=== PATIENT | male | born 1990 | race Caucasian/White ===

== ENCOUNTER 2020-09-16 14:57 | Emergency (ER) | payer MEDICARE, MEDICAID, SELFPAY ==
[2020-09-16 15:13] VITALS: BP 117/76; PULSE 106; RESP 18; TEMP 37.3; O2SAT 98
--- NOTE | 2020-09-16 15:16 | ED.GENADULT ---
HPI - General Adult General Chief complaint: Skin/Abscess/Foreign Body Stated complaint: possible spider bite on leg Source: patient Mode of arrival: ambulatory Limitations: no limitations History of Present Illness HPI narrative: Tim is a 29M with a PMH of bipolar depression and anxiety that presented to the ED with a wound on his left martinez. He hit it on his dash board a couple days. Since then it has had expanding erythema, purulent drainage and pain. he denies fevers, chills, N/V CP and SOB. He has had some sinus congestion. Related Data Home Medications Medication Instructions Recorded Confirmed lamotrigine 25 mg PO BID 09/16/20 09/16/20 methylphenidate HCl 18 mg PO DAILY 09/16/20 09/16/20 Allergies Allergy/AdvReac Type Severity Reaction Status Date / Time No Known Allergies Allergy Verified 09/16/20 15:10 Review of Systems Constitutional: Constitutional: Reports no additional constitutional complaints Eyes: Eyes: Reports no additional eye complaints ENT: Reports system reviewed and no additional complaints, except as documented Cardiovascular: Cardiovascular: Reports no additional cardiovascular complaints Respiratory: Respiratory: Reports no additional respiratory complaints Gastrointestinal: Gastrointestinal: Reports no additional gastrointestinal complaints Genitourinary: Genitourinary: Reports no additional male genitourinary complaints Musculoskeletal: Musculoskeletal: Reports no additional musculoskeletal complaints Integumentary/Breasts: Skin/Breast: Reports as per HPI Neurologic: Reports system reviewed and no additional complaints, except as documented Psychiatric: Psychiatric: Reports no additional psychiatric complaints Endocrine: Endocrine: Reports no additional endocrine complaints Hematologic/Lymphatic: Hematologic/Lymphatic: Reports no additional hematologic/lymphatic complaints Allergic/Immunologic: Allergic/Immunologic: Reports no additional allergic/immunologic complaints Exam Const: General: no acute distress and alert Orientation/consciousness: patient oriented x3 Limitations: No altered mental status HENMT: Head: normal to inspection Mouth: Yes Normal oral and palatal mucosa present Eyes: Conjunctivae: conjunctivae normal Pupils: Equal, round and reactive pupils present Neck: Neck: normal visual inspection Chest: Chest palpation & inspection: normal inspection of the chest Resp: Effort & Inspection: normal respiratory effort Auscultation: clear to auscultation bilaterally Cardio: Rate: regular rate Rhythm: regular rhythm Skin: Other: Left anterior martinez had a quarter sized area with erythema and slight yellow drainage Neuro: General: patient oriented x3 and moves all extremities Psych: Appearance: grossly normal Mental Status: mental status grossly normal Course Course Emergency Course: He was given a dose of clindamycin in the ED Vital Signs Vital signs: Vital Signs Temperature 99.2 F 09/16/20 15:13 Pulse Rate 106 H 09/16/20 15:13 Respiratory Rate 18 09/16/20 15:13 Blood Pressure 117/76 09/16/20 15:13 Pulse Oximetry 98 09/16/20 15:13 Temperature 99.2 F 09/16/20 15:13 Pulse Rate 106 H 09/16/20 15:13 Respiratory Rate 18 09/16/20 15:13 Blood Pressure 117/76 09/16/20 15:13 Pulse Oximetry 98 09/16/20 15:13 Medical Decision Making Vital Signs Vital Signs: Vital Signs Temperature 99.2 F 09/16/20 15:13 Pulse Rate 106 H 09/16/20 15:13 Respiratory Rate 18 09/16/20 15:13 Blood Pressure 117/76 09/16/20 15:13 Pulse Oximetry 98 09/16/20 15:13 Temperature 99.2 F 09/16/20 15:13 Pulse Rate 106 H 09/16/20 15:13 Respiratory Rate 18 09/16/20 15:13 Blood Pressure 117/76 09/16/20 15:13 Pulse Oximetry 98 09/16/20 15:13 Discharge Plan Discharge Clinical Impression: Cellulitis Patient Disposition: Home, Self-Care Condition: Stable Instructions: Antibiotic Form Addition
[2020-09-16] MEDS: CLINDAMYCIN HCL 150 MG CAP 450 MG PO (15:22)
== END 2020-09-16 15:39 | disposition home or self-care (01) ==
PROVIDERS: Emergency Provider Family Medicine
DX: L03.116 Cellulitis of left lower limb (principal)
CPT/HCPCS: 99283; A9270

== ENCOUNTER 2021-04-21 17:38 | Emergency (ER) | payer OTHER, SELFPAY ==
--- NOTE | 2021-04-21 18:03 | ED.NAVMDI ---
HPI - Nausea/Vomiting/Diarrhea General Stated complaint: migraine Time Seen by Provider: 04/21/21 18:03 Related Data Home Medications Medication Instructions Recorded Confirmed lamotrigine 25 mg PO BID 09/16/20 09/16/20 methylphenidate HCl 18 mg PO DAILY 09/16/20 09/16/20 Allergies Allergy/AdvReac Type Severity Reaction Status Date / Time No Known Allergies Allergy Verified 09/16/20 15:10 Discharge Plan Discharge Prescriptions: No Action lamotrigine 25 mg tablet 25 mg PO BID RF: 0 methylphenidate HCl 18 mg tablet extended release 24hr 18 mg PO DAILY RF: 0 clindamycin HCl 150 mg capsule 450 mg PO TID 5 Days Qty: 45 RF: 0
--- NOTE | 2021-04-21 18:05 | ED.HA ---
HPI - Headache General Chief Complaint: Headache Stated Complaint: migraine Time Seen by Provider: 04/21/21 18:03 Source: patient Mode of arrival: ambulatory Limitations: no limitations History of Present Illness HPI Narrative: 30-year-old male with bipolar disorder on lamotrigine, presents to the ER with a 2 day history of -- generalized headache which came on gradually. -- Nausea with multiple episodes of vomiting. -- Photophobia and phonophobia. No history of head injury. no history of fever. No focal neuro deficits. MD elicited complaint: headache Onset (ago): day(s) ( Started 2 days ago) Onset description: gradually Location: generalized Severity: moderate Quality & Timing: aching Exacerbating factors: light and noise Relieving factors: nothing Context: occurred at rest Associated symptoms: none Treatments prior to arrival: none Related Data Home Medications Medication Instructions Recorded Confirmed lamotrigine 25 mg PO BID 09/16/20 04/21/21 methylphenidate HCl 18 mg PO DAILY 09/16/20 04/21/21 Allergies Allergy/AdvReac Type Severity Reaction Status Date / Time No Known Allergies Allergy Verified 04/21/21 18:08 Review of Systems Review of Systems: All systems reviewed & are unremarkable except as noted in HPI and below Constitutional: Constitutional: Reports as per HPI and Reports no additional constitutional complaints Eyes: Eyes: Reports as per HPI and Reports no additional eye complaints ENT: Reports system reviewed and no additional complaints, except as documented Cardiovascular: Cardiovascular: Reports as per HPI and Reports no additional cardiovascular complaints Respiratory: Respiratory: Reports as per HPI and Reports no additional respiratory complaints Gastrointestinal: Gastrointestinal: Reports as per HPI, Reports nausea and Reports vomiting Genitourinary: Genitourinary: Reports no additional male genitourinary complaints Musculoskeletal: Musculoskeletal: Reports no additional musculoskeletal complaints Integumentary/Breasts: Skin/Breast: Reports system reviewed and no additional complaints, except as docu Neurologic: Reports system reviewed and no additional complaints, except as documented and Reports headache(s) Psychiatric: Psychiatric: Reports no additional psychiatric complaints Endocrine: Endocrine: Reports no additional endocrine complaints Hematologic/Lymphatic: Hematologic/Lymphatic: Reports no additional hematologic/lymphatic complaints Allergic/Immunologic: Allergic/Immunologic: Reports no additional allergic/immunologic complaints Exam Const: General: no acute distress and alert Orientation/consciousness: patient oriented x3 HENMT: Head: normal to inspection Eyes: Conjunctivae: conjunctivae normal Pupils: Equal, round and reactive pupils present EOM: EOMs intact bilaterally Direct Ophthalmoscopy: photophobia Neck: Neck: normal visual inspection and no lymphadenopathy Chest: Chest palpation & inspection: normal inspection of the chest Resp: Effort & Inspection: normal respiratory effort Auscultation: clear to auscultation bilaterally Cardio: Rate: regular rate Rhythm: regular rhythm GI: GI Palp: Yes Soft to palpation : General: Yes no CVA tenderness Testes: Testes normal Back/Spine/Pelvis: Back: no CVA tenderness Skin: General skin exam: normal color Rashes: no rashes Neuro: General: patient oriented x3, no meningeal signs, no focal motor deficits and CN's II-XI intact bilaterally Speech: normal speech Extrem: General: normal to inspection Psych: Appearance: grossly normal Mental Status: mental status grossly normal Course Course Emergency Course: headache improved with injectable Toradol and Compazine. Vital Signs Vital signs: Vital Signs Temperature 36.3 C L 04/21/21 18:06 Pulse Rate 80 04/21/21 18:06 Respiratory Rate 16 04/21/21 18:06 Blood Pressure 126/81 04/21/21 18:06 Pulse Oximetry 98 04/21/21 18
[2021-04-21 18:06] VITALS: BP 126/81; PULSE 80; RESP 16; TEMP 36.3; O2SAT 98
[2021-04-21] MEDS: KETOROLAC 30 MG/ML VIAL (*BKC) IM (18:34)
[2021-04-21] MEDS: PROCHLORPERAZINE EDISYLATE 10 MG/2 ML VIAL IM (18:35)
--- NOTE | 2021-04-21 19:15 | PC.NURSE ---
Report given to ALEENA Orozco
[2021-04-21 19:45] VITALS: BP 120/78; PULSE 78; RESP 16; TEMP 36.4; O2SAT 98
== END 2021-04-21 19:48 | disposition home or self-care (01) ==
PROVIDERS: Emergency Provider Internal Medicine Critical Care Medicine; PCP Family Medicine
DX: R51.9 Headache, unspecified (principal)
CPT/HCPCS: 96372; 99284; J0780; J1885

== ENCOUNTER 2021-06-10 22:49 | Emergency (ER) | payer OTHER, SELFPAY ==
[2021-06-10 22:55] VITALS: BP 131/79; PULSE 80; RESP 17; TEMP 36.8; O2SAT 99
--- NOTE | 2021-06-10 23:07 | ED_ITS ---
HPI - Skin/Abscess/Foreign Bdy General Chief complaint: Skin/Abscess/Foreign Body Stated complaint: bug bite Source: patient Mode of arrival: ambulatory Limitations: no limitations History of Present Illness HPI narrative: this is a 30-year-old gentleman that presents with a small lesion to his right lateral thigh that is currently not draining mildly erythematous with no fever or chills. complaint: abscess/boil Onset (ago): day(s) Tetanus up to date: unsure Location: [facility] Related Data Home Medications Medication Instructions Recorded Confirmed lamotrigine 25 mg PO BID 09/16/20 06/10/21 Allergies Allergy/AdvReac Type Severity Reaction Status Date / Time cat dander Allergy Difficulty Verified 06/10/21 23:10 Breathing divalproex sodium Allergy Abdominal Verified 06/10/21 23:06 [From Depakote] Pain methylphenidate Allergy Jittery Verified 06/10/21 23:10 [From Ritalin] olanzapine [From Zyprexa] Allergy Unknown Verified 06/10/21 23:10 Review of Systems Review of Systems: All systems reviewed & are unremarkable except as noted in HPI and below PMFSH Past Medical History Medical History Bipolar 1 disorder Exam Const: General: no acute distress Orientation/consciousness: patient oriented x3 HENMT: Head: normal to inspection Eyes: Conjunctivae: conjunctivae normal Pupils: Equal, round and reactive pupils present Neck: Neck: normal visual inspection and no lymphadenopathy Chest: Chest palpation & inspection: normal inspection of the chest Resp: Effort & Inspection: normal respiratory effort Cardio: Rate: regular rate Rhythm: regular rhythm GI: Auscultation: normal bowel sounds Skin: Other: small nonfluctuant abscess with mild surrounding erythema Neuro: General: patient oriented x3 Extrem: General: normal to inspection Psych: Mental Status: mental status grossly normal Affect: normal affect Course Course Emergency Course: patient received IM ceftriaxone, patient doing well updated patient with his tetanus. Critical Care Time Critical Care Time Critical Care Time: No Discharge Plan Discharge Clinical Impression: Abscess of skin or subcutaneous tissue Patient Disposition: Home, Self-Care Condition: Stable Instructions: Antibiotic Form, Abscess (ED) Additional Instructions: Take medicine as prescribed and follow-up with primary care physician if sy mptoms persist or worsen. Prescriptions: New amoxicillin-pot clavulanate [Augmentin] 500-125 mg tablet 1 tablet PO Q12H Qty: 20 RF: 0 No Action lamotrigine 25 mg tablet 25 mg PO BID RF: 0 Follow-up/Referrals: Itzel,MD Hugo [Primary Care Provider] - Time of Disposition: 23:12
[2021-06-10] MEDS: TETANUS,DIPHTHERIA,AC PERTUSSIS ADULT 0.5 ML (ADACEL) IM (23:29)
[2021-06-10] MEDS: cefTRIAXone 1 GM VIAL IM (23:30)
[2021-06-10] MEDS: LIDOCAINE HCL 1% LOCAL INJ 20 ML VIAL (23:30)
[2021-06-10 23:55] VITALS: BP 113/74; PULSE 66; RESP 17; TEMP 36.8; O2SAT 98
== END 2021-06-10 23:55 | disposition home or self-care (01) ==
PROVIDERS: Emergency Provider Emergency Medicine; PCP Family Medicine
DX: L02.91 Cutaneous abscess, unspecified (principal)
CPT/HCPCS: 90471; 90715; 96372; 99283; J0696

== ENCOUNTER 2021-08-02 22:55 | Emergency (ER) | payer OTHER, SELFPAY ==
[2021-08-02 23:05] VITALS: BP 123/74; PULSE 95; RESP 16; TEMP 37.7; O2SAT 99
--- NOTE | 2021-08-02 23:37 | ED.URI ---
HPI - URI/Sore Throat General Chief Complaint: Upper Respiratory Infection Stated Complaint: fever, cough, dizzy, tired Time Seen by Provider: 08/02/21 23:37 History of Present Illness HPI Narrative: 30-year-old male patient is here with complaints of sinus congestion and fever. States that he was exposed to his girlfriend to turn positive for COVID. He states he had fever earlier in the day and he slept and the fever broke on its own but he was advised by his girlfriend to come to the hospital. He states that he does not feel bad at this time although earlier he felt weak at home. Patient has mild cough. The cough is dry.He is a smoker. He is vaccinated for COVID Related Data Home Medications Medication Instructions Recorded Confirmed lamotrigine 25 mg tablet 25 mg PO BID 09/16/20 06/10/21 methylphenidate HCl 18 mg 18 tablet PO DAILY 08/02/21 08/02/21 tablet,extended release 24 hr ([facility]) Allergies Allergy/AdvReac Type Severity Reaction Status Date / Time cat dander Allergy Difficulty Verified 08/02/21 23:55 Breathing divalproex sodium Allergy Abdominal Verified 08/02/21 23:55 [From Depakote] Pain methylphenidate Allergy Jittery Verified 08/02/21 23:55 [From Ritalin] olanzapine [From Zyprexa] Allergy Unknown Verified 08/02/21 23:55 Review of Systems Review of Systems: All systems reviewed & are unremarkable except as noted in HPI and below Constitutional: Constitutional: Reports no additional constitutional complaints and Reports fever(s) Eyes: Eyes: Reports no additional eye complaints ENT: Reports system reviewed and no additional complaints, except as documented, Reports as per HPI, Denies dysphagia, Denies dizziness, Reports nasal congestion and Denies sore throat Cardiovascular: Cardiovascular: Reports no additional cardiovascular complaints Respiratory: Respiratory: Reports no additional respiratory complaints Gastrointestinal: Gastrointestinal: Reports no additional gastrointestinal complaints Musculoskeletal: Musculoskeletal: Reports no additional musculoskeletal complaints Integumentary/Breasts: Skin/Breast: Reports system reviewed and no additional complaints, except as docu Neurologic: Reports system reviewed and no additional complaints, except as documented Psychiatric: Psychiatric: Reports no additional psychiatric complaints PMFSH Past Medical History Medical History Bipolar 1 disorder Exam Const: General: healthy appearing, no acute distress and alert Nutritional Appearance: well nourished Orientation/consciousness: patient oriented x3 Limitations: no limitations HENMT: Head: normal to inspection Ears: external ears normal General nose exam: Normal external nose present Face and sinus: normal facial exam Mouth: Yes Normal oral and palatal mucosa present and Yes moist mucous membranes Throat: posterior oropharynx normal and uvula midline Eyes: Conjunctivae: conjunctivae normal Pupils: Equal, round and reactive pupils present EOM: EOMs intact bilaterally Direct Ophthalmoscopy: no photophobia Neck: Neck: normal visual inspection and no lymphadenopathy Chest: Chest palpation & inspection: normal inspection of the chest Resp: Effort & Inspection: normal respiratory effort, not labored, no retractions and no use of accessory muscles Auscultation: clear to auscultation bilaterally Cardio: Rate: regular rate Rhythm: regular rhythm Heart sounds: no murmurs GI: GI Palp: Yes Soft to palpation and No Tenderness to palpation present (GI) Skin: General skin exam: normal color Rashes: no rashes Wounds: no wounds Neuro: General: patient oriented x3, moves all extremities, no focal motor deficits and CN's II-XI intact bilaterally Cranial nerves: Yes Nystagmus not present Speech: normal speech Gait exam (Neuro): Normal gait present Extrem: General: normal to inspection Psych: Mental Status: mental
[2021-08-03 00:05] LABS: SARS-CoV-2 Ag Positive (Negative)
[2021-08-03 00:20] VITALS: BP 104/82; PULSE 80; RESP 16; TEMP 37.6; O2SAT 98
== END 2021-08-03 00:25 | disposition home or self-care (01) ==
PROVIDERS: Emergency Provider Emergency Medicine; PCP Family Medicine
DX: U07.1 COVID-19 (principal)
CPT/HCPCS: 87426; 99283; C9803

== ENCOUNTER 2021-11-20 08:57 | Outpatient (CLI) | payer OTHER, SELFPAY ==
[2021-11-20 11:10] LABS: Liquefaction Semen Complete in 30 min. (<30 minutes); Semen Color Opaque (Grey-opaque); Semen Immotility 80 %; Semen Morphology Result to Follow; Semen Non-Progressive Motility 10 %; Semen Progressive Motility 0 % (>32); Semen Total Motility 10 (>40% (PM+NP)); Semen Viscosity Increased (Not Increa.); Sperm Count 1.1 Mil/mL (60-150 million/mL); Volume Semen 0.5 mL (1.5-5.0); pH Semen 8.5 (7.2-8.0)
[2021-12-02 20:53] LABS: Fructose, Semen 460 mg/dL (150-600)
== END 2021-11-20 08:58 | disposition home or self-care (01) ==
LOC: CHSLAB 09:01
PROVIDERS: PCP Physician Assistant; Visit Provider Family Medicine
DX: N46.9 Male infertility, unspecified (principal)
CPT/HCPCS: 82757; 88160; 89320

== ENCOUNTER 2021-12-21 18:14 | Emergency (ER) | payer OTHER, SELFPAY ==
[2021-12-21 18:15] VITALS: BP 117/56; PULSE 86; RESP 16; TEMP 36.8; O2SAT 99
[2021-12-21] MEDS: AMOXICILLIN/CLAVULANATE K 875-125 MG TAB 1 TABLET PO (19:12)
--- NOTE | 2021-12-21 19:14 | ED.GENADULT ---
HPI - General Adult General Chief complaint: Extremity Injury, Upper Stated complaint: left ring finger pain Source: patient Mode of arrival: ambulatory Limitations: no limitations History of Present Illness HPI narrative: patient is a 31-year-old white male started having pain and irritation swelling and redness to his left ring finger along nail bed laterally complains of pain 5/10. Says the tip of his fingers to low bit numb. Otherwise no loss of function. Denies any fever other symptoms or other rash nausea vomiting he is walking talking seeing hearing fine denies any problems eating or drinking, or voiding or stooling. He tried to soak it yesterday. He has not taken anything for pain. He has not had any these before. Denies any other complaints MD complaint: Left ring finger sore swollen or red Related Data Home Medications Medication Instructions Recorded Confirmed lamotrigine 25 mg tablet 25 mg PO BID 09/16/20 12/21/21 Allergies Allergy/AdvReac Type Severity Reaction Status Date / Time cat dander Allergy Difficulty Verified 12/21/21 18:22 Breathing divalproex sodium Allergy Abdominal Verified 12/21/21 18:22 [From Depakote] Pain methylphenidate Allergy Jittery Verified 12/21/21 18:22 [From Ritalin] olanzapine [From Zyprexa] Allergy Unknown Verified 12/21/21 18:22 Review of Systems Review of Systems: All systems reviewed & are unremarkable except as noted in HPI and below Constitutional: Constitutional: Reports no additional constitutional complaints Eyes: Eyes: Reports no additional eye complaints ENT: Reports system reviewed and no additional complaints, except as documented Cardiovascular: Cardiovascular: Reports no additional cardiovascular complaints Respiratory: Respiratory: Reports no additional respiratory complaints Gastrointestinal: Gastrointestinal: Reports no additional gastrointestinal complaints Genitourinary: Genitourinary: Reports no additional male genitourinary complaints Musculoskeletal: Musculoskeletal: Reports no additional musculoskeletal complaints Integumentary/Breasts: Skin/Breast: Reports system reviewed and no additional complaints, except as docu, Reports as per HPI and Reports erythema Neurologic: Reports system reviewed and no additional complaints, except as documented, Reports as per HPI and Reports numbness PMFSH Past Medical History Medical History Bipolar 1 disorder Exam Narrative: blood pressure 117/56 pulse is 86 respirations are 16 temperature is 36.8? centigrade, O2 sat 99% on room air. Patient is a slim white male appears in no apparent distress left hand index finger has a paronychia over the lateral border of the nail bed swollen red and tender. Sensation to the tip is finger is decreased. He has full range of motion of his fingers and hands and wrist and no loss of motor function. Const: General: healthy appearing Nutritional Appearance: well nourished Orientation/consciousness: patient oriented x3 Limitations: no limitations Course Course Emergency Course: Alcohol Petterchak was used to cleanse the distal phalanx of his left index finger and a 18 gauge needle was used to undermine the cuticle which gave rise to few drops of pus. The finger was cleansed and a Band-Aid was applied. Patient was instructed to the soaking as much as possible he is given Augmentin 875 mg here in the emergency department to get a prescription filled tomorrow for twice a day for the next 7 days at his local pharmacy. He can take Tylenol and ibuprofen when he got home. I offered him a Toradol shot but he refused this. Vital Signs Vital signs: Vital Signs Temperature 36.8 C 12/21/21 18:15 Pulse Rate 86 12/21/21 18:15 Respiratory Rate 16 12/21/21 18:15 Blood Pressure 117/56 L 12/21/21 18:15 Pulse Oximetry 99 12/21/21 18:15 Oxygen Delivery Room Air 12/21/21 18:15
== END 2021-12-21 19:23 | disposition home or self-care (01) ==
PROVIDERS: Emergency Provider Emergency Medicine; PCP Family Medicine
DX: L03.012 Cellulitis of left finger (principal)
CPT/HCPCS: 99283; A9270

== ENCOUNTER 2021-12-28 19:27 | Emergency (ER) | payer OTHER, SELFPAY ==
--- NOTE | ~2021-12-28 | XR_ITS ---
EXAMINATION: XR chest 1V portable Exam Date/Time: 12/28/2021 20:00 SPECIAL EVENTS DIRECTOR HISTORY: fever, Cough Comparison: None available. RESULT: Lines, tubes, and devices: None. Lungs and pleura: Clear. Cardiomediastinal silhouette: Normal. Other: No acute osseous or upper abdominal finding. IMPRESSION: No acute cardiopulmonary process. Reviewed, dictated and finalized at location K. IAL EVENTS DIRECTOR
[2021-12-28 19:30] VITALS: BP 116/78; PULSE 93; RESP 16; TEMP 38.2; O2SAT 98
[2021-12-28 20:21] LABS: Strep Group A RT-PCR Negative (Negative)
[2021-12-28 20:33] LABS: Influenza A QL RT-PCR Positive (Negative); Influenza B QL RT-PCR Negative (Negative); SARS-CoV-2 RNA PCR Negative (Negative)
[2021-12-28] MEDS: IBUPROFEN 400 MG TABLET 800 MG PO (20:37)
[2021-12-28] MEDS: ACETAMINOPHEN 325 MG TABLET 650 MG PO (20:38)
[2021-12-28 20:47] VITALS: BP 114/76; PULSE 87; RESP 20; TEMP 36.7; O2SAT 94
[2021-12-28] MEDS: OSELTAMIVIR PHOSPHATE 75 MG CAPSULE PO (20:48)
--- NOTE | 2021-12-28 20:54 | ED.FEVER ---
HPI - Fever General Chief Complaint: Fever Stated Complaint: fever Time Seen by Provider: 12/28/21 19:29 Source: patient and RN notes reviewed Mode of arrival: ambulatory Limitations: no limitations History of Present Illness MD elicited complaint: fever Onset (ago): day(s) (2) Measured temperature: 100.8 C Context: recent travel Exacerbating factors: nothing Relieving factors: acetaminophen Associated symptoms: denies other symptoms, cough and shortness of breath Treatments prior to arrival fever: none Related Data Home Medications Medication Instructions Recorded Confirmed lamotrigine 25 mg tablet 25 mg PO BID 09/16/20 12/28/21 Allergies Allergy/AdvReac Type Severity Reaction Status Date / Time cat dander Allergy Difficulty Verified 12/21/21 18:22 Breathing divalproex sodium Allergy Abdominal Verified 12/21/21 18:22 [From Depakote] Pain methylphenidate Allergy Jittery Verified 12/21/21 18:22 [From Ritalin] olanzapine [From Zyprexa] Allergy Unknown Verified 12/21/21 18:22 Review of Systems Review of Systems: All systems reviewed & are unremarkable except as noted in HPI and below Constitutional: Constitutional: Reports no additional constitutional complaints and Reports fever(s) Eyes: Eyes: Reports no additional eye complaints ENT: Reports system reviewed and no additional complaints, except as documented Cardiovascular: Cardiovascular: Reports no additional cardiovascular complaints Respiratory: Respiratory: Reports no additional respiratory complaints, Reports cough and Reports dyspnea Gastrointestinal: Gastrointestinal: Reports no additional gastrointestinal complaints Musculoskeletal: Musculoskeletal: Reports no additional musculoskeletal complaints Integumentary/Breasts: Skin/Breast: Reports system reviewed and no additional complaints, except as docu Neurologic: Reports system reviewed and no additional complaints, except as documented Psychiatric: Psychiatric: Reports no additional psychiatric complaints Endocrine: Endocrine: Reports no additional endocrine complaints Hematologic/Lymphatic: Hematologic/Lymphatic: Reports no additional hematologic/lymphatic complaints Allergic/Immunologic: Allergic/Immunologic: Reports no additional allergic/immunologic complaints PMFSH Past Medical History Medical History Bipolar 1 disorder Bronchitis Influenza Exam Const: General: no acute distress and well nourished Nutritional Appearance: well nourished Orientation/consciousness: patient oriented x3 Limitations: no limitations HENMT: Head: normal to inspection Ears: external ears normal, TM's normal bilaterally and EAC's normal Face/Nose/Sinus: Normal external nose present, Normal nares present, normal facial exam and sinuses nontender Face and sinus: normal facial exam and sinuses nontender Mouth: Yes Normal oral and palatal mucosa present and Yes moist mucous membranes Teeth and gingiva: dentition normal Throat: posterior oropharynx normal Eyes: Conjunctivae: conjunctivae normal Pupils: Equal, round and reactive pupils present EOM: EOMs intact bilaterally Neck: Neck: normal visual inspection, no lymphadenopathy and no meningeal signs Chest: Chest palpation & inspection: normal inspection of the chest Resp: Effort & Inspection: normal respiratory effort Auscultation: clear to auscultation bilaterally, rhonchi and wheezes Cardio: Rate: regular rate Rhythm: regular rhythm GI: GI Palp: Yes Soft to palpation and No Tenderness to palpation present (GI) Auscultation: normal bowel sounds : General: Yes bladder normal to palpation and Yes no CVA tenderness Back/Spine/Pelvis: Back: no CVA tenderness Skin: General skin exam: normal color Rashes: no rashes Wounds: no wounds Neuro: General: patient oriented x3, moves all extremities, no meningeal signs, no focal motor deficits and CN's II-XI intact bilaterally C
--- NOTE | 2021-12-28 21:05 | ED.FEVER ---
HPI - Fever General Chief Complaint: Fever Stated Complaint: fever Time Seen by Provider: 12/28/21 19:29 Source: patient and RN notes reviewed Mode of arrival: ambulatory Limitations: no limitations History of Present Illness MD elicited complaint: fever Measured temperature: 100.8 C Exacerbating factors: nothing Relieving factors: acetaminophen and ibuprofen Associated symptoms: cough Treatments prior to arrival fever: acetaminophen and ibuprofen Related Data Home Medications Medication Instructions Recorded Confirmed lamotrigine 25 mg tablet 25 mg PO BID 09/16/20 12/28/21 Allergies Allergy/AdvReac Type Severity Reaction Status Date / Time cat dander Allergy Difficulty Verified 12/21/21 18:22 Breathing divalproex sodium Allergy Abdominal Verified 12/21/21 18:22 [From Depakote] Pain methylphenidate Allergy Jittery Verified 12/21/21 18:22 [From Ritalin] olanzapine [From Zyprexa] Allergy Unknown Verified 12/21/21 18:22 Review of Systems Review of Systems: All systems reviewed & are unremarkable except as noted in HPI and below Constitutional: Constitutional: Reports fever(s) Eyes: Eyes: Reports no additional eye complaints ENT: Reports system reviewed and no additional complaints, except as documented Cardiovascular: Cardiovascular: Reports no additional cardiovascular complaints Respiratory: Respiratory: Reports no additional respiratory complaints and Reports cough Gastrointestinal: Gastrointestinal: Reports no additional gastrointestinal complaints Musculoskeletal: Musculoskeletal: Reports no additional musculoskeletal complaints Integumentary/Breasts: Skin/Breast: Reports system reviewed and no additional complaints, except as docu Neurologic: Reports system reviewed and no additional complaints, except as documented Psychiatric: Psychiatric: Reports no additional psychiatric complaints Endocrine: Endocrine: Reports no additional endocrine complaints Hematologic/Lymphatic: Hematologic/Lymphatic: Reports no additional hematologic/lymphatic complaints Allergic/Immunologic: Allergic/Immunologic: Reports no additional allergic/immunologic complaints PMFSH Past Medical History Medical History Bipolar 1 disorder Bronchitis Influenza Exam Const: General: no acute distress and well nourished Nutritional Appearance: well nourished Orientation/consciousness: patient oriented x3 Limitations: no limitations HENMT: Head: normal to inspection Ears: external ears normal, TM's normal bilaterally and EAC's normal Face/Nose/Sinus: Normal external nose present, Normal nares present, normal facial exam and sinuses nontender Face and sinus: normal facial exam and sinuses nontender Mouth: Yes Normal oral and palatal mucosa present and Yes moist mucous membranes Teeth and gingiva: dentition normal Throat: posterior oropharynx normal Eyes: Conjunctivae: conjunctivae normal Pupils: Equal, round and reactive pupils present EOM: EOMs intact bilaterally Neck: Neck: normal visual inspection, no lymphadenopathy and no meningeal signs Chest: Chest palpation & inspection: normal inspection of the chest Resp: Effort & Inspection: normal respiratory effort Auscultation: clear to auscultation bilaterally Cardio: Rate: regular rate Rhythm: regular rhythm GI: GI Palp: Yes Soft to palpation and No Tenderness to palpation present (GI) Auscultation: normal bowel sounds : General: Yes bladder normal to palpation and Yes no CVA tenderness Back/Spine/Pelvis: Back: no CVA tenderness Skin: General skin exam: normal color Rashes: no rashes Wounds: no wounds Neuro: General: patient oriented x3, moves all extremities, no meningeal signs, no focal motor deficits and CN's II-XI intact bilaterally Cranial nerves: Yes Equal, round and reactive pupils present and Yes Nystagmus not present Speech: normal speech Gait exam (Neuro): Normal gait pr
== END 2021-12-28 21:12 | disposition home or self-care (01) ==
PROVIDERS: Emergency Provider Emergency Medicine; PCP Family Medicine
DX: J11.1 Influenza due to unidentified influenza virus with other respiratory manifestations (principal); J40 Bronchitis, not specified as acute or chronic; Z20.822 Contact with and (suspected) exposure to COVID-19
CPT/HCPCS: 71045; 87502; 87651; 99283; A9270; U0003; U0005

== ENCOUNTER 2022-02-14 18:54 | Emergency (ER) | payer OTHER, SELFPAY ==
[2022-02-14 19:02] VITALS: BP 126/87; PULSE 95; RESP 16; TEMP 37; O2SAT 98
--- NOTE | 2022-02-14 19:23 | ED.GENADULT ---
HPI - General Adult General Chief complaint: Unspecified Stated complaint: wants tested for covid Time Seen by Provider: 02/14/22 19:10 History of Present Illness HPI narrative: Tim is a 31M with a PMH of tobacco abuse that presented to the ED with concerns of covid exposure. He was tired yesterday on morning, but he thought that was from the commotion from the holiday. He has no other symptoms including dyspnea, CP, N/V, diarrhea, myalgias, fevers or chills. Related Data Home Medications Medication Instructions Recorded Confirmed lamotrigine 25 mg tablet 25 mg PO BID 09/16/20 02/14/22 Allergies Allergy/AdvReac Type Severity Reaction Status Date / Time cat dander Allergy Difficulty Verified 02/14/22 19:08 Breathing divalproex sodium Allergy Abdominal Verified 02/14/22 19:08 [From Depakote] Pain methylphenidate Allergy Jittery Verified 02/14/22 19:08 [From Ritalin] olanzapine [From Zyprexa] Allergy Unknown Verified 02/14/22 19:08 Review of Systems Review of Systems: All systems reviewed & are unremarkable except as noted in HPI and below PMFSH Past Medical History Medical History Bipolar 1 disorder Bronchitis Influenza Exam Const: General: cooperative, healthy appearing and comfortable; No no acute distress Nutritional Appearance: average body habitus and well nourished Orientation/consciousness: oriented to person, oriented to place and oriented to time HENMT: Head: normal to inspection, normocephalic and atraumatic Eyes: General: appearance normal, both eyes and all related structures Alignment and Position: alignment normal Neck: Neck: normal visual inspection Chest: Chest palpation & inspection: normal inspection of the chest Resp: Effort & Inspection: normal respiratory effort and able to speak in complete sentences Auscultation: wheezes expiratory wheezes and throughout Cardio: Jugular venous distension: no JVD Rate: regular rate Rhythm: regular rhythm Skin: General skin exam: normal color and no rashes or lesions noted Neuro: General: oriented to person, oriented to place, oriented to time and patient oriented x3 Cranial nerves: Yes CN's II-XII intact bilaterally Cognition (Neuro): normal cognition Speech: normal speech Gait exam (Neuro): Normal gait present Extrem: General: normal to inspection Psych: Appearance: grossly normal Mental Status: mental status grossly normal Speech and movement: Normal speech and movement present Affect: normal affect Attitude: cooperative Thought process: Normal thought process present Thought content: Yes Normal thought content present Course Course Emergency Course: Ordered labs. Vital Signs Vital signs: Vital Signs Temperature 98.6 F 02/14/22 19:02 Pulse Rate 95 02/14/22 19:02 Respiratory Rate 16 02/14/22 19:02 Blood Pressure 126/87 02/14/22 19:02 Pulse Oximetry 98 02/14/22 19:02 Oxygen Delivery Room Air 02/14/22 19:02 Temperature 98.8 F 02/14/22 20:22 Pulse Rate 86 02/14/22 20:22 Respiratory Rate 16 02/14/22 20:22 Blood Pressure 111/77 02/14/22 20:22 Pulse Oximetry 97 02/14/22 20:22 Oxygen Delivery Room Air 02/14/22 20:22 Medical Decision Making MDM Narrative Medical decision making narrative: DDx: flu vs covid vs anxiety 3rd [employer] conversations: Labs/Imaging: viral testing negative Shared decision making: Consultants/ Admitting Providers: Chronic conditions: tobacco abuse Admission consideration: Social Determinants of Health: Vital Signs Vital Signs: Vital Signs Temperature 98.6 F 02/14/22 19:02 Pulse Rate 95 02/14/22 19:02 Respiratory Rate 16 02/14/22 19:02 Blood Pressure 126/87 02/14/22 19:02 Pulse Oximetry 98 02/14/22 19:02 Oxygen Delivery Room Air 02/14/22 19:02 Temperature 98.8 F 02/14/22 20:22 Pulse Rate 86 02/14/22 20:22 Respiratory Rate 16 01/21
[2022-02-14 20:15] LABS: Influenza A QL RT-PCR Negative (Negative); Influenza B QL RT-PCR Negative (Negative); SARS-CoV-2 RNA PCR Negative (Negative)
[2022-02-14 20:16] LABS: RSV RNA, RT-PCR Negative (Negative)
[2022-02-14 20:22] VITALS: BP 111/77; PULSE 86; RESP 16; TEMP 37.1; O2SAT 97
== END 2022-02-14 20:27 | disposition home or self-care (01) ==
PROVIDERS: Emergency Provider Family Medicine; PCP Family Medicine
DX: R06.2 Wheezing (principal); Z20.822 Contact with and (suspected) exposure to COVID-19
CPT/HCPCS: 87637; 99283

== ENCOUNTER 2022-06-19 19:16 | Emergency (ER) | payer OTHER, SELFPAY ==
[2022-06-19 19:18] VITALS: BP 119/78; PULSE 64; RESP 20; TEMP 36.4; O2SAT 100
--- NOTE | 2022-06-19 19:18 | ED_ITS ---
HPI - General Adult General Chief complaint: Unspecified Stated complaint: Sore Throat Source: patient Mode of arrival: ambulatory Limitations: no limitations History of Present Illness HPI narrative: 31-year-old white male complains sore throat. Start today daughter had a positive strep screen was sick a week ago. Hurts to swallow denies any cough or any other symptoms. No nausea vomiting diarrhea problems voiding or stooling eating or drinking. Other than it hurts when he swallows. Denies any fever cough runny nose rash or itching lightheadedness or dizziness rash or itching bleeding or bruising or any other complaints. Related Data Home Medications Medication Instructions Recorded Confirmed lamotrigine 25 mg tablet 25 mg PO BID 09/16/20 06/19/22 Allergies Allergy/AdvReac Type Severity Reaction Status Date / Time cat dander Allergy Difficulty Verified 06/19/22 19:22 Breathing divalproex sodium Allergy Abdominal Verified 06/19/22 19:22 [From Depakote] Pain methylphenidate Allergy Jittery Verified 06/19/22 19:22 [From Ritalin] olanzapine [From Zyprexa] Allergy Unknown Verified 06/19/22 19:22 [facility] Past Medical History Medical History Bipolar 1 disorder Bronchitis Influenza Exam Narrative: White male no apparent distress. Ears TMs are normal. Oropharynx is erythematous the posterior pharynx with no exudates. Moist mucous membranes. Neck positive anterior lymphadenopathy. Lungs are clear heart is regular rate and rhythm without murmurs gallops or rubs. Extremities no cyanosis clubbing or edema neurologically he is alert and oriented motor and sensory grossly intact. Medical Decision Making [facility] Narrative Medical decision making narrative: Independent Historian: Patient's girlfriend Differential Dx includes but not limited to: strep pharyngitis, viral pharyngitis, URI Independently Reviewed by me: External Source Review: Shared decision Making: was discussed with the patient we could either send his throat swab for strep screen or we could just empirically treat him. Using shared decision making was decided to go ahead and just treat him empirically as a positive strep pharyngitis. So patient was given Pen-VK 500 in the ED and a prescription to get filled tomorrow. Discussed with Discharge Plan Discharge Prescriptions: No Action albuterol sulfate 90 mcg/actuation HFA aerosol inhaler 1 inh inhalation QID PRN (Reason: shortness of breath or wheezing) Qty: 8.5 0RF lamotrigine 25 mg tablet 25 mg PO BID Follow-up/Referrals: Itzel,MD Hugo [Primary Care Provider] -
[2022-06-19] MEDS: KETOROLAC 30 MG/ML VIAL (*BKC) IM (19:38)
== END 2022-06-19 19:52 | disposition home or self-care (01) ==
PROVIDERS: Emergency Provider Emergency Medicine; PCP Family Medicine
DX: J02.0 Streptococcal pharyngitis (principal); F31.9 Bipolar disorder, unspecified; Z79.51 Long term (current) use of inhaled steroids
CPT/HCPCS: 96372; 99283; A9270; J1885

== ENCOUNTER 2022-07-15 22:22 | Emergency (ER) | payer OTHER, SELFPAY ==
[2022-07-15 22:33] VITALS: BP 127/70; PULSE 60; RESP 18; TEMP 36.8; O2SAT 99
--- NOTE | 2022-07-15 23:36 | ED.GENADULT ---
HPI - General Adult General Chief complaint: Unspecified Stated complaint: Hernia Time Seen by Provider: 07/15/22 23:10 History of Present Illness HPI narrative: The patient is otherwise healthy 31-year-old male who does have frequent bowel movements every day, between 3-4 bowel movements daily. No constipation. He noticed a lump on his anal region when he was wiping this afternoon after a bowel movement. It is not painful. There is no tenderness in the area. There is no drainage of any fluid or blood or pus. The patient has no tenderness in the perirectal region. No history of hemorrhoids or perianal abscesses. No anal trauma. No anal intercourse. Related Data Home Medications Medication Instructions Recorded Confirmed lamotrigine 25 mg tablet 25 mg PO BID 09/16/20 07/15/22 Allergies Allergy/AdvReac Type Severity Reaction Status Date / Time cat dander Allergy Difficulty Verified 07/15/22 22:54 Breathing divalproex sodium Allergy Abdominal Verified 07/15/22 22:54 [From Depakote] Pain methylphenidate Allergy Jittery Verified 07/15/22 22:54 [From Ritalin] olanzapine [From Zyprexa] Allergy Unknown Verified 07/15/22 22:54 Review of Systems Review of Systems: All systems reviewed & are unremarkable except as noted in HPI and below Constitutional: Constitutional: Denies chills, Denies excessive sweating, Denies fatigue, Denies fever(s), Denies headache(s) and Denies weakness Eyes: Eyes: Denies change in vision and Denies photophobia ENT: Denies dysphagia, Denies dizziness, Denies headache(s), Denies lip swelling, Denies nasal congestion, Denies sore throat and Denies tongue swelling Cardiovascular: Cardiovascular: Denies chest pain, Denies syncope, Denies rapid heart rate and Denies dyspnea Respiratory: Respiratory: Denies cough, Denies dyspnea and Denies wheezing Gastrointestinal: Gastrointestinal: Denies abdominal pain, Denies constipation, Denies dysphagia, Denies diarrhea, Denies nausea and Denies vomiting Genitourinary: Genitourinary: Denies hematuria, Denies dysuria, Denies urinary frequency and Denies urinary urgency Musculoskeletal: Musculoskeletal: Denies back pain, Denies myalgias, Denies arthralgias, Denies joint swelling and Denies numbness Integumentary/Breasts: Skin/Breast: Denies pruritus, Denies erythema and Denies rash Neurologic: Denies confusion, Denies dizziness, Denies syncope, Denies headache(s), Denies focal weakness, Denies numbness and Denies weakness Psychiatric: Psychiatric: Denies anxiety and Denies confusion Endocrine: Endocrine: Denies excessive sweating and Denies fatigue Hematologic/Lymphatic: Hematologic/Lymphatic: Denies easy bleeding and Denies easy bruising Allergic/Immunologic: Allergic/Immunologic: Denies lip swelling, Denies tongue swelling and Denies wheezing PMFSH Past Medical History Medical History Bipolar 1 disorder Bronchitis Influenza Exam Const: General: healthy appearing, no acute distress, alert and well nourished Nutritional Appearance: well nourished Orientation/consciousness: patient oriented x3 Limitations: no limitations HENMT: Head: normal to inspection Ears: external ears normal Face/Nose/Sinus: normal facial exam Face and sinus: normal facial exam Mouth: Yes moist mucous membranes Throat: posterior oropharynx normal Eyes: Conjunctivae: conjunctivae normal Pupils: Equal, round and reactive pupils present EOM: EOMs intact bilaterally Neck: Neck: normal visual inspection and no meningeal signs Chest: Chest palpation & inspection: normal inspection of the chest and no tenderness Resp: Effort & Inspection: normal respiratory effort and not labored Auscultation: clear to auscultation bilaterally, no crackles, no rhonchi and no wheezes Cardio: Rate: regular rate Rhythm: regular rhythm Heart sounds: no murmurs GI: Inspection: non-distended GI Palp: Yes Soft to palp
[2022-07-15 23:52] VITALS: BP 117/61; PULSE 80; RESP 18; O2SAT 99
== END 2022-07-15 23:56 | disposition home or self-care (01) ==
PROVIDERS: Emergency Provider Emergency Medicine; PCP Family Medicine
DX: K64.5 Perianal venous thrombosis (principal); F31.9 Bipolar disorder, unspecified
CPT/HCPCS: 99283

== ENCOUNTER 2022-07-30 18:47 | Emergency (ER) | payer OTHER, SELFPAY ==
[2022-07-30 18:52] VITALS: BP 125/64; PULSE 89; RESP 17; TEMP 37.1; O2SAT 99
--- NOTE | 2022-07-30 18:56 | ED.GENADULT ---
HPI - General Adult General Chief complaint: Unspecified Stated complaint: swollen nare Time Seen by Provider: 07/30/22 18:56 Source: patient Mode of arrival: ambulatory Limitations: no limitations History of Present Illness MD complaint: 32-year-old white male complaining of left nares discomfort this morning. Treatments prior to arrival: other (Patient pulled to hears from the left naris seemingly got better but then it got worse and so he came in for evaluation. Otherwise denies any problems eating drinking stooling or voiding. Denies any cough shortness of breath runny nose bleeding or bruising weakness numbness nausea vomiting diarrhe) Related Data Home Medications Medication Instructions Recorded Confirmed lamotrigine 25 mg tablet 25 mg PO BID 09/16/20 07/30/22 Allergies Allergy/AdvReac Type Severity Reaction Status Date / Time cat dander Allergy Difficulty Verified 07/30/22 18:51 Breathing divalproex sodium Allergy Abdominal Verified 07/30/22 18:51 [From Depakote] Pain methylphenidate Allergy Jittery Verified 07/30/22 18:51 [From Ritalin] olanzapine [From Zyprexa] Allergy Unknown Verified 07/30/22 18:51 Review of Systems Review of Systems: All systems reviewed & are unremarkable except as noted in HPI and below PMFSH Past Medical History Medical History Bipolar 1 disorder Bronchitis Influenza Exam Narrative: 32-year-old white male had some irritation of his left nares then this morning Patient pulled 2 hairs from the left naris seemingly got better but then it got worse and so he came in for evaluation.? Otherwise denies any problems eating drinking stooling or voiding.? Denies any cough shortness of breath runny nose bleeding or bruising weakness numbness nausea vomiting diarrhea constipation change in bowel habits rash or itching bleeding or bruising swelling or lumps or bumps or any other complaints. White male no apparent distress.? Head normocephalic, atraumatic.? Eyes conjunctiva pink sclera nonicteric.? Extraocular movements are intact.? nose: Right naris normal left nares small amount of erythema on the septum a slight swelling of the nares internally and tenderness.? Oropharynx is clear with moist mucous membranes without exudates.? Neck is supple nontender no lymphadenopathy.? Neurologically he is alert and oriented motor and sensory grossly intact skin is warm and dry without lesions. Extremities no cyanosis clubbing or edema. Course Vital Signs Vital signs: Vital Signs Temperature 37.1 C 07/30/22 18:52 Pulse Rate 89 07/30/22 18:52 Respiratory Rate 17 07/30/22 18:52 Blood Pressure 125/64 07/30/22 18:52 Pulse Oximetry 99 07/30/22 18:52 Oxygen Delivery Room Air 07/30/22 18:52 Temperature 37.1 C 07/30/22 18:52 Pulse Rate 89 07/30/22 18:52 Respiratory Rate 17 07/30/22 18:52 Blood Pressure 125/64 07/30/22 18:52 Pulse Oximetry 99 07/30/22 18:52 Oxygen Delivery Room Air 07/30/22 18:52 Medical Decision Making MDM Narrative Medical decision making narrative: Independent Historian: ? Differential Dx includes but not limited to:? cellulitis septal hematoma Medications were Reviewed:? ?? Independently Interpreted by me:? ?? External Source Review:? ? Social Situation Impacting Patients Care:? ? Shared decision Making:? evaluation was discussed and all questions were asked and answered and patient agreed on plan.?? DISCHARGE DIAGNOSIS:? ? Cellulitis of left nares DISPOSITION:? ? discharge home CONDITION AT DISCHARGE:? stable Vital Signs Vital Signs: Vital Signs Temperature 37.1 C 07/30/22 18:52 Pulse Rate 89 07/30/22 18:52 Respiratory Rate 17 07/30/22 18:52 Blood Pressure 125/64 07/30/22 18:52 Pulse Oximetry 99 07/30/22 18:52 Oxygen Delivery Room Air 07/30/22 18:52 Temperature 37.1 C 07/30/22 18:52 Pulse Rate
== END 2022-07-30 19:20 | disposition home or self-care (01) ==
LOC: CHSED 19:15
PROVIDERS: Emergency Provider Emergency Medicine; PCP Family Medicine
DX: J34.0 Abscess, furuncle and carbuncle of nose (principal)
CPT/HCPCS: 99283

== ENCOUNTER 2023-03-25 19:34 | Emergency (ER) | payer OTHER, SELFPAY ==
[2023-03-25 19:34] VITALS: BP 125/73; PULSE 81; RESP 18; TEMP 36.9; O2SAT 99
--- NOTE | 2023-03-25 19:52 | ED.SKABFB ---
HPI - Skin/Abscess/Foreign Bdy General Chief complaint: Extremity Problem,Nontraumatic Stated complaint: infection Time Seen by Provider: 03/25/23 19:52 Source: patient Mode of arrival: ambulatory Limitations: no limitations History of Present Illness HPI narrative: 32-year-old male with a history of recurrent skin infections presented to the ER with -- right ring finger nail fold infection. The patient has had 3 rounds of antibiotics without any improvement. No fever or chills. MD complaint: abscess/boil ( Right index fingernail fold abscess) Onset (ago): day(s) Tetanus up to date: yes Location: R hand ( right hand index finger) Severity: moderate Quality: aching Pain Consistency: constant Relieving factors: none Exacerbating factors: none Associated symptoms: denies other symptoms Treatments prior to arrival: other ( 3 courses of antibiotics) Related Data Home Medications Medication Instructions Recorded Confirmed lamotrigine 25 mg tablet 25 mg PO BID 09/16/20 03/24/23 Allergies Allergy/AdvReac Type Severity Reaction Status Date / Time cat dander Allergy Difficulty Verified 03/24/23 14:20 Breathing divalproex sodium Allergy Abdominal Verified 03/24/23 14:20 [From Depakote] Pain methylphenidate Allergy Jittery Verified 03/24/23 14:20 [From Ritalin] olanzapine [From Zyprexa] Allergy Unknown Verified 03/24/23 14:20 Review of Systems Review of Systems: All systems reviewed & are unremarkable except as noted in HPI and below Constitutional: Constitutional: Reports as per HPI and Reports no additional constitutional complaints Eyes: Eyes: Reports as per HPI and Reports no additional eye complaints ENT: Reports system reviewed and no additional complaints, except as documented and Reports as per HPI Cardiovascular: Cardiovascular: Reports as per HPI and Reports no additional cardiovascular complaints Respiratory: Respiratory: Reports as per HPI and Reports no additional respiratory complaints Gastrointestinal: Gastrointestinal: Reports as per HPI and Reports no additional gastrointestinal complaints Genitourinary: Genitourinary: Reports no additional male genitourinary complaints Musculoskeletal: Musculoskeletal: Reports no additional musculoskeletal complaints and Reports as per HPI Integumentary/Breasts: Comments: right ring finger ingrowing toenail with paronychia on the medial nail fold Neurologic: Reports system reviewed and no additional complaints, except as documented and Reports as per HPI Psychiatric: Psychiatric: Reports no additional psychiatric complaints and Reports as per HPI Endocrine: Endocrine: Reports no additional endocrine complaints and Reports as per HPI Hematologic/Lymphatic: Hematologic/Lymphatic: Reports no additional hematologic/lymphatic complaints and Reports as per HPI Allergic/Immunologic: Allergic/Immunologic: Reports no additional allergic/immunologic complaints and Reports as per HPI [facility] Past Medical History Medical History (Updated 03/25/23 @ 20:22 by Sergio Mclean MD) Bipolar 1 disorder Bronchitis Influenza Recurrent infection of skin Social History Social History Smoking status: Current every day smoker Exam Const: General: no acute distress Orientation/consciousness: patient oriented x3 Limitations: no limitations HENMT: Head: normal to inspection Ears: external ears normal Face/Nose/Sinus: Normal external nose present Face and sinus: normal facial exam Mouth: Yes Normal oral and palatal mucosa present Throat: posterior oropharynx normal Eyes: Conjunctivae: conjunctivae normal Pupils: Equal, round and reactive pupils present EOM: EOMs intact bilaterally Direct Ophthalmoscopy: no photophobia Neck: Neck: normal visual inspection Chest: Chest palpation & inspection: normal inspection of the chest Resp: Effort & Inspection: normal respiratory effort A
[2023-03-25] MEDS: LIDOCAINE HCL 1% LOCAL INJ 10 ML VIAL 4 ML INFILTRATE (20:15)
[2023-03-25] MEDS: NEOMYCIN/POLYMYXIN/BACITRACIN OINTMENT PACKET 1 PACKET TOPICAL (20:15)
--- NOTE | 2023-03-28 13:13 | PC.NURSE ---
PRELIMINARY ANAEROBIC CULTURE RESULTS: GRAM STAIN: FEW WHITE BLOOD CELLS SEEN. MODERATE GRAM POSITIVE COCCI IN CLUSTERS. PRELIMINARY AEROBIC CULTURE RESULTS: GROWTH OF SKIN TAVON. PER DR LEO, TO AWAIT C&S.
--- NOTE | 2023-03-30 13:10 | PC.NURSE ---
FINAL CULTURE RESULTS MRSA PT ON AUGMENTIN 875/[address] PICKARD REVIEWED NO CHANGES MADE
--- NOTE | 2023-04-03 13:06 | PC.NURSE ---
FINAL WOUND CULTURE, PATIENT DISCHARGED ON AUGMENTIN, PER WOUND CULTURE REPORT MRSA POSITIVE. PRESCRIPTION FOR BACTRIM 2 TABLETS TWICE DAILY, 5 DAYS, 20 TABLETS, PER DOCTOR OLIVIER SPARKS. PRESCRIPTION CALLED TO CASSIDY BUNCH [facility] [place] PER PATIENT REQUEST.
== END 2023-03-25 20:29 | disposition home or self-care (01) ==
PROVIDERS: Emergency Provider Internal Medicine Critical Care Medicine; PCP Nurse Practitioner Family
DX: L03.011 Cellulitis of right finger (principal); L60.0 Ingrowing nail; F17.200 Nicotine dependence, unspecified, uncomplicated
CPT/HCPCS: 10060; 87070; 87075; 87147; 87205; 99283

== ENCOUNTER 2023-07-12 03:54 | Emergency (ER) | payer MEDICARE, SELFPAY ==
[2023-07-12 03:54] VITALS: BP 111/74; PULSE 63; RESP 18; TEMP 36.6; O2SAT 99
--- NOTE | 2023-07-12 04:03 | ED.SKABFB ---
HPI - Skin/Abscess/Foreign Bdy General Chief complaint: Skin/Abscess/Foreign Body Stated complaint: Swelling in left hand Time Seen by Provider: 07/12/23 03:59 Source: patient Mode of arrival: ambulatory Limitations: no limitations History of Present Illness HPI narrative: 32 year old male presents to the Emergency Department complaining of waking up with erythematous fran to radial aspect left wrist that is slightly raised and tender. 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) Location: LUE (wrist) Related Data Allergies Allergy/AdvReac Type Severity Reaction Status Date / Time cat dander Allergy Difficulty Verified 04/06/23 13:58 Breathing divalproex sodium Allergy Abdominal Verified 04/06/23 13:58 [From Depakote] Pain methylphenidate Allergy Jittery Verified 04/06/23 13:58 [From Ritalin] olanzapine [From Zyprexa] Allergy Unknown Verified 04/06/23 13:58 Review of Systems Review of Systems: All systems reviewed & are unremarkable except as noted in HPI and below Constitutional: Constitutional: Reports as per HPI Eyes: Eyes: Reports as per HPI ENT: Reports system reviewed and no additional complaints, except as documented Cardiovascular: Cardiovascular: Reports as per HPI Respiratory: Respiratory: Reports as per HPI Gastrointestinal: Gastrointestinal: Reports as per HPI Genitourinary: Genitourinary: Reports no additional male genitourinary complaints Musculoskeletal: Musculoskeletal: Reports no additional musculoskeletal complaints Integumentary/Breasts: Skin/Breast: Reports system reviewed and no additional complaints, except as docu Neurologic: Reports system reviewed and no additional complaints, except as documented PMFSH Past Medical History Medical History Bipolar 1 disorder Bronchitis Influenza Recurrent infection of skin Social History Social History Smoking status: Current every day smoker Exam Const: General: healthy appearing Nutritional Appearance: well nourished Orientation/consciousness: patient oriented x3 Limitations: no limitations HENMT: Head: normal to inspection Ears: external ears normal Face/Nose/Sinus: Normal external nose present Face and sinus: normal facial exam Eyes: Pupils: Equal, round and reactive pupils present EOM: EOMs intact bilaterally Neck: Neck: normal visual inspection Chest: Chest palpation & inspection: normal inspection of the chest Resp: Effort & Inspection: normal respiratory effort Cardio: Rate: regular rate GI: Inspection: non-distended Skin: General skin exam: normal color Other: 1cm erythematous discoloration with slightly raised center to radial aspect right wrist with tenderness to palpation Neuro: General: patient oriented x3 Other: grossly normal Extrem: General: no clubbing, cyanosis or edema Psych: Mental Status: mental status grossly normal Course Course Emergency Course: 32 y/o male presents to the ED c/o awakening with small red area to left wrist that is tender PE: 1 cm erythematous, slightly raised center fran to left radial wrist. Tender to palpation Tx: Bactrim DS po Rx and Instructions Discharge Plan Discharge Clinical Impression: Insect bites Patient Disposition: Home, Self-Care Condition: Stable Instructions: Antibiotic Form, Insect Bite or Sting (ED) Additional Instructions: Take medication as prescribed Tylenol, Ibuprofen and Aleve as needed Follow up Primary Care Physician Patient Language: Portuguese Prescriptions: New sulfamethoxazole-trimethoprim [Bactrim DS] 800-160 mg tablet 1 tablet PO Q12H Qty: 10 0RF No Action hydroxyzine HCl 10 mg tablet 10 mg PO QID PRN (Reason: anxiety) Qty: 60 0RF lamotrigine 150 mg tablet 150 mg PO DAILY 90 Days Qty: 90 0RF Follow-up/Referrals:
[2023-07-12] MEDS: SULFAMETHOXAZOLE/TRIMETHOPRIM 800/160 MG DS TABLET 1 TAB PO (04:09)
== END 2023-07-12 04:16 | disposition home or self-care (01) ==
PROVIDERS: Emergency Provider Emergency Medicine; PCP Nurse Practitioner Family
DX: S60.862A Insect bite (nonvenomous) of left wrist, initial encounter (principal); W57.XXXA Bitten or stung by nonvenomous insect and other nonvenomous arthropods, initial encounter; F31.9 Bipolar disorder, unspecified; F17.210 Nicotine dependence, cigarettes, uncomplicated
CPT/HCPCS: 99283; A9270

== ENCOUNTER 2023-07-13 17:16 | Emergency (ER) | payer MEDICARE, SELFPAY ==
[2023-07-13 17:16] VITALS: BP 106/65; PULSE 81; RESP 20; TEMP 37.5; O2SAT 98
[2023-07-13] MEDS: SODIUM CHLORIDE 0.9% IV 1,000 ML 999 ML IV CONT (17:41)
--- NOTE | 2023-07-13 17:59 | ED.SKABFB ---
HPI - Skin/Abscess/Foreign Bdy General Chief complaint: Skin/Abscess/Foreign Body Stated complaint: left wrist infection, abt not working Source: patient Mode of arrival: ambulatory Limitations: no limitations History of Present Illness HPI narrative: this is a 32-year-old male who presents with a skin lesion to his left wrist area he was seen a few days ago was started on antibiotics but continues to have some erythema warmth and tenderness no fever chills, patient does feel dehydrated and not having any nausea vomiting no chest pain no shortness of breath no drainage from the wound site on the left wrist. complaint: rash and insect bite/sting Onset (ago): day(s) Tetanus up to date: yes Severity: mild Quality: aching Related Data Allergies Allergy/AdvReac Type Severity Reaction Status Date / Time cat dander Allergy Difficulty Verified 04/06/23 13:58 Breathing divalproex sodium Allergy Abdominal Verified 04/06/23 13:58 [From Depakote] Pain methylphenidate Allergy Jittery Verified 04/06/23 13:58 [From Ritalin] olanzapine [From Zyprexa] Allergy Unknown Verified 04/06/23 13:58 Review of Systems Review of Systems: All systems reviewed & are unremarkable except as noted in HPI and below PMFSH Past Medical History Medical History Bipolar 1 disorder Bronchitis Influenza Recurrent infection of skin Social History Social History Smoking status: Current every day smoker Exam Const: General: healthy appearing Nutritional Appearance: well nourished Orientation/consciousness: patient oriented x3 Limitations: no limitations Chest: Chest palpation & inspection: normal inspection of the chest Resp: Effort & Inspection: normal respiratory effort Auscultation: clear to auscultation bilaterally Cardio: Rate: regular rate Rhythm: regular rhythm Skin: Wounds: wounds noted Neuro: General: patient oriented x3 Course Course Emergency Course: Patient received normal saline bolus of 1L and was given 1g IV ceftriaxone and advised patient to follow-up with his primary care physician continue with his current antibiotics that was started yesterday. Vital Signs Vital signs: Vital Signs Temperature 37.5 C 07/13/23 17:16 Pulse Rate 81 07/13/23 17:16 Respiratory Rate 20 07/13/23 17:16 Blood Pressure 106/65 07/13/23 17:16 Pulse Oximetry 98 07/13/23 17:16 Oxygen Delivery Room Air 07/13/23 17:16 Temperature 37.5 C 07/13/23 17:16 Pulse Rate 81 07/13/23 17:16 Respiratory Rate 20 07/13/23 17:16 Blood Pressure 106/65 07/13/23 17:16 Pulse Oximetry 98 07/13/23 17:16 Oxygen Delivery Room Air 07/13/23 17:16 Critical Care Time Critical Care Time Critical Care Time: No Discharge Plan Discharge Clinical Impression: Skin infection, Cellulitis Patient Disposition: Home, Self-Care Condition: Stable Instructions: Antibiotic Form, Cellulitis (ED) Additional Instructions: Continue current antibiotics and can take Tylenol Motrin and stay hydrated with drinking plenty of fluids. Follow with primary care physician within 1 week further evaluation treatment Prescriptions: No Action sulfamethoxazole-trimethoprim [Bactrim DS] 800-160 mg tablet 1 tablet PO Q12H Qty: 10 0RF hydroxyzine HCl 10 mg tablet 10 mg PO QID PRN (Reason: anxiety) Qty: 60 0RF lamotrigine 150 mg tablet 150 mg PO DAILY 90 Days Qty: 90 0RF Follow-up/Referrals: Jahaira Heredia NP [Primary Care Provider] - Time of Disposition: 18:03
[2023-07-13 18:20] VITALS: BP 127/75; PULSE 76; RESP 20; TEMP 37.5; O2SAT 98
== END 2023-07-13 18:20 | disposition home or self-care (01) ==
LOC: CHSED 18:07
PROVIDERS: Emergency Provider Emergency Medicine; PCP Family Medicine
DX: L03.114 Cellulitis of left upper limb (principal); L08.9 Local infection of the skin and subcutaneous tissue, unspecified; F31.9 Bipolar disorder, unspecified
CPT/HCPCS: 96365; 99284; J0696; J7030

== ENCOUNTER 2023-07-17 17:02 | Emergency (ER) | payer MEDICARE, SELFPAY ==
[2023-07-17 17:02] VITALS: BP 116/75; PULSE 80; RESP 15; TEMP 36.4; O2SAT 99
--- NOTE | 2023-07-17 17:29 | ED.WEAKNESS ---
HPI - Weakness General Chief complaint: Weakness Stated complaint: skin infection Time Seen by Provider: 07/17/23 17:21 Source: patient Mode of arrival: ambulatory Limitations: no limitations History of Present Illness HPI Narrative: this is a 32-year-old male who presents with generalized weakness, has a lesion on his left wrist consistent with some cellulitis was treated with antibiotics and was recently discharged from hospital with antibiotics. Otherwise there is no fever chills or shortness of breath the area is located on his left wrist with erythema with no drainage. Complaint: generalized weakness Related Data Allergies Allergy/AdvReac Type Severity Reaction Status Date / Time cat dander Allergy Difficulty Verified 07/17/23 17:12 Breathing divalproex sodium Allergy Abdominal Verified 07/17/23 17:12 [From Depakote] Pain methylphenidate Allergy Jittery Unverified 07/17/23 17:12 [From Ritalin] olanzapine [From Zyprexa] Allergy Unknown Verified 07/17/23 17:12 Review of Systems Review of Systems: All systems reviewed & are unremarkable except as noted in HPI and below PMFSH Past Medical History Medical History Bipolar 1 disorder Bronchitis Influenza Recurrent infection of skin Social History Social History Smoking status: Current every day smoker Exam Const: General: healthy appearing Nutritional Appearance: well nourished Orientation/consciousness: patient oriented x3 Neck: Neck: normal visual inspection and no lymphadenopathy Chest: Chest palpation & inspection: normal inspection of the chest Resp: Effort & Inspection: normal respiratory effort Auscultation: clear to auscultation bilaterally Cardio: Rate: regular rate Rhythm: regular rhythm Skin: Wounds: wounds noted Other: Area of erythema on his left wrist area healing well Neuro: General: patient oriented x3 and moves all extremities Extrem: General: normal to inspection, no clubbing, cyanosis or edema and no pedal edema Course Course Emergency Course: patient received a L of normal saline, CBC a CMP performed and reviewed with patient, advised patient to drink plenty of fluids and continue his current antibiotics. Vital Signs Vital signs: Vital Signs Temperature 36.4 C 07/17/23 17:02 Pulse Rate 80 07/17/23 17:02 Respiratory Rate 15 07/17/23 17:02 Blood Pressure 116/75 07/17/23 17:02 Pulse Oximetry 99 07/17/23 17:02 Oxygen Delivery Room Air 07/17/23 17:02 Temperature 36.4 C 07/17/23 17:02 Pulse Rate 80 07/17/23 17:02 Respiratory Rate 15 07/17/23 17:02 Blood Pressure 116/75 07/17/23 17:02 Pulse Oximetry 99 07/17/23 17:02 Oxygen Delivery Room Air 07/17/23 17:02 Critical Care Time Critical Care Time Critical Care Time: No Discharge Plan Discharge Clinical Impression: Cellulitis Patient Disposition: Home, Self-Care Condition: Stable Instructions: Antibiotic Form Prescriptions: No Action sulfamethoxazole-trimethoprim [Bactrim DS] 800-160 mg tablet 1 tablet PO Q12H Qty: 10 0RF lamotrigine 150 mg tablet 150 mg PO DAILY 90 Days Qty: 90 0RF Follow-up/Referrals: Kj Griffin DO [Primary Care Provider] -
[2023-07-17] MEDS: SODIUM CHLORIDE 0.9% IV 1,000 ML 999 ML IV CONT (17:37)
[2023-07-17 17:39] LABS: Basophils Absolute Auto 0.05 K/mm3 (0.00-0.10); Basophils Percent Auto 0.8 % (0.0-1.0); Eosinophils Absolute Auto 0.19 K/mm3 (0.02-0.50); Hematocrit 43.7 % (40.0-54.0); Hemoglobin 14.9 g/dL (14.0-18.0); Immature Granulocyte Absolute 0.02 K/mm3 (0.00-0.00); Immature Granulocyte Percent A 0.3 % (0.0-0.0); Lymphocytes Absolute Auto 2.81 K/mm3 (1.10-4.50); Lymphocytes Percent Auto 44.7 % (18.0-42.0); Mean Corpuscular HGB Conc 34.1 g/dL (32-36); Mean Corpuscular Hemoglobin 29.1 pg (27.0-31.0); Mean Corpuscular Volume 85.4 fL (78.0-102.0); Mean Platelet Volume 9.6 fl (8.7-11.0); Monocytes Absolute Auto 0.51 K/mm3 (0.10-0.90); Monocytes Percent Auto 8.1 % (2.0-11.0); Neutrophils Absolute Auto 2.71 K/mm3 (1.70-7.20); Neutrophils Percent Auto 43.1 % (50.0-70.0); Platelet Count Result 232 K/mm3 (150-420); Red Blood Count 5.12 M/mm3 (4.70-6.10); Red Cell Distribution Width 12.4 % (11.6-14.4); White Blood Count 6.3 K/mm3 (4.8-10.8)
[2023-07-17 17:53] LABS: Alanine Aminotransferase 23 U/L (16-63); Albumin Level 3.5 g/dL (3.4-5.0); Alkaline Phosphatase 77 U/L (46-116); Anion Gap 9 mmol/L (4-12); Aspartate Amino Transferase 18 U/L (15-37); Bilirubin,Total 0.3 mg/dL (0.00-1.00); Blood Urea Nitrogen 13 mg/dL (7-18); Calcium 8.8 mg/dL (8.5-10.1); Carbon Dioxide 29 mmol/L (21-32); Chloride 99 mmol/L (98-108); Estimated CRCL calculation 84 ml/min; Estimated Glomerular Filt Rate > 60; Glucose 98 mg/dL (70-99); Osmolality Calculated 284 mOsm/kg (285-295); Potassium 3.9 mmol/L (3.5-5.1); Sodium 137 mmol/L (136-145)
[2023-07-17 18:06] VITALS: BP 125/77; PULSE 85; RESP 16; TEMP 36.6; O2SAT 100
== END 2023-07-17 18:06 | disposition home or self-care (01) ==
PROVIDERS: Emergency Provider Emergency Medicine; PCP Family Medicine
DX: L03.114 Cellulitis of left upper limb (principal); F31.9 Bipolar disorder, unspecified; F17.200 Nicotine dependence, unspecified, uncomplicated
CPT/HCPCS: 36415; 80053; 85025; 96360; 99283; J7030

== ENCOUNTER 2024-02-21 14:58 | Emergency (ER) | payer MEDICARE, SELFPAY ==
[2024-02-21 15:03] VITALS: BP 124/83; PULSE 83; RESP 18; TEMP 36.7; O2SAT 98
--- NOTE | 2024-02-21 15:07 | ED.URI ---
HPI - URI/Sore Throat General Chief Complaint: Upper Respiratory Infection Stated Complaint: SICK Time Seen by Provider: 02/21/24 15:06 Source: patient Mode of arrival: ambulatory Limitations: no limitations History of Present Illness HPI Narrative: Patient is a 33-year-old male with generalized malaise and fatigue with a headache and a sore throat. Patient has been sick since this morning with acute onset. COVID exposure. no stiff neck or pain of the spine. No specific fever and chills. MD elicited complaint: sore throat Pertinent past history: other ( None) Onset (ago): day(s) (1) Consistency: constant Severity: moderate Pain scale (0-10): 5 Able to tolerate fluids by mouth: Yes Exacerbating factors: nothing Relieving factors: nothing Context: sick contacts Associated symptoms: myalgias, headache and sore throat Treatments prior to arrival: none Related Data Allergies Allergy/AdvReac Type Severity Reaction Status Date / Time cat dander Allergy Difficulty Verified 02/21/24 15:03 Breathing divalproex sodium (From Allergy Abdominal Verified 02/21/24 15:03 Depakote) Pain methylphenidate (From Allergy Jittery Verified 02/21/24 15:03 Ritalin) olanzapine (From Zyprexa) Allergy Unknown Verified 02/21/24 15:03 Review of Systems Review of Systems: All systems reviewed & are unremarkable except as noted in HPI and below Constitutional: Constitutional: Reports no additional constitutional complaints Eyes: Eyes: Reports no additional eye complaints ENT: Reports system reviewed and no additional complaints, except as documented Cardiovascular: Cardiovascular: Reports no additional cardiovascular complaints Respiratory: Respiratory: Reports no additional respiratory complaints Gastrointestinal: Gastrointestinal: Reports no additional gastrointestinal complaints Genitourinary: Genitourinary: Reports no additional male genitourinary complaints Musculoskeletal: Musculoskeletal: Reports no additional musculoskeletal complaints Integumentary/Breasts: Skin/Breast: Reports system reviewed and no additional complaints, except as docu Neurologic: Reports system reviewed and no additional complaints, except as documented Psychiatric: Psychiatric: Reports no additional psychiatric complaints Endocrine: Endocrine: Reports no additional endocrine complaints Hematologic/Lymphatic: Hematologic/Lymphatic: Reports no additional hematologic/lymphatic complaints Allergic/Immunologic: Allergic/Immunologic: Reports no additional allergic/immunologic complaints PMFSH Past Medical History Medical History Recurrent infection of skin Bronchitis Influenza Bipolar 1 disorder Social History Social History Smoking status: Current every day smoker Exam Const: General: healthy appearing Nutritional Appearance: well nourished Orientation/consciousness: patient oriented x3 Limitations: no limitations Other: Patient looks tired HENMT: Head: normal to inspection Ears: external ears normal Face/Nose/Sinus: Normal external nose present Face and sinus: normal facial exam Mouth: Yes Normal oral and palatal mucosa present Teeth and gingiva: dentition normal Throat: uvula midline Other: posterior oropharynx shows 2+ tonsillar hypertrophy with white pus on the right greater than left tonsil Eyes: Conjunctivae: conjunctivae normal Pupils: Equal, round and reactive pupils present EOM: EOMs intact bilaterally Direct Ophthalmoscopy: no photophobia Neck: Neck: normal visual inspection Chest: Chest palpation & inspection: normal inspection of the chest Resp: Effort & Inspection: normal respiratory effort and not labored Auscultation: clear to auscultation bilaterally and no crackles Cardio: Rate: regular rate Rhythm: regular rhythm Heart sounds: no murmurs GI: Inspection: non-distended GI Palp: Yes Soft to palpation and No Tenderness to palpation present (GI) Auscultation: normal bowel sounds : General: Yes bladder normal to palpation Back/Spine/Pelvis: Back: no CVA tenderness Skin: General skin exam: normal color Rashes: no rashes Wounds: no wounds Neuro: General: patient oriented x3, moves all extremities, no meningeal signs, no focal motor deficits and CN's II-XI intact bilaterally Cranial nerves: Yes Nystagmus not present Speech: normal speech Gait exam (Neuro): Normal gait present Extrem: General: normal to inspection Psych: Mental Status: mental status grossly normal Affect: normal affect Attitude: cooperative Course Vital Signs Vital signs: Vital Signs Temperature 36.7 C 02/21/24 15:03 Pulse Rate 83 02/21/24 15:03 Respiratory Rate 18 02/21/24 15:03 Blood Pressure 124/83 02/21/24 15:03 Pulse Oximetry 98 02/21/24 15:03 Oxygen Delivery Room Air 02/21/24 15:03 Temperature 36.7 C 02/21/24 15:03 Pulse Rate 83 02/21/24 15:03 Respiratory Rate 18 02/21/24 15:03 Blood Pressure 124/83 02/21/24 15:03 Pulse Oximetry 98 02/21/24 15:03 Oxygen Delivery Room Air 02/21/24 15:03 MDM - URI/Sore Throat MDM Narrative Medical decision making narrative: patient is a 33-year-old male with malaise and fatigue and a sore throat with a headache. We will do COVID panel testing. Panel was negative. We will do CBC and a BMP at this time with a lactic acid. No signs of meningitis at this time. Laboratory workup was stable. Likely the small elevation the WBC was from the strep type infection seen on exam. I did not do a strep test as it would not change my course of action which is to treat based on examination. Lab Data Attestation: I reviewed the patient's lab results. 02/21/24 16:21 02/21/24 16:21 Labs: Lab Results 02/21/24 02/21/24 02/21/24 Range/Units 15:07 16:21 16:23 WBC 11.4 H (4.8-10.8) K/mm3 RBC 5.64 (4.70-6.10) M/mm3 Hgb 16.0 (14.0-18.0) g/dL Hct 46.3 (40.0-54.0) % MCV 82.1 (78.0-102.0) fL MCH 28.4 (27.0-31.0) pg MCHC 34.6 (32-36) g/dL RDW 11.9 (11.6-14.4) % Plt Count 222 (150-420) K/mm3 MPV 9.1 (8.7-11.0) fl Immature Gran % (Auto) 0.3 H (0.0-0.0) % Neut % (Auto) 71.7 H (50.0-70.0) % Lymph % (Auto) 17.7 L (18.0-42.0) % [place] % (Auto) 8.7 (2.0-11.0) % Eos % (Auto) 1.2 (1.0-6.0) % Baso % (Auto) 0.4 (0.0-1.0) % Lymph # (Auto) 2.01 (1.10-4.50) K/mm3 [place] # (Auto) 0.99 H (0.10-0.90) K/mm3 Eos # (Auto) 0.14 (0.02-0.50) K/mm3 Baso # (Auto) 0.04 (0.00-0.10) K/mm3 Abs Immat Gran (auto) 0.03 H (0.00-0.00) K/mm3 Absolute Neuts (auto) 8.17 H (1.70-7.20) K/mm3 Absolute Nucleated RBC 0.00 (0.00-0.00) K/mm3 Nucleated RBC % 0.0 (0-0.0) % Sodium 137 (136-145) mmol/L Potassium 4.2 (3.5-5.1) mmol/L Chloride 100 (98-108) mmol/L Carbon Dioxide 29 (21-32) mmol/L Anion Gap 8 (4-12) mmol/L BUN 13 (7-18) mg/dL Creatinine 1.06 (0.70-1.30) mg/dL Estim Creat Clear Calc 94 ml/min Estimated GFR > 60 (59 - ) Glucose 93 (70-99) mg/dL Calculated Osmolality 284 L (285-295) mOsm/kg Lactic Acid 0.5 (0.4-2.0) mmol/L Calcium 9.4 (8.5-10.1) mg/dL Influenza A (RT-PCR) Negative (Negative) Influenza B (RT-PCR) Negative (Negative) RSV (RT-PCR) Negative (Negative) SARS-CoV-2 RNA (RT-PCR) Negative (Negative) Discharge Plan Discharge Clinical Impression: Pharyngitis Qualifiers: Pharyngitis/tonsillitis etiology: other specified organisms Qualified Code(s): J02.8 - Acute pharyngitis due to other specified organisms Patient Disposition: Home, Self-Care Condition: Stable Instructions: Antibiotic Form, Pharyngitis (ED) Additional Instructions: Please follow-up with the primary doctor in the next week. Come back to the emergency room with worse symptoms such as worsening headache or any other neurological changes. Patient Language: Georgian Prescriptions: New amoxicillin-pot clavulanate 875-125 mg tablet 1 tablet PO BID 10 Days Qty: 20 0RF No Action lamotrigine 150 mg tablet 150 mg PO DAILY 90 Days Qty: 90 1RF Follow-up/Referrals: Jahaira Heredia [employer] [Primary Care Provider] - Time of Disposition: 17:03
--- NOTE | 2024-02-21 15:09 | PC.NURSE ---
Covid culture sent to lab
[2024-02-21 15:48] LABS: SARS-CoV-2 RNA PCR Negative (Negative)
[2024-02-21] MEDS: ACETAMINOPHEN 500 MG TABLET 1000 MG PO (15:56)
[2024-02-21 15:58] LABS: Influenza A QL RT-PCR Negative (Negative); Influenza B QL RT-PCR Negative (Negative); RSV RNA, RT-PCR Negative (Negative)
[2024-02-21 16:28] LABS: Basophils Absolute Auto 0.04 K/mm3 (0.00-0.10); Basophils Percent Auto 0.4 % (0.0-1.0); Eosinophils Absolute Auto 0.14 K/mm3 (0.02-0.50); Eosinophils Percent Auto 1.2 % (1.0-6.0); Hematocrit 46.3 % (40.0-54.0); Immature Granulocyte Absolute 0.03 K/mm3 (0.00-0.00); Immature Granulocyte Percent A 0.3 % (0.0-0.0); Lymphocytes Absolute Auto 2.01 K/mm3 (1.10-4.50); Lymphocytes Percent Auto 17.7 % (18.0-42.0); Mean Corpuscular HGB Conc 34.6 g/dL (32-36); Mean Corpuscular Hemoglobin 28.4 pg (27.0-31.0); Mean Corpuscular Volume 82.1 fL (78.0-102.0); Mean Platelet Volume 9.1 fl (8.7-11.0); Monocytes Absolute Auto 0.99 K/mm3 (0.10-0.90); Monocytes Percent Auto 8.7 % (2.0-11.0); Neutrophils Absolute Auto 8.17 K/mm3 (1.70-7.20); Neutrophils Percent Auto 71.7 % (50.0-70.0); Platelet Count Result 222 K/mm3 (150-420); Red Blood Count 5.64 M/mm3 (4.70-6.10); Red Cell Distribution Width 11.9 % (11.6-14.4); White Blood Count 11.4 K/mm3 (4.8-10.8)
[2024-02-21 16:35] LABS: Anion Gap 8 mmol/L (4-12); Blood Urea Nitrogen 13 mg/dL (7-18); Calcium 9.4 mg/dL (8.5-10.1); Carbon Dioxide 29 mmol/L (21-32); Chloride 100 mmol/L (98-108); Estimated CRCL calculation 94 ml/min; Estimated Glomerular Filt Rate > 60; Glucose 93 mg/dL (70-99); Osmolality Calculated 284 mOsm/kg (285-295); Potassium 4.2 mmol/L (3.5-5.1); Sodium 137 mmol/L (136-145)
[2024-02-21 16:44] LABS: Lactic Acid Reflex 0.5 mmol/L (0.4-2.0)
[2024-02-21] MEDS: AMOXICILLIN/CLAVULANATE K 875-125 MG TAB 1 TABLET PO (17:09)
[2024-02-21 17:13] VITALS: BP 139/80; PULSE 72; RESP 17; TEMP 36.8; O2SAT 98
--- OUTSIDE RECORDS SUMMARY | 2024-02-28 13:27 | XMS_ITS | Encounter Summary ---
Author Organization [facility] Address [facility] [place], [place] [id number] [place] [id number] Care Team Providers Care Lpn Cma Name Role Phone Hugo Robbins MD Primary Care Provider [phone] Qing Rizzo MD Primary Care Provider [phone] Reason for Referral * Imaging (Urgent) - New Request Specialty Diagnoses / Procedures Referred By Amrik aguirre Referred To Contact RADIOLOGY Procedures CT FOREARM LT W CON Alexi Vergara DO 1 [place] [address] Phone: tel: fax: Referral ID Status Reason Start Date Expiration Date V isits Requested Visits Authorized [id number] New Request 07/14/2023 07/13/2024 1 1 Reason for Visit * Reason Comments Insect Bite Chest Pain * Auth/Cert (Routine) Specialty Diagnoses / Procedures Referred By Contslim aguirre Referred To Contact Diagnoses Cellulitis of left upper extremity Cellulitis Procedures NONE Balwinder Joyce MD [address] [place] [address] Phone: tel: fax: Referral ID Status Reason Start Date Expiration Date Visits Re quested Visits Authorized [id number] 1 1 Encounter Details Date Type Department Care Team (Late st Contact Info) Description 07/14/2023 12:13 PM CDT - 07/15/2023 12:00 PM CDT Emergency [facility] [address] [place] [address] Alexi Vergara, DO 1 [place] [address] Brianna Dahl MD [address] [place] [phone] Insect Bite; Chest Pain Discharge Disposition: Home or Self Care (Routine Discharge) Social History Tobacco Use Types Packs/Day Years Used Date Smoking Tobacco: Every Day Cigarettes Smokeless Tobacco: Never Alcohol Use Standard Drinks/Week Comments Never 0 (1 standard drink = 0.6 oz pur e alcohol) [facility] Utilities Answer Date Recorded In the past 12 months has e [employer] gas, oil, or water [employer] threatened to shut off services in your home? No 07/14/2023 Humiliation, Afraid, Rape, and Kick questionnair e Answer Date Recorded Within the last year, have y ou been afraid of your partner or ex-partner? No 07/14/2023 Within the last year, have y ou been humiliated or emotionally abused in other ways by your partner or ex-partner? No Within the last year, have y ou been kicked, hit, slapped, or otherwise physically hurt by your partner or ex-partner? No 07/14/2023 Within the last year, have y ou been raped or forced to have any kind of sexual activity by your partner or ex-partner? No 07/14/2023 AUDIT-C Answer Date Recorded Q1: How often do you have a drink containing alc ohol? Never 07/17/2020 Average Number of Drinks Not on file 021 Frequency of Binge Drinking Not on file 06/21 Overall Financial Resource Strain (CARDIA) Answe r Date Recorded How hard is it for you to pa y for the very basics like food, housing, medical care, and heating? Not hard at all 07/14/2023 Hunger Vital Sign Answer Date Recorded Within the past 12 months, y ou worried that your food would run out before you got the money to buy more. Never true 07/14/19 24 Within the past 12 months, t he food you bought just didn't last and you didn't have money to get more. Never true 07/14/2023 PRAPARE - Transportation Answer Date Re corded In the past 12 months, has l ack of transportation kept you from medical appointments or from getting medications? No 06/21 In the past 12 months, has l ack of transportation kept you from meetings, work, or from getting things needed for daily living? No 07/14/2023 Housing Stability Vital Sign Answer Lamberto e Recorded In the last 12 months, was t here a time when you were not able to pay the mortgage or rent on time? No 07/14/2023 In the past 12 months, how m any times have you moved where you were living? 1 07/14/2023 At any time in the past 12 m onths, were you homeless or living in a fci (including now)? No 07/14/2023 Sex and Gender Information Value Date Recorded Sex Assigned at Not on file Legal Sex Male 4:56 PM CDT Gender Identity Not on file Sexual Orientation Not on file documented as of this encounter Last Filed Vital Signs Vital Sign Reading Time Taken Comments Blood Pressure 110/51 07/15/2023 4:28 AM CDT Pulse 49 07/15/2023 4:28 AM CDT Temperature 35.3 ??C (95.5 ??F) 07/15/2023 4:28 AM CD T Respiratory Rate 16 07/15/2023 4:28 AM CDT Oxygen Saturation 100% 07/15/2023 4:28 AM CDT Inhaled Oxygen Concentration - - Weight 71.4 kg (157 lb 6.4 oz) 07/14/2023 5:29 P M CDT Height 180.3 cm (5' 11 ) 07/14/2023 5:29 PM CDT Body Mass Index 21.95 07/14/2023 5:29 PM CDT documented in this encounter Functional Status * Question Answer Date of Assessment Author Status Do you have serious difficulty walking or climbing stairs? No 07/14/2023 5:27 PM CDT Marisel Harris RN Act kathy * Question Answer Date of Assessment Author Status Do you have difficulty dressing or bathing? No 07/14/2023 5:27 PM CDT Marisel Harris RN Active Because of a physical, mental, or emotional condition, do you have difficulty doing errands alone such as visiting a doctor's office or shopping? No 07/14/2023 5:27 PM CDT Marisel Harris RN Acti ve * Are you deaf or do you have serious difficulty hearing Answer Date of Assessment Author Status No 07/14/2023 5:27 PM CDT Marisel Harris RN Active * Are you blind or do you have serious difficulty seeing, even when wearing glasses? Answer Date of Assessment Author Status No 07/14/2023 5:27 PM CDT Marisel Harris RN Active * Do you have serious difficulty walking or climbing stairs? Answer Date of Assessment Author Status No 07/14/2023 5:27 PM DHEERAJT Marisel Harris RN Active * Do you have difficulty dressing or bathing? Answer Date of Assessment Author Status No 07/14/2023 5:27 PM Marisel Flood RN Active * Because of a physical, mental, or emotional condition, do you have difficulty doing errands alone such as visiting a doctor's office or shopping? Answer Date of Assessment Author Status No 07/14/2023 5:27 PM Marisel Flood RN Active documented as of this encounter Mental Status * Question Answer Entry Date Author Status Because of a physical, mental, or emotional condition, do you have serious difficulty concentrating, remembering, or making decisions? No 07/14/2023 5:27 PM CDT Marisel Harris RN Active * Because of a physical, mental, or emotional condition, do you have serious difficulty concentrating, remembering, or making decisions? Answer Entry Date Author Status No 07/14/2023 5:27 PM CDMarisel Richard RN Active documented in this encounter Discharge Summaries * Martha Chan, CHRISTIAN-BC - 07/15/2023 11:44 AM CDT Images from the original note were not included. Physician Discharge Summary Patient ID: Tim Hdez. male. 1990. Admit date: 07/14/2023 12:13 PM Discharge date and time: 07/15/23 Admitting Physician: Balwinder Joyce MD Primary Care Physician: QING RIZZO MD Attending Provider: Brianna Dahl MD Discharge Physician: Dr. Dahl/MARTHA CAHN ANP-BC Primary Diagnoses: Cellulitis Secondary Diagnosis: Bipolar Admission Condition: good Discharged Condition: Good Code Status: Full Code Indication for Admission: Chief Complaint Patient presents with Insect Bite Chest Pain Reason for hospitalization: Cellulitis left wrist Hospital Course: Tim Hdez was admitted on 07/14/2023 12:13 PM for complaints of left wrist pain and redness.He was diagnosed with cellulitis. He denied any trauma or insect bite that he knew of. Please see H&P for full detail Consults: none Significant Diagnostic Studies: Radiology Results (Last 30 days) 07/14/[address] FOREARM LT W CON Final result Impression: IMPRESSION: Infiltrative edema in wrist/forearm Bulging 3 x 3 x 1.7 cm focal edema with faint central low density in the radial aspect of wrist, seen on series 5 image 31, can indicate a growing phlegmon which has not yet turned into an drainable abscess. No osteomyelitis No fracture No radiodense foreign body Ordered By: ALEXI VERGARA Interpreted By: Chavo Ma MD, 07/14/2023 1:36 PM Vital Signs at Discharge: Filed Vitals: 07/14/23 1535 07/14/23 1729 07/14/23 1925 07/15/23 0428 BP: 119/64 109/56 110/51 Pulse: 77 (!) 58 80 (!) 49 Resp: 9 16 16 16 Temp: 97.5 ??F (36.4 ??C) 97.7 ??F (36.5 ??C) 95.5 ??F (35.3 ??C) TempSrc: Tympanic Tympanic Tympanic SpO2: 100% 100% 99% 100% Weight: 71.4 kg (157 lb 6.4 oz) Height: 1.803 m (5' 11 ) Last labs past 24 hours: Recent Results (from the past 24 hour(s)) CULTURE, BACTERIA, BLOOD Collection Time: 07/14/23 12:46 PM Specimen: BLOOD Result Value Ref Range SPEC DESCRIPTION BLOOD SPECIAL REQUESTS STERIPATH NOT USED CULTURE RESULT NO GROWTH 1 DAY CBC W/DIFF AUTOMATED Collection Time: 07/14/23 12:46 PM Result Value Ref Range WBC 12.73 (H) 4.00 - 10.80 x10'3/uL RBC 4.57 4.50 - 6.10 x10'6/uL HGB 13.2 13.0 - 18.0 G/DL HCT 38.7 37.0 - 52.0 % MCV 84.7 78.0 - 100.0 FL MCH 28.9 27.0 - 31.0 PG MCHC 34.1 33.0 - 36.0 G/DL RDW 12.6 11.5 - 14.5 % PLT 180 150 - 350 x10'3/uL MPV 10.0 7.4 - 10.4 FL CBC COMMENT NORMAL REFERENCE RANGE NOT ESTABLISHED FOR THE PROPORTIONAL LEUKOCYTE DIFFERENTIAL. NEUTROPHILS 78.3 % LYMPHOCYTES 11.5 % MONOCYTES 9.1 % EOSINOPHILS 0.5 % BASOPHILS 0.4 % IMMATURE GRANS 0.2 % NRBC 0.0 % ABS. NEUTROPHILS 9.96 (H) 1.60 - 8.30 x10'3/uL ABS. LYMPHOCYTES 1.47 0.80 - 4.70 x10'3/uL ABS. MONOCYTES 1.16 0.00 - 1.50 x10'3/uL ABS. EOSINOPHILS 0.06 0.00 - 0.40 x10'3/uL ABS. BASOPHILS 0.05 0.00 - 0.20 x10'3/uL ABS. IMMATURE GRANULOCYTES 0.03 0.00 - 0.03 x10'3/uL ABS. NUCLEATED RBC'S 0.00 0.00 x10'3/uL COMPREHENSIVE METABOLIC PANEL Collection Time: 07/14/23 12:46 PM Result Value Ref Range SODIUM S/P/B 135 (L) 136 - 145 MMOL/L POTASSIUM S/P/B 4.2 3.5 - 5.1 MMOL/L CHLORIDE S/P/B 103 98 - 107 MMOL/L CO2 25.8 21.0 - 32.0 MMOL/L GLUCOSE 99 70 - 99 MG/DL BUN 12 6 - 24 MG/DL CREATININE S/P/B 1.06 0.70 - 1.30 MG/DL CALCIUM S/P/B 8.2 (L) 8.4 - 10.5 MG/DL BILIRUBIN TOTAL S/P/B 0.7 0.2 - 1.0 MG/DL ALKALINE PHOSPHATASE S/P/B 69 45 - 115 U/L AST 13 (L) 15 - 37 U/L ALT 13 (L) 16 - 63 U/L TOTAL PROTEIN S/P/B 6.2 (L) 6.4 - 8.2 G/DL ALBUMIN S/P/B 3.3 (L) 3.4 - 5.0 G/DL ANION GAP 6.2 5.0 - 15.0 MMOL/L OSMOLALITY (CALC) 280 MOSM/KG GFR ESTIMATE >90 >89 ML/MIN/1.73 M2 GFR NOTES GFR REFERENCES: LACTIC ACID W REFLEX (SEPSIS) Collection Time: 07/14/23 12:46 PM Result Value Ref Range LACTIC ACID VENOUS 0.5 0.4 - 2.0 MMOL/L TROPONIN, QUANT Collection Time: 07/14/23 12:46 PM Result Value Ref Range TROPONIN I HIGH SENSITIVITY 4 0 - 76 ng/L MAGNESIUM Collection Time: 07/14/23 12:46 PM Result Value Ref Range MAGNESIUM 1.9 1.8 - 2.4 MG/DL CULTURE, BACTERIA, BLOOD Collection Time: 07/14/23 12:52 PM Specimen: BLOOD Result Value Ref Range SPEC DESCRIPTION BLOOD SPECIAL REQUESTS STERIPATH NOT USED CULTURE RESULT NO GROWTH 1 DAY TROPONIN, QUANT Collection Time: 07/14/23 2:32 PM Result Value Ref Range TROPONIN I HIGH SENSITIVITY 4 0 - 76 ng/L CBC W/DIFF AUTOMATED Collection Time: 07/15/23 4:15 AM Result Value Ref Range WBC 10.78 4.00 - 10.80 x10'3/uL RBC 4.99 4.50 - 6.10 x10'6/uL HGB 14.3 13.0 - 18.0 G/DL HCT 42.3 37.0 - 52.0 % MCV 84.8 78.0 - 100.0 FL MCH 28.7 27.0 - 31.0 PG MCHC 33.8 33.0 - 36.0 G/DL RDW 12.8 11.5 - 14.5 % PLT 204 150 - 350 x10'3/uL MPV 10.2 7.4 - 10.4 FL CBC COMMENT NORMAL REFERENCE RANGE NOT ESTABLISHED FOR THE PROPORTIONAL LEUKOCYTE DIFFERENTIAL. NEUTROPHILS 66.0 % LYMPHOCYTES 20.1 % MONOCYTES 10.9 % EOSINOPHILS 2.0 % BASOPHILS 0.6 % IMMATURE GRANS 0.4 % NRBC 0.0 % ABS. NEUTROPHILS 7.12 1.60 - 8.30 x10'3/uL ABS. LYMPHOCYTES 2.17 0.80 - 4.70 x10'3/uL ABS. MONOCYTES 1.17 0.00 - 1.50 x10'3/uL ABS. EOSINOPHILS 0.22 0.00 - 0.40 x10'3/uL ABS. BASOPHILS 0.06 0.00 - 0.20 x10'3/uL ABS. IMMATURE GRANULOCYTES 0.04 (H) 0.00 - 0.03 x10'3/uL ABS. NUCLEATED RBC'S 0.00 0.00 x10'3/uL COMPREHENSIVE METABOLIC PANEL Collection Time: 07/15/23 4:15 AM Result Value Ref Range SODIUM S/P/B 135 (L) 136 - 145 MMOL/L POTASSIUM S/P/B 4.3 3.5 - 5.1 MMOL/L CHLORIDE S/P/B 105 98 - 107 MMOL/L CO2 27.1 21.0 - 32.0 MMOL/L GLUCOSE 98 70 - 99 MG/DL BUN 14 6 - 24 MG/DL CREATININE S/P/B 0.92 0.70 - 1.30 MG/DL CALCIUM S/P/B 8.3 (L) 8.4 - 10.5 MG/DL BILIRUBIN TOTAL S/P/B 0.4 0.2 - 1.0 MG/DL ALKALINE PHOSPHATASE S/P/B 88 45 - 115 U/L AST 14 (L) 15 - 37 U/L ALT 15 (L) 16 - 63 U/L TOTAL PROTEIN S/P/B 6.3 (L) 6.4 - 8.2 G/DL ALBUMIN S/P/B 3.1 (L) 3.4 - 5.0 G/DL ANION GAP 2.9 (L) 5.0 - 15.0 MMOL/L OSMOLALITY (CALC) 280 MOSM/KG GFR ESTIMATE >90 >89 ML/MIN/1.73 M2 GFR NOTES GFR REFERENCES: Discharge Medications: Medication List START taking these medications Morning Afternoon Evening Bedtime As Needed sulfamethoxazole-trimethoprim 800-160 MG tablet Commonly known as: BACTRIM DS Take 2 tablets by mouth 2 (two) times daily for 5 days. Signed by: Martha Chan CONTINUE taking these medications Morning Afternoon Evening Bedtime As Needed lamoTRIgine 150 MG tablet Commonly known as: laMICtal Take 1 tablet (150 mg total) by mouth daily. Last time this was given: 150 mg on July 15, 2023 8:28 AM Last time this was given: July 15, 2023 8:28 AM Medications Discontinued during this hospitalization: Disposition: discharged to home Durable Medical Equipment Needed: None Patient Instructions: Activity: activity as tolerated Diet: regular diet Wound Care: keep wound clean and dry Follow-up appointments: Follow-up with PCP on 07/18/2023, call for appointment Findings that require further workup: Resolution of cellulitis Followup Lab Orders: None Time Spent on Discharge Less than 30 minutes Signed: JORDEN ART Cosigned by Brianna Dahl MD at 07/19/2023 4:19 PM CDT Associated attestation - Brianna Dahl MD - 07/19/2023 4:19 PM CDT I, Brianna Dahl MD personally interviewed and examined the patient, reviewed the hospital tests. I reviewed with the Nurse Practitioner the findings, plan of care and orders. I agree with planof care unless otherwise noted. Time spent on encounter and care coordination: 47 minutes documented in this encounter Medications at Time of Discharge lamoTRIgine (LAMICTAL) 150 MG tablet Take 1 tablet (150 mg total) by mouth daily. sulfamethoxazole- trimethoprim (BACTRIM DS) 800-160 MG tablet Take 2 tablets by mouth 2 (two) times daily for 5 days. 20 tablet 07/15/2023 07/20/2023 documented as of this encounter Progress Notes * Celine Chacko RN - 07/15/2023 11:26 AM CDT Problem: Discharge Planning Infection Goal: Knowledge of discharge instructions Infection 07/15/2023 1126 by Celine Chacko RN Outcome: Adequate for Discharge 07/15/2023 0925 by Celine Chacko RN Outcome: Progressing Note: No discharge orders yet. Problem: Infection Goal: Absence of infection signs and symptoms Infection/Isolation 07/15/2023 1126 by Celine Chacko RN Outcome: Adequate for Discharge 07/15/2023 0925 by Celine Chacko RN Outcome: Progressing Note: Pt wound remains intact and treated with IV antibiotics Goal: Knowledge of infection control procedures Infection Outcome: Adequate for Discharge * Celine Chacko RN - 07/15/2023 9:26 AM CDT Problem: Discharge Planning Infection Goal: Knowledge of discharge instructions Infection Outcome: Progressing Note: No discharge orders yet. Problem: Infection Goal: Absence of infection signs and symptoms Infection/Isolation Outcome: Progressing Note: Pt wound remains intact and treated with IV antibiotics * Raeann Travis RN - 07/14/2023 9:06 PM CDT Problem: Discharge Planning Infection Goal: Knowledge of discharge instructions Infection Outcome: Progressing Note: Patient aware of discharge plan at this time. Problem: Infection Goal: Absence of infection signs and symptoms Infection/Isolation Outcome: Progressing Note: Left wrist still shows signs of infection. Goal: Knowledge of infection control procedures Infection Outcome: Progressing Note: Patient is aware of infection process. documented in this encounter H&P Notes * CHRISTIAN Art-BC - 07/15/2023 11:28 AM CDT Images from the original note were not included. Admission History and Physical History Primary Care Provider: QING RIZZO MD Admitting Provider: Balwinder Joyce MD Attending Provider: Brianna Dahl MD Admission date: 07/14/2023 12:13 PM Tim Hdez is a 32-year-old male with a history of bipolar who presented to the ER with complaints of left wrist swelling. 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 He went to the ER and received Bactrim at [facility] with no improvement after 2 days he returned to the ER and received IV antibiotic x 1 and discharged. Yesterday while at work the redness and induration was noted to be worse with further discomfort and redness traveling up his left arm. He left work not feeling well and having some dizziness and came to local ER for further care. He was given IV Rocephin x 1 in ER and admitted. Pain is improved. He reports redness has improved since yesterday. Past Medical History: Diagnosis Date Bipolar 1 disorder ([facility]) History reviewed. No pertinent surgical history. Social History Tobacco Use Smoking status: Every Day Current packs/day: 1.00 Types: Cigarettes Smokeless tobacco: Never Vaping Use Vaping status: Never Used Substance Use Topics Alcohol use: Never Drug use: Never Family History Problem Relation Name Age of Onset Seizures Mother Crohns Disease Mother Psoriasis Father Psoriasis Sister No Known Problems Brother Prior to Admission medications Medication Sig Start Date End Date Taking? Authorizing Provider lamoTRIgine (LAMICTAL) 150 MG tablet Take 1 tablet (150 mg total) by mouth daily. Yes Doc [facility] lamoTRIgine 150 mg Oral Daily ibuprofen, morphine, ondansetron Allergies Allergen Reactions Depakote [Valproic Acid] Nausea and Vomiting Ritalin [Methylphenidate] Unknown Zyprexa [Olanzapine] Unknown ROS 10 point ROS negative except otherwise specified in HPI Physical Exam Filed Vitals: 07/14/23 1535 07/14/23 1729 07/14/23 1925 07/15/23 0428 BP: 119/64 109/56 110/51 Pulse: 77 (!) 58 80 (!) 49 Resp: 9 16 16 16 Temp: 97.5 ??F (36.4 ??C) 97.7 ??F (36.5 ??C) 95.5 ??F (35.3 ??C) TempSrc: Tympanic Tympanic Tympanic SpO2: 100% 100% 99% 100% Weight: 71.4 kg (157 lb 6.4 oz) Height: 1.803 m (5' 11 ) Physical Exam Vitals reviewed. Constitutional: General: He is not in acute distress. Appearance: He is well-developed. HENT: Head: Normocephalic and atraumatic. Nose: Nose normal. Eyes: General: Left eye: No discharge. Pupils: Pupils are equal, round, and reactive to light. Cardiovascular: Rate and Rhythm: Normal rate and regular rhythm. Pulses: Intact distal pulses. Posterior tibial pulses are 1+ on the right side and 1+ on the left side. Heart sounds: Normal heart sounds, S1 normal and S2 normal. No murmur heard. Pulmonary: Effort: Pulmonary effort is normal. No respiratory distress. Breath sounds: No wheezing. Abdominal: General: Bowel sounds are normal. Palpations: Abdomen is soft. Musculoskeletal: General: Normal range of motion. Cervical back: Normal range of motion. Skin: General: Skin is warm and dry. Comments: Left wrist red with large induration with a 3 x 3 cm raised area with white center. Neurological: Mental Status: He is alert and oriented to person, place, and time. Psychiatric: Mood and Affect: Mood normal. Recent Labs Lab 07/14/23 1246 07/15/23 0415 WBC 12.73* 10.78 RBC 4.57 4.99 HGB 13.2 14.3 HCT 38.7 42.3 MCV 84.7 84.8 MCH 28.9 28.7 MCHC 34.1 33.8 PLT 180 204 RDW 12.6 12.8 MPV 10.0 10.2 PERNEU 78.3 66.0 PERLYM 11.5 20.1 PERMON 9.1 10.9 PEREOS 0.5 2.0 PERBASO 0.4 0.6 NEUC 9.96* 7.12 LYMC 1.47 2.17 MONOC 1.16 1.17 EOSC 0.06 0.22 BASOC 0.05 0.06 Recent Labs Lab 07/14/23 1246 07/15/23 0415 NA 135* 135* K 4.2 4.3 CL 103 105 CO2 25.8 27.1 AGAP 6.2 2.9* BUN 12 14 CR 1.06 0.92 GLU 99 98 CA 8.2* 8.3* TP 6.2* 6.3* ALB 3.3* 3.1* TBIL 0.7 0.4 ALKP 69 88 AST 13* 14* ALT 13* 15* No results for input(s): APTT , INR in the last 168 hours. Invalid input(s): PT Recent Labs Lab 07/14/23 1246 07/14/23 1432 TROP 4 4 Recent Labs Lab 07/15/23 0415 NA 135* K 4.3 CL 105 CO2 27.1 BUN 14 CR 0.92 CA 8.3* GLU 98 AGAP 2.9* TP 6.3* ALB 3.1* ALT 15* WBC 10.78 HGB 14.3 PLT 204 No results found for this or any previous visit. No results found for this visit on 07/14/23 (from the past 840 hour(s)). Results for orders placed or performed during the hospital encounter of 07/14/23 (from the past 840hour(s)) CULTURE, BACTERIA, BLOOD Collection Time: 07/14/23 12:52 PM Specimen: BLOOD Result Value Ref Range SPEC DESCRIPTION BLOOD SPECIAL REQUESTS STERIPATH NOT USED CULTURE RESULT NO GROWTH 1 DAY CULTURE, BACTERIA, BLOOD Collection Time: 07/14/23 12:46 PM Specimen: BLOOD Result Value Ref Range SPEC DESCRIPTION BLOOD SPECIAL REQUESTS STERIPATH NOT USED CULTURE RESULT NO GROWTH 1 DAY No results found. Assessment Principal Problem: Cellulitis SNOMED CT(R): CELLULITIS Plan # Cellulitis left wrist Failed outpatient oral antibiotics of Bactrim x 2 days Received Rocephin 1 g IV in ER, continue (day 2) Tylenol for pain WBC 12.[address] Dahl did I&D at bedside Wound culture obtained after IV antibiotic initiated Reports improvement since yesterday Blood cultures pending CT scan shows infiltrative edema in wrist/forearm with a bulging 3 x 3 x 1.7 cm focal edema with faint central low density in the radial aspect of wrist and can indicate a growing phlegmon which has not yet turned into a drainable abscess, no osteo, no fracture, no radiodense foreign body # Bipolar I Continue Lamictal No active issues Will DC home today on oral Bactrim Due to severity of illness, expect patient to be here < 2 midnights stay. JORDEN ART Cosigned by Brianna Dahl MD at 07/19/2023 4:18 PM CDT Associated attestation - Brianna Dahl MD - 07/19/2023 4:18 PM CDT I, Brianna Dahl MD personally interviewed and examined the patient, reviewed the hospital tests. I reviewed with the Nurse Practitioner the findings, plan of care and orders. I agree with planof care unless otherwise noted. Bedside I&D with 3cc lidocaine 1% without epi and 11 blade. Skin prepped with iodine. Purulent exudate expressed through 0.5cm incision. Time spent on encounter and care coordination: 47 minutes documented in this encounter ED Notes * Alexi Vergara, - 07/14/2023 10:02 PM CDT Chief Complaint Chief Complaint Patient presents with Insect Bite Chest Pain History of Present Illness 32-year-old male presents to the emergency department complaining of swelling and pain ofhis left forearm. Patient states that this started with a lesion of the distal radial aspect of theforearm about 3 days ago. Patient went to be seen in the emergency department at [place] 2 days ago and was discharged with oral antibiotics. Area of redness continues to expand progressing up his arm and so he returned to the emergency department yesterday and was given a dose of IV antibiotics and then discharged to home. Patient reports that the erythema continues to expand. He has not noted any fever at home, but is mildly febrile in triage. He denies chills, sweats, nausea. He denies any history of MRSA infection. 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 Authorizing Provider lamoTRIgine (LAMICTAL) 150 MG tablet Take 1 tablet (150 mg total) by mouth daily. Yes Doc [facility] PAST MEDICAL HISTORY: Past Medical History: Diagnosis Date Bipolar 1 disorder ([facility]) PAST SURGICAL HISTORY: History reviewed. No pertinent surgical history. FAMILY HISTORY: Family History Problem Relation Name Age of Onset Seizures Mother Crohns Disease Mother Psoriasis Father Psoriasis Sister No Known Problems Brother SOCIAL HISTORY: Social History Tobacco Use Smoking status: Every Day Current packs/day: 1.00 Types: Cigarettes Smokeless tobacco: Never Vaping Use Vaping status: Never Used Substance Use Topics Alcohol use: Never Drug use: Never Review of Systems Review of Systems Cardiovascular: Positive for chest pain. All other systems reviewed and are negative. Physical Exam Filed Vitals: 07/14/23 1530 07/14/23 1535 07/14/23 1729 07/14/23 1925 BP: 114/67 119/64 109/56 Pulse: 83 77 (!) 58 80 Resp: 18 9 16 16 Temp: 97.5 ??F (36.4 ??C) 97.7 ??F (36.5 ??C) TempSrc: Tympanic Tympanic SpO2: 100% 100% 100% 99% Weight: 71.4 kg (157 lb 6.4 oz) Height: 1.803 m (5' 11 ) Physical Exam Vitals and nursing note reviewed. Constitutional: General: He is not in acute distress. Appearance: He is well-developed. He is not diaphoretic. HENT: Head: Normocephalic and atraumatic. Eyes: Conjunctiva/sclera: Conjunctivae normal. Pulmonary: Effort: Pulmonary effort is normal. No respiratory distress. Breath sounds: Normal breath sounds. Skin: Findings: Erythema present. Comments: Dark red indurated area of the distal radial area with purulent ulceration; no fluctuance; erythema progresses up the forearm to just proximal to the antecubital space Neurological: Mental Status: He is alert and oriented to person, place, and time. Psychiatric: Behavior: Behavior normal. Thought Content: Thought content normal. Judgment: Judgment normal. Diagnostic Studies / Procedures ELECTROCARDIOGRAMS: Results for orders placed or performed during the hospital encounter of 07/14/23 ECG 12 lead Narrative [address] 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1990 Requested By: ALEXI VERGARA Order Number: [id number] Reading MD: Dean Love Measurements Intervals [place] Rate: 67 P: 68 DC: 134 QRS: 83 QRSD: 100 T: 67 QT: 362 QTc: 382 Interpretive Statements SINUS RHYTHM WITH SINUS ARRHYTHMIA INCOMPLETE RIGHT BUNDLE BRANCH BLOCK LABORATORY STUDIES: Results for orders placed or performed during the hospital encounter of 07/14/23 CBC W/DIFF AUTOMATED Result Value Ref Range WBC 12.73 (H) 4.00 - 10.80 x10'3/uL RBC 4.57 4.50 - 6.10 x10'6/uL HGB 13.2 13.0 - 18.0 G/DL HCT 38.7 37.0 - 52.0 % MCV 84.7 78.0 - 100.0 FL MCH 28.9 27.0 - 31.0 PG MCHC 34.1 33.0 - 36.0 G/DL RDW 12.6 11.5 - 14.5 % PLT 180 150 - 350 x10'3/uL MPV 10.0 7.4 - 10.4 FL CBC COMMENT NORMAL REFERENCE RANGE NOT ESTABLISHED FOR THE PROPORTIONAL LEUKOCYTE DIFFERENTIAL. NEUTROPHILS 78.3 % LYMPHOCYTES 11.5 % MONOCYTES 9.1 % EOSINOPHILS 0.5 % BASOPHILS 0.4 % IMMATURE GRANS 0.2 % NRBC 0.0 % ABS. NEUTROPHILS 9.96 (H) 1.60 - 8.30 x10'3/uL ABS. LYMPHOCYTES 1.47 0.80 - 4.70 x10'3/uL ABS. MONOCYTES 1.16 0.00 - 1.50 x10'3/uL ABS. EOSINOPHILS 0.06 0.00 - 0.40 x10'3/uL ABS. BASOPHILS 0.05 0.00 - 0.20 x10'3/uL ABS. IMMATURE GRANULOCYTES 0.03 0.00 - 0.03 x10'3/uL ABS. NUCLEATED RBC'S 0.00 0.00 x10'3/uL COMPREHENSIVE METABOLIC PANEL Result Value Ref Range SODIUM S/P/B 135 (L) 136 - 145 MMOL/L POTASSIUM S/P/B 4.2 3.5 - 5.1 MMOL/L CHLORIDE S/P/B 103 98 - 107 MMOL/L CO2 25.8 21.0 - 32.0 MMOL/L GLUCOSE 99 70 - 99 MG/DL BUN 12 6 - 24 MG/DL CREATININE S/P/B 1.06 0.70 - 1.30 MG/DL CALCIUM S/P/B 8.2 (L) 8.4 - 10.5 MG/DL BILIRUBIN TOTAL S/P/B 0.7 0.2 - 1.0 MG/DL ALKALINE PHOSPHATASE S/P/B 69 45 - 115 U/L AST 13 (L) 15 - 37 U/L ALT 13 (L) 16 - 63 U/L TOTAL PROTEIN S/P/B 6.2 (L) 6.4 - 8.2 G/DL ALBUMIN S/P/B 3.3 (L) 3.4 - 5.0 G/DL ANION GAP 6.2 5.0 - 15.0 MMOL/L OSMOLALITY (CALC) 280 MOSM/KG GFR ESTIMATE >90 >89 ML/MIN/1.73 M2 GFR NOTES GFR REFERENCES: LACTIC ACID W REFLEX (SEPSIS) Result Value Ref Range LACTIC ACID VENOUS 0.5 0.4 - 2.0 MMOL/L TROPONIN, QUANT Result Value Ref Range TROPONIN I HIGH SENSITIVITY 4 0 - 76 ng/L TROPONIN, QUANT Result Value Ref Range TROPONIN I HIGH SENSITIVITY 4 0 - 76 ng/L MAGNESIUM Result Value Ref Range MAGNESIUM 1.9 1.8 - 2.4 MG/DL IMAGING STUDIES CT FOREARM LT W CON Final Result by User, [id number] (07/13 0222) Examination: CT FOREARM LT W CON Exam time: 07/14/2023 12:55 PM Clinical history: DRAINING ABSCESS AT DISTAL RADIAL FOREARM TRACKING PROXIMALLY DESPITE ANTIBIOTICS; EVALUATE FOR BONE INVOLVEMENT OR LARGER ABSCESS AMENABLE TO DRAINAGE POTENTIAL BUG BITE ON RADIAL ASPECT OF WRIST, RED AND SWOLLEN, HAPPENED ON MONDAY. PATIENT WAS ON MULTIPLE ANTIBIOTICS WITHOUT RELIEF. PATIENT STATES THAT HE IS NOW HAVING LEFT SIDED CHEST PAIN. Comparison: None Technique: A dose lowering technique was used for this procedure, which may include, but is not limited to, dose reduction technique, automated exposure control, the use of iterative reconstruction, and ALARA (As Low As Reasonably Achievable) / Image Gently techniques. CT left forearm with contrast, 93 cc Isovue 370 Findings: Motion degraded wrist and distal forearm. Skin/soft tissue infiltrative edema in wrist and forearm, without organization of fluid or air from abscess. Bulging 3 x 3 x 1.7 cm focal edema with faint central low density in the radial aspect of wrist, seen on series 5 image 31, can indicate a growing phlegmon which has not yet turned into an drainable abscess. No vascular injuries. No bony destruction or sclerotic changes or fracture. No visible arthropathy. No radiodense foreign body. IMPRESSION: Infiltrative edema in wrist/forearm Bulging 3 x 3 x 1.7 cm focal edema with faint central low density in the radial aspect of wrist, seen on series 5 image 31, can indicate a growing phlegmon which has not yet turned into an drainable abscess. No osteomyelitis No fracture No radiodense foreign body Ordered By: ALEXI VERGARA Interpreted By: Chavo Ma MD, 07/14/2023 1:36 PM ED Course / Medical Decision Making Medical Decision Making Patient presents with erythema and tenderness of the left forearm having failed outpatient treatment. Laboratory workup shows elevated leukocytosis with white blood cell count of 12.73. Lactic acid is normal. CT shows no drainable fluid and no signs of bony involvement. Given the patient's fever, leukocytosis, and failure of outpatient treatment after 48 hours, inpatient management with IV antibiotics appears appropriate. Patient given initial dose of IV ceftriaxone. Patient discussed with Dr. Joyce who is agreeable with admission plan. Amount and/or Complexity of Data Reviewed Labs: ordered. Decision-making details documented in ED Course. Radiology: ordered and independent interpretation performed. Details: No drainable fluid collection in forearm; signs of phlegmon at distal radius; independent visualization consistent with official radiology report ECG/medicine tests: ordered and independent interpretation performed. Decision- making details documented in ED Course. Discussion of management or test interpretation with external provider(s): Admission plan discussedand agreeable with Dr. Joyce. Risk Prescription drug management. Parenteral controlled substances. Decision regarding hospitalization. ED Course as of 07/14/232209July 14, 2023 1228 ECG 12 lead Sinus, rate = 67, regular, no ST elevation [JW] 1257 WBC(!): 12.73 [JW] ED Course User Index [JW] Alexi Vergara DO Clinical Impression Cellulitis of left upper extremity (Primary) Disposition: Admit IAlexi D.O., dictated portions of this note using [employer] speech recognition software. Occasional wrong word or sound-alike substitutions may have occurred due to the inherent limitationsof voice recognition software. Please read the chart carefully and recognize, using context, where s ubstitutions may have occurred. Alexi Vergara DO 07/14/230 * Uzma Mc RN - 07/14/2023 3:[address] Joyce returns call to Dr Vergara * Uzma Mc RN - 07/14/2023 1:25 PM CDT Called to [facility], spoke with GLENDA - HIS- requested records of previous ER visits. Will fax release of info. * Karla Bailon RN - 07/14/2023 12:16 PM CDT Patient comes to the ER today with what he thinks is a bug bite to his left wrist. Area noticed Monday. Monday he started on an antibiotic. He is was seen in [place] ER yesterday and was given fluids and an iv antibiotic. Area has gotten worse. Today he states that over the past hour he has had left sided chest pain when he goes to breath more he states. States that today he had a bad headache to where he felt like he was going to throw up. Rates the head at a 1. Rates the chest at a 4/5 and that it comes and goes. documented in this encounter Plan of Treatment Not on file documented as of this encounter Procedures Procedure Name Priority Date/Time Associated Diagnosis Comments HC BODY FLUID CULTURE Routine 07/15/2023 12:00 PM CDT COMPREHENSIVE METABOLIC PANEL STAT 07/15/2023 4:15 AM CDT CBC W/DIFF AUTOMATED STAT 07/15/2023 4:15 AM CDT TROPONIN, QUANT STAT 07/14/2023 2:[address] FOREARM LT W CON STAT 07/14/2023 1 :12 PM CDT CULTURE, BACTERIA, BLOOD STAT 07/14/2023 12:52 PM CDT LACTIC ACID W REFLEX (SEPSIS) STAT 07/14/2023 12:46 PM CDT COMPREHENSIVE METABOLIC PANEL STAT 07/14/2023 12:46 PM CDT CULTURE, BACTERIA, BLOOD STAT 07/14/2023 12:46 PM CDT CBC W/DIFF AUTOMATED STAT 07/14/2023 12:46 PM CDT TROPONIN, QUANT STAT 07/14/2023 12:46 PM CDT MAGNESIUM STAT 07/14/2023 12:46 PM CDT ECG 12-LEAD Routine 07/14/2023 12:23 PM CDT documented in this encounter Results * (ABNORMAL) CULTURE, WOUND, W/GRAM STAIN (07/15/2023 12:00 PM CDT) SPEC DESCRIPTION WRIST,LEFT 07/15/2023 11:45 AM CDT [facility] SPECIAL REQUESTS NO SPECIAL REQUEST 07/15/2023 11:45 AM CDT [facility] GRAM STAIN RESULT NO ORGANISMS SEEN 07/15/2023 4:20 PM CDT [facility] CULTURE RESULT MODERATE METHICILLIN RESISTANT STAPHYLOCOCCUS AUREUS (A) 07/17/2023 10:21 AM CDT [facility] STRUCTURE OF LEFT WRIST REGION / Unknown 07/15/2023 12:00 PM CDT 07/15/2023 12:45 PM CDT Narrative Organism Antibiotic Method Susceptibility Methicillin resistant staphy lococcus aureus CLINDAMYCIN CHANTELL (VITEK) Sensitive Methicillin resistant staphy lococcus aureus ERYTHROMYCIN CHANTELL (VITEK) Resistant Methicillin resistant staphy lococcus aureus GENTAMICIN CHANTELL (VITEK) Sensitive Methicillin resistant staphy lococcus aureus OXACILLIN CHANTELL (VITEK) Resistant Methicillin resistant staphy lococcus aureus PENICILLIN G CHANTELL (VITEK) Resistant Methicillin resistant staphy lococcus aureus RIFAMPIN CHANTELL (VITEK) Sensitive Methicillin resistant staphy lococcus aureus TRIMETH-SULFAMETH. CHANTELL (VITEK) Sensitive Methicillin resistant staphy lococcus aureus TETRACYCLINE CHANTELL (VITEK) Sensitive Methicillin resistant staphy lococcus aureus TIGECYCLINE CHANTELL (VITEK) Sensitive Methicillin resistant staphy lococcus aureus VANCOMYCIN CHANTELL (VITEK) Sensitive Martha Chan [facility] MICROBIOLOGY - GENERAL OR DERABLES Final Result [facility] [address] [place] [address], [id number] [facility] [place] [address], * (ABNORMAL) COMPREHENSIVE METABOLIC PANEL (07/15/2023 4:15 AM CDT) SODIUM S/P/B 135(L) 136 - 145 MMOL/L 07/15/2023 5:00 AM CDT [facility] POTASSIUM S/P/B 4.3 3.5 - 5.1 MMOL/L 07/15/2023 5:00 AM CDT [facility] CHLORIDE S/P/B 105 98 - 107 MMOL/L 07/15/2023 5:00 AM CDT [facility] CO2 27.1 21.0 - 32.0 MMOL/L 07/15/2023 5:00 AM CDT [facility] GLUCOSE 98 70 - 99 MG/DL 07/15/2023 5:00 AM CDT [facility] Comment: FASTING GLUCOSE 100 TO 125 MG/DL IS CONSISTENT WITH IMPAIRED FASTING GLUCOSE. FASTING GLUCOSE >125 MG/DL IS CONSISTENT WITH DIABETES. RANDOM GLUCOSE >200 MG/DL WITH HYPERGLYCEMIC SYMPTOMS IS CONSISTENT WITH DIABETES. PER ADA GUIDELINES BUN 14 6 - 24 MG/DL 07/15/2023 5:00 AM [facility] CREATININE S/P/B 0.92 0.70 - 1.30 MG/DL 07/15/2023 5:00 AM [facility] CALCIUM S/P/B 8.3(L) 8.4 - 10.5 MG/DL 07/15/2023 5:00 AM [facility] BILIRUBIN TOTAL S/P/B 0.4 0.2 - 1.0 MG/DL 07/15/2023 5:00 AM [facility] Comment: THIS ASSAY IS NOT RECOMMENDED FOR PATIENTS UNDERGOING TREATMENT WITH ELTROMBOPAG DUE TO THE POTENTIAL FOR FALSELY ELEVATED RESULTS. ALKALINE PHOSPHATASE S/P/B 88 45 - 115 U/L 07/15/2023 5:00 AM [facility] AST 14(L) 15 - 37 U/L 07/15/2023 5:00 AM [facility] ALT 15(L) 16 - 63 U/L 07/15/2023 5:00 AM [facility] TOTAL PROTEIN S/P/B 6.3(L) 6.4 - 8.2 G/DL 07/15/2023 5:00 AM [facility] ALBUMIN S/P/B 3.1(L) 3.4 - 5.0 G/DL 07/15/2023 5:00 AM [facility] ANION GAP 2.9(L) 5.0 - 15.0 MMOL/L 07/15/2023 5:00 AM [facility] OSMOLALITY (CALC) 280 MOSM/KG 024 5:00 AM [facility] Comment:REFERENCE RANGE NOT ESTABLISHED GFR ESTIMATE >90 >89 ML/MIN/1. 73 M2 07/15/2023 5:00 AM [facility] GFR NOTES GFR REFERENCE S: 07/15/2023 5:00 AM CDT [facility] Comment: THE ESTIMATED GFR IS CALCULATED USING THE 2020 CKD-EPI EQUATION. THE FOLLOWING CATEGORIES FOR GRADING RENAL FUNCTION ARE RECOMMENDED BY THE INTERNATIONAL SOCIETY OF NEPHROLOGY (KDIGO 2012 CLINICAL PRACTICE GUIDELINE). G1,NORMAL OR HIGH: >89 ml/min/1.73 m2 G2,MILDLY DECREASED: 60-89 ml/min/1.73 m2 G3A,MILDLY TO MODERATELY DECREASED: 45-59 ml/min/1.73 m2 G3B,MODERATELY TO SEVERELY DECREASED: 30-44 ml/min/1.73 m2 G4,SEVERELY DECREASED: 15-29 ml/min/1.73 m2 G5,KIDNEY FAILURE: <15 ml/min/1.73 m2 07/15/2023 4:15 AM CDT Alexi Vergara DO LABORATORY Final Result [facility] [place] [address], * (ABNORMAL) CBC W/DIFF AUTOMATED (07/15/2023 4:15 AM CDT) WBC 10.78 4.00 - 10.80 x10'3/uL 07/15/2023 4:45 AM CDT [facility] RBC 4.99 4.50 - 6.10 x10'6/uL 07/15/2023 4:45 AM CDT [facility] HGB 14.3 13.0 - 18.0 G/DL 07/15/2023 4:45 AM CDT [facility] HCT 42.3 37.0 - 52.0 % 07/15/2023 4:45 AM CDT [facility] MCV 84.8 78.0 - 100.0 FL 07/15/2023 4:45 AM CDT [facility] MCH 28.7 27.0 - 31.0 PG 07/15/2023 4:45 AM CDT [facility] MCHC 33.8 33.0 - 36.0 G/DL 07/15/2023 4:45 AM CDT [facility] RDW 12.8 11.5 - 14.5 % 07/15/2023 4:45 AM CDT [facility] PLT 204 150 - 350 x10'3/uL 07/15/2023 4:45 AM CDT [facility] MPV 10.2 7.4 - 10.4 FL 07/15/2023 4:45 AM CDT [facility] CBC COMMENT NORMAL REFERENCE RANGE NOT ESTABLISHED FOR THE PROPORTIONAL LEUKOCYTE DIFFERENTIAL. 07/15/2023 4:45 AM CDT [facility] NEUTROPHILS % 66.0 % 07/15/2023 4:45 AM CDT [facility] LYMPHOCYTES % 20.1 % 07/15/2023 4:45 AM CDT [facility] MONOCYTES % 10.9 % 07/15/2023 4:45 AM CDT [facility] EOSINOPHILS % 2.0 % 07/15/2023 4:45 AM CDT [facility] BASOPHILS % 0.6 % 07/15/2023 4:45 AM CDT [facility] IMMATURE GRANS % 0.4 % 07/15/19 4:45 AM CDT [facility] NRBC 0.0 % 07/15/2023 4:45 AM CDT [facility] ABS. NEUTROPHILS 7.12 1.60 - 8.30 x10'3/uL 07/15/2023 4:45 AM CDT [facility] ABS. LYMPHOCYTES 2.17 0.80 - 4.70 x10'3/uL 07/15/2023 4:45 AM CDT [facility] ABS. MONOCYTES 1.17 0.00 - 1.50 x10'3/uL 07/15/2023 4:45 AM CDT [facility] ABS. EOSINOPHILS 0.22 0.00 - 0.40 x10'3/uL 07/15/2023 4:45 AM CDT [facility] ABS. BASOPHILS 0.06 0.00 - 0.20 x10'3/uL 07/15/2023 4:45 AM CDT [facility] ABS. IMMATURE GRANULOCYTES 0.04(H) 0.00 - 0.03 x10'3/uL 07/15/2023 4:45 AM CDT [facility] ABS. NUCLEATED RBC'S 0.00 0.00 x10'3/uL 07/15/2023 4:45 AM CDT [facility] 07/15/2023 4:15 AM CDT us Alexi Vergara [place] [address], [place] [phone] * TROPONIN, QUANT (07/14/2023 2:32 PM CDT) TROPONIN I HIGH SENSITIVITY 4 0 - 76 ng/L 07/14/2023 2:57 PM CDT [facility] 07/14/2023 2:32 PM CDT us Alexi Vergara DO LABORATORY Final Result Performing Organization Address [facility]/[place] [address], [place] [phone] * CT FOREARM LT W CON (07/14/2023 1:12 PM CDT) Anatomical Region Laterality Modality Extremity Computed Tomogra phy 07/14/2023 1:36 PM CDT Impressions 07/14/2023 1:42 PM CDT IMPRESSION: Infiltrative edema in wrist/forearm Bulging 3 x 3 x 1.7 cm focal edema with faint central low density in the radial aspect of wrist, seen on series 5 image 31, can indicate a growing phlegmon which has not yet turned into an drainable abscess. No osteomyelitis No fracture No radiodense foreign body Ordered By: ALEXI VERGARA Interpreted By: Chavo Ma MD, 07/14/2023 1:36 PM Narrative 07/14/2023 1:42 PM CDT Examination: CT FOREARM LT W CON Exam time: 07/14/2023 12:55 PM Clinical history: DRAINING ABSCESS AT DISTAL RADIAL FOREARM TRACKING PROXIMALLY DESPITE ANTIBIOTICS; EVALUATE FOR BONE INVOLVEMENT OR LARGER ABSCESS AMENABLE TO DRAINAGE POTENTIAL BUG BITE ON RADIAL ASPECT OF WRIST, RED AND SWOLLEN, HAPPENED ON MONDAY. PATIENT WAS ON MULTIPLE ANTIBIOTICS WITHOUT RELIEF. PATIENT STATES THAT HE IS NOW HAVING LEFT SIDED CHEST PAIN. Comparison: None Technique: A dose lowering technique was used for this procedure, which may include, but is not limited to, dose reduction technique, automated exposure control, the use of iterative reconstruction, and ALARA (As Low As Reasonably Achievable) / Image Gently techniques. CT left forearm with contrast, 93 cc Isovue 370 Findings: Motion degraded wrist and distal forearm. Skin/soft tissue infiltrative edema in wrist and forearm, without organization of fluid or air from abscess. Bulging 3 x 3 x 1.7 cm focal edema with faint central low density in the radial aspect of wrist, seen on series 5 image 31, can indicate a growing phlegmon which has not yet turned into an drainable abscess. No vascular injuries. No bony destruction or sclerotic changes or fracture. No visible arthropathy. No radiodense foreign body. Procedure Note Chavo Ma MD - 07/14/2023 Examination: CT FOREARM LT W CON Exam time: 07/14/2023 12:55 PM Clinical history: DRAINING ABSCESS AT DISTAL RADIAL FOREARM TRACKINGPROXIMALLY DESPITE ANTIBIOTICS; EVALUATE FOR BONE INVOLVEMENT OR LARGERABSCESS AMENABLE TO DRAINAGE POTENTIAL BUG BITE ON RADIAL ASPECT OF WRIST, RED AND SWOLLEN, HAPPENED ONT. PATIENT WAS ON MULTIPLE ANTIBIOTICS WITHOUT RELIEF. PATIENTSTATES THAT HE IS NOW HAVING LEFT SIDED CHEST PAIN. Comparison: None Technique: A dose lowering technique was used for this procedure, whichmay include, but is not limited to, dose reduction technique, automatedexposure control, the use of iterative reconstruction, and ALARA (As LowAs Reasonably Achievable) / Image Gently techniques. CT left forearm withcontrast, 93 cc Isovue 370 Findings: Motion degraded wrist and distal forearm. Skin/soft tissueinfiltrative edema in wrist and forearm, without organization of fluid orair from abscess. Bulging 3 x 3 x 1.7 cm focal edema with faint centrallow density in the radial aspect of wrist, seen on series 5 image 31, canindicate a growing phlegmon which has not yet turned into an drainableabscess. No vascular injuries. No bony destruction or sclerotic changes orfracture. No visible arthropathy. No radiodense foreign body. IMPRESSION: Infiltrative edema in wrist/forearm Bulging 3 x 3 x 1.7 cm focal edema with faint central low density in theradial aspect of wrist, seen on series 5 image 31, can indicate a growingphlegmon which has not yet turned into an drainable abscess. No osteomyelitis No fracture No radiodense foreign body Ordered By: ALEXI VERGARA Interpreted By: Chavo Ma MD, 07/14/2023 1:36 PM us Alexi Vergara DO CT Final Result * CULTURE, BACTERIA, BLOOD (07/14/2023 12:52 PM CDT) SPEC DESCRIPTION BLOOD 07/14/2023 12:55 PM CDT [facility] SPECIAL REQUESTS STERIPATH NOT USED 07/14/2023 12:55 PM CDT [facility] CULTURE RESULT NO GROWTH 5 DAYS 07/19/2023 12:58 PM CDT [facility] BLOOD SPECIMEN OBTAINED FOR BLOOD CULTURE / Unknown 07/14/2023 12:52 PM CDT 07/14/2023 12:55 PM CDT us Alexi Vergara DO MICROBIOLOGY - GENERAL ORDERABLE S Final Result [facility] [address] [place] [address], * MAGNESIUM (07/14/2023 12:46 PM CDT) MAGNESIUM 1.9 1.8 - 2.4 MG/DL 07/14/2023 1:13 PM CDT [facility] 07/14/2023 12:4 6 PM CDT us Alexi Vergara DO LABORATORY Final Result Performing Organization Address [facility]/ZIP Co de Phone Number [facility] [address] [place] [id number], [place] [phone] * TROPONIN, QUANT (07/14/2023 12:46 PM CDT) TROPONIN I HIGH SENSITIVITY 4 0 - 76 ng/L 07/14/2023 1:13 PM CDT [facility] 07/14/2023 12:4 6 PM CDT us Alexi Vergara DO LABORATORY Final Result Performing Organization Address [facility] de Phone Number [facility] [address] [place] [address], [place] [phone] * LACTIC ACID W REFLEX (SEPSIS) (07/14/2023 12:46 PM CDT) LACTIC ACID VENOUS 0.5 0.4 - 2.0 MMOL/L 07/14/2023 1:17 PM CDT [facility] 07/14/2023 12:4 6 PM CDT us Alexi Vergara DO LABORATORY Final Result Performing Organization Address [facility]/ZIP Co de Phone Number [facility] [address] [place] [address], [place] [phone] * (ABNORMAL) COMPREHENSIVE METABOLIC PANEL (07/14/2023 12:46 PM CDT) SODIUM S/P/B 135(L) 136 - 145 MMOL/L 07/14/2023 1:13 PM CDT [facility] POTASSIUM S/P/B 4.2 3.5 - 5.1 MMOL/L 07/14/2023 1:13 PM CDT [facility] CHLORIDE S/P/B 103 98 - 107 MMOL/L 07/14/2023 1:13 PM [facility] CO2 25.8 21.0 - 32.0 MMOL/L 07/14/2023 1:13 PM [facility] GLUCOSE 99 70 - 99 MG/DL 07/14/2023 1:13 PM [facility] Comment: FASTING GLUCOSE 100 TO 125 MG/DL IS CONSISTENT WITH IMPAIRED FASTING GLUCOSE. FASTING GLUCOSE >125 MG/DL IS CONSISTENT WITH DIABETES. RANDOM GLUCOSE >200 MG/DL WITH HYPERGLYCEMIC SYMPTOMS IS CONSISTENT WITH DIABETES. PER ADA GUIDELINES BUN 12 6 - 24 MG/DL 07/14/2023 1:13 PM T [facility] CREATININE S/P/B 1.06 0.70 - 1.30 MG/DL 07/14/2023 1:13 PM [facility] CALCIUM S/P/B 8.2(L) 8.4 - 10.5 MG/DL 07/14/2023 1:13 PM [facility] BILIRUBIN TOTAL S/P/B 0.7 0.2 - 1.0 MG/DL 07/14/2023 1:13 PM [facility] Comment: THIS ASSAY IS NOT RECOMMENDED FOR PATIENTS UNDERGOING TREATMENT WITH ELTROMBOPAG DUE TO THE POTENTIAL FOR FALSELY ELEVATED RESULTS. ALKALINE PHOSPHATASE S/P/B 69 45 - 115 U/L 07/14/2023 1:13 PM [facility] AST 13(L) 15 - 37 U/L 07/14/2023 1:13 PM [facility] ALT 13(L) 16 - 63 U/L 07/14/2023 1:13 PM [facility] TOTAL PROTEIN S/P/B 6.2(L) 6.4 - 8.2 G/DL 07/14/2023 1:13 PM [facility] ALBUMIN S/P/B 3.3(L) 3.4 - 5.0 G/DL 07/14/2023 1:13 PM [facility] ANION GAP 6.2 5.0 - 15.0 MMOL/L 07/14/2023 1:13 PM CDT [facility] OSMOLALITY (CALC) 280 MOSM/KG 024 1:13 PM CDT [facility] Comment:REFERENCE RANGE NOT ESTABLISHED GFR ESTIMATE >90 >89 ML/MIN/1. 73 M2 07/14/2023 1:13 PM CDT [facility] GFR NOTES GFR REFERENCE S: 07/14/2023 1:13 PM CDT [facility] Comment: THE ESTIMATED GFR IS CALCULATED USING THE 2020 CKD-EPI EQUATION. THE FOLLOWING CATEGORIES FOR GRADING RENAL FUNCTION ARE RECOMMENDED BY THE [employer] (KDIGO 2012 CLINICAL PRACTICE GUIDELINE). G1,NORMAL OR HIGH: >89 ml/min/1.73 m2 G2,MILDLY DECREASED: 60-89 ml/min/1.73 m2 G3A,MILDLY TO MODERATELY DECREASED: 45-59 ml/min/1.73 m2 G3B,MODERATELY TO SEVERELY DECREASED: 30-44 ml/min/1.73 m2 G4,SEVERELY DECREASED: 15-29 ml/min/1.73 m2 G5,KIDNEY FAILURE: <15 ml/min/1.73 m2 07/14/2023 12:4 6 PM CDT us Alexi Vergara DO LABORATORY Final Result [facility] [address] [place] [address], * (ABNORMAL) CBC W/DIFF AUTOMATED (07/14/2023 12:46 PM CDT) WBC 12.73(H) 4.00 - 10.80 x10'3/uL 07/14/2023 12:55 PM CDT [facility] RBC 4.57 4.50 - 6.10 x10'6/uL 07/14/2023 12:55 PM CDT [facility] HGB 13.2 13.0 - 18.0 G/DL 07/14/2023 12:55 PM CDT [facility] HCT 38.7 37.0 - 52.0 % 07/14/2023 12:55 PM CDT [facility] MCV 84.7 78.0 - 100.0 FL 07/14/2023 12:55 PM CDT [facility] MCH 28.9 27.0 - 31.0 PG 07/14/2023 12:55 PM CDT [facility] MCHC 34.1 33.0 - 36.0 G/DL 07/14/2023 12:55 PM CDT [facility] RDW 12.6 11.5 - 14.5 % 07/14/2023 12:55 PM CDT [facility] PLT 180 150 - 350 x10'3/uL 07/14/2023 12:55 PM CDT [facility] MPV 10.0 7.4 - 10.4 FL 07/14/2023 12:55 PM CDT [facility] CBC COMMENT NORMAL REFERENCE RANGE NOT ESTABLISHED FOR THE PROPORTIONAL LEUKOCYTE DIFFERENTIAL. 07/14/2023 12:55 PM CDT [facility] NEUTROPHILS % 78.3 % 07/14/2023 12:55 PM CDT [facility] LYMPHOCYTES % 11.5 % 07/14/2023 12:55 PM CDT [facility] MONOCYTES % 9.1 % 07/14/2023 12:55 PM CDT [facility] EOSINOPHILS % 0.5 % 07/14/2023 12:55 PM CDT [facility] BASOPHILS % 0.4 % 07/14/2023 12:55 PM CDT [facility] IMMATURE GRANS % 0.2 % 07/14/19 12:55 PM CDT [facility] NRBC 0.0 % 07/14/2023 12:55 PM CDT [facility] ABS. NEUTROPHILS 9.96(H) 1.60 - 8.30 x10'3/uL 07/14/2023 12:55 PM CDT [facility] ABS. LYMPHOCYTES 1.47 0.80 - 4.70 x10'3/uL 07/14/2023 12:55 PM CDT [facility] ABS. MONOCYTES 1.16 0.00 - 1.50 x10'3/uL 07/14/2023 12:55 PM CDT [facility] ABS. EOSINOPHILS 0.06 0.00 - 0.40 x10'3/uL 07/14/2023 12:55 PM CDT [facility] ABS. BASOPHILS 0.05 0.00 - 0.20 x10'3/uL 07/14/2023 12:55 PM CDT [facility] ABS. IMMATURE GRANULOCYTES 0.03 0.00 - 0.03 x10'3/uL 07/14/2023 12:55 PM CDT [facility] ABS. NUCLEATED RBC'S 0.00 0.00 x10'3/uL 07/14/2023 12:55 PM CDT [facility] 07/14/2023 12:4 6 PM CDT us Alexi Vergara DO LABORATORY Final Result Performing Organization Address City/[facility]/ZIP Co de Phone Number [place] [address] [place] [address], * CULTURE, BACTERIA, BLOOD (07/14/2023 12:46 PM CDT) SPEC DESCRIPTION BLOOD 07/14/2023 12:52 PM CDT [facility] SPECIAL REQUESTS STERIPATH NOT USED 07/14/2023 12:52 PM CDT [facility] CULTURE RESULT NO GROWTH 5 DAYS 07/19/2023 12:58 PM CDT [facility] BLOOD SPECIMEN OBTAINED FOR BLOOD CULTURE / Unknown 07/14/2023 12:46 PM CDT 07/14/2023 12:51 PM CDT us Alexi Vergara DO MICROBIOLOGY - GENERAL ORDERABLE S Final Result Performing Organization Address [facility]/ZIP Co de Phone Number [facility] [address] [place] [address], * ECG 12 lead (07/14/2023 12:23 PM CDT) 07/14/2023 12:2 3 PM CDT Narrative [facility] - 07/14/2023 1:05 PM CDT ? [facility] ?[address] [place], [place] ??[address] ? Test Date: ?2023-07-14 Pat Name: ? TIM HDZE ?Department: ?? 3 ? Room: ? EXAM 202 Gender: ? Male ? Medication Administration Professional: ?? : ?1990 ? Requested By: ALEXI VERGARA Order Number: [id number] ? Reading MD: ?? Dean Love ? Measurements Intervals ?[place] ? Rate: ? 67 ? P: ?68 DC: ? 134 ?QRS: ?83 QRSD: ? 100 ?T: ?67 QT: ? 362 ? QTc: ?382 ? Interpretive Statements SINUS RHYTHM WITH SINUS ARRHYTHMIA INCOMPLETE RIGHT BUNDLE BRANCH BLOCK Procedure Note Dean Love MD - 07/14/[address] [place] [address] Test Date: 2023-07-14 Pat Name: TIM LEMUEL Department: 3 Room: EXAM 202 Gender: Male Medication Administration Professional: : 1990 Requested By: ALEXI VERGARA Order Number: [id number] Reading MD: Dean Love Measurements Intervals [place] Rate: 67 P: 68 DC: 134 QRS: 83 QRSD: 100 T: 67 QT: 362 QTc: 382 Interpretive Statements SINUS RHYTHM WITH SINUS ARRHYTHMIA INCOMPLETE RIGHT BUNDLE BRANCH BLOCK us Alexi Vergara DO ECG ORDERABLES Final Result [facility] documented in this encounter Visit Diagnoses Diagnosis Cellulitis- Primary Cellulitis and abscess of unspecified site Cellulitis of left upper extremity Cellulitis and abscess of upper arm and forearm documented in this encounter Admitting Diagnoses Diagnosis Cellulitis Cellulitis and abscess of unspecified site documented in this encounter Administered Medications Inactive Administered Medications - up to 3 most recent administrations Medication Order MAR Action Action Date Dose Rate Site cefTRIAXone (ROCEPHIN) 1 g in sodium chloride 0.9 % 50 mL IVPB 1 g, Intravenous, at 100 mL/hr, Once, 1 dose, On Mon07/14/23 at 1300 New Bag 07/14/2023 2:09 PM CDT 1 g 100 mL/hr cefTRIAXone (ROCEPHIN) 1 g in sodium chloride 0.9 % 50 mL IVPB 1 g, Intravenous, at 100 mL/hr, Once, 1 dose, On Mon07/15/23 at 0815 New Bag 07/15/2023 8:29 AM CDT 1 g 100 mL/hr ibuprofen (MOTRIN) tablet 600 mg 600 mg, Oral, Every 6 hours PRN, Mild pain (Scale 1 - 3), Starting on Mon07/14/23 at 1750, Until Mon07/15/23 at 1408 Given 07/15/2023 8:28 AM CDT 600 mg Given 07/14/2023 6:08 PM CDT 600 mg iopamidol (ISOVUE-370) 76 % injection 93 mL 93 mL, Intravenous, IMG once as needed, Contrast, 1 dose, Starting on Mon07/14/23 at 1312, Until Mon07/14/23 at 1312 Given 07/14/2023 1:12 PM CDT 93 mLs lamoTRIgine (laMICtal) tablet 150 mg 150 mg, Oral, Daily, First dose (after last modification) on Mon07/15/23 at 0830, Until Discontinued Given 07/15/2023 8:28 AM CDT 150 mg lidocaine (PF) (XYLOCAINE) 1 % injection 3 mL 3 mL, Intradermal, Once, 1 dose, On Mon07/15/23 at 1045 Given 07/15/2023 10:50 AM CDT 3 mLs Left Arm lidocaine (PF) (XYLOCAINE) 1 % injection 1 dose, Starting on Mon07/15/23 at 1025, Until Mon07/15/23 at 1050, Created by cabinet override morphine injection 2 mg 2 mg, Intravenous, Every 4 hours PRN, Severe pain (Scale 8 - 10), Starting on Mon07/14/23 at 1751, Until Mon07/15/23 at 1408 sodium chloride 0.9% bolus infusion 1,000 mL 1,000 mL, Intravenous, Administer over 30 Minutes, Once, 1 dose, On Mon07/14/23 at 1245 New Bag 07/14/2023 2:08 PM CDT 1,000 mLs documented in this encounter Active and Recently Administered Medications Times are shown in CDT. Scheduled Medication Order 07/13/2023 07/14/2023 07/15/2023 cefTRIAXone (ROCEPHIN) 1 g in sodium chloride 0.9 % 50 mL IVPB (COMPLETED) 1 g, Intravenous, at 100 mL/hr, Once, 1 dose, On Mon07/14/23 at 1300 1409 (New Bag - Provider: Uzma Mc, ALEENA)1440 (Infusion Stop Time - Provider: Uzma Mc RN) cefTRIAXone (ROCEPHIN) 1 g in sodium chloride 0.9 % 50 mL IVPB (COMPLETED) 1 g, Intravenous, at 100 mL/hr, Once, 1 dose, On 07/15/23 at 0815 0829 (New Bag - Provider: Celine Chacko RN)0909 (Infusion Stop Time - Provider: Celine Chacko RN) lamoTRIgine (laMICtal) tablet 150 mg 150 mg, Oral, Daily, First dose (after last modification) on 07/15/23 at 0830, Until Discontinued 0828 (Given - Provid er: Celine Chacko RN) lidocaine (PF) (XYLOCAINE) 1 % injection 3 mL (COMPLETED) 3 mL, Intradermal, Once, 1 dose, On 07/15/23 at 1045 1050 (Given - Provid er: Celine Chacko RN) sodium chloride 0.9% bolus infusion 1,000 mL (COMPLETED) 1,000 mL, Intravenous, Administer over 30 Minutes, Once, 1 dose, On Mon07/14/23 at 1245 1408 (New Bag - Provider: Uzma Mc RN)1517 (Infusion Stop Time - Provider: Karla Bailon RN) PRN Medication Order 07/13/2023 07/14/2023 07/15/2023 ibuprofen (MOTRIN) tablet 600 mg 600 mg, Oral, Every 6 hours PRN, Mild pain (Scale 1 - 3), Starting on Mon07/14/23 at 1750, Until 07/15/23 at 1408 1808 (Given - Provider: Marisel Harris, RN) 0828 (Given - Provider: Celine Chacko, RN) iopamidol (ISOVUE-370) 76 % injection 93 mL (COMPLETED) 93 mL, Intravenous, IMG once as needed, Contrast, 1 dose, Starting on Mon07/14/23 at 1312, Until Mon07/14/23 at 1312 1312 (Given - Provider: Inna Solis RTR) morphine injection 2 mg 2 mg, Intravenous, Every 4 hours PRN, Severe pain (Scale 8 - 10), Starting on Mon07/14/23 at 1751, Until 07/15/23 at 1408 ondansetron (ZOFRAN) injection 4 mg 4 mg, Intravenous, Every 4 hours PRN, Nausea, Vomiting, Starting on Mon07/14/23 at 1738, Until 07/15/23 at 1408, IV push over 2-5 minutes. 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
--- OUTSIDE RECORDS SUMMARY | 2024-02-28 13:27 | XMS_ITS | Encounter Summary ---
Author Organization [facility] Address [address] [place] [address]. [place], [place] [id number] [place] [id number] Care Team Providers Care Autographer Name Role Phone None, Provider Primary Care Provider Unavaila ble Encounter Details Date Type Department Care Team (Latest Contact Info) Description 04/21/2021 Travel Social History Tobacco Use Types Packs/Day Years Used Date Smoking Tobacco: Every Day Cigarettes Smokeless Tobacco: Never Alcohol Use Standard Drinks/Week Comments Never 0 (1 standard drink = 0.6 oz pur e alcohol) AUDIT-C Answer Date Recorded Q1: How often do you have a drink containing alc ohol? Never 07/17/2020 Average Number of Drinks Not on file 021 Frequency of Binge Drinking Not on file 06/21 Sex and Gender Information Value Date Recorded Sex Assigned at Not on file Legal Sex Male 4:56 PM CDT Gender Identity Not on file Sexual Orientation Not on file COVID-19 Exposure Response Date Recorded In the last 10 days, have yo u been in contact with someone who was confirmed or suspected to have Coronavirus/COVID-19? No / Unsure 04/21/2021 9:20 AM OUTSIDE PRODUCTION INSPECTOR documented as of this encounter Plan of Treatment Not on file documented as of this encounter Visit Diagnoses Not on filedocumented in this encounter Additional Health Concerns Infection Onset Date Last Indicated Resolved Time MRSA Comment:09/18/20 Left Leg (RG) 09/20/2020 07/15/2023 COVID-19 Rule Out 04/21/2021 04/21/2021 04/21/2021 9:55 AM OUTSIDE PRODUCTION INSPECTOR documented as of this encounter Care Teams Autographer Relationship Specialty Start Date End Date None, Provider, PCP - General 07/17/20 12/22/21 documented as of this encounter
--- OUTSIDE RECORDS SUMMARY | 2024-02-28 13:27 | XMS_ITS | Encounter Summary ---
Author Organization [facility] Address [address] [place] [address]. [place] [address] [place] [address] Care Team Providers Care Wall Man Name Role Phone None, Provider Primary Care Provider Unavaila ble Reason for Visit * Reason Comments Medical Problem Encounter Details Date Type Department Care Team (Late st Contact Info) Description 04/21/2021 9:17 AM MASH FILTER CLOTH CHANGER - 04/21/2021 10:02 AM MASH FILTER CLOTH CHANGER Emergency [facility] [address] [place] [address] [place] [id number] Kevin Hernandez MD [address] [place] [id number] Medical Problem Discharge Disposition: Home or Self Care (Routine [...] Coronavirus/COVID-19? No / Unsure 04/21/2021 9:20 AM MASH FILTER CLOTH CHANGER documented as of this encounter Last Filed Vital Signs Vital Sign Reading Time Taken Comments Blood Pressure 131/82 04/21/2021 9:22 AM MASH FILTER CLOTH CHANGER Pulse 84 04/21/2021 9:22 AM MASH FILTER CLOTH CHANGER Temperature 36.8 ??C (98.2 ??F) 04/21/2021 9:22 AM CS T Respiratory Rate 16 04/21/2021 9:22 AM MASH FILTER CLOTH CHANGER Oxygen Saturation 100% 04/21/2021 9:22 AM MASH FILTER CLOTH CHANGER Inhaled Oxygen Concentration - - Weight 72.2 kg (159 lb 4 oz) 04/21/2021 9:22 AM MASH FILTER CLOTH CHANGER Height 180.3 cm (5' 11 ) 04/21/2021 9:22 AM MASH FILTER CLOTH CHANGER Body Mass Index 22.21 04/21/2021 9:22 AM MASH FILTER CLOTH CHANGER documented in this encounter Discharge Instructions * Attachments The following attachments cannot be sent through Care Everywhere. * Sinusitis in Adults (Nepalese) documented in this encounter Medications at Time of Discharge lamoTRIgine (LAMICTAL) 150 MG tablet Take 1 tablet (150 mg total) by mouth daily. amoxicillin-clavu lanate (AUGMENTIN) 875-125 MG tablet Take 1 tablet (875 mg total) by mouth 2 (two) times daily for 10 days. 20 tablet 04/21/2021 05/01/2021 documented as of this encounter ED Notes * Yany Pascual RN - 04/21/2021 9:24 AM CST Ambulatory with c/o vomiting x2 weeks. C/o toes and thighs cramping. States began with headache yesterday. Also c/o sinus congestion and productive cough FILTER CLOTH CHANGER * Kevin Hernandez MD - 04/21/2021 9:07 AM CST eMERGENCY dEPARTMENT eNCOUnter CHIEF COMPLAINT Chief Complaint Patient presents with ??? Medical Problem HPI HPI Tim Perez is a 30-year-old male who presents to the ER with a complaint of being sick for last 2 weeks with congestion cough of green and orange sputum sinus congestion and migraine headache.And last several days he has felt more weak with body aches and muscle cramping. He is a long-term smoker and his primary care physician is in [place] but is not sure who it is. No sick contacts orother complaints. ALLERGIES Allergies Allergen Reactions ??? Depakote [Valproic Acid] Nausea and Vomiting ??? Ritalin [Methylphenidate] Unknown ??? Zyprexa [Olanzapine] Unknown CURRENT MEDICATIONS Current Outpatient Medications Medication Sig ??? amoxicillin-clavulanate (AUGMENTIN) 875-125 MG tablet Take 1 tablet (875 mg total) by mouth 2 (two) times daily for 10 days. ??? lamoTRIgine 25 MG tablet Take 25 mg by mouth 2 (two) times daily. PAST MEDICAL HISTORY Past Medical History: Diagnosis Date ??? Bipolar 1 disorder ([facility]) SURGICAL HISTORY History reviewed. No pertinent surgical history. SOCIAL HISTORY Social History Socioeconomic History ??? Marital status: Unknown Spouse name: Not on file ??? Number of children: Not on file ??? Years of education: Not on file ??? Highest education level: Not on file Occupational History ??? Not on file Tobacco Use ??? Smoking status: Current Every Day Smoker Packs/day: 1.00 Types: Cigarettes ??? Smokeless tobacco: Never Used Vaping Use ??? Vaping Use: Never used Substance and Sexual Activity ??? Alcohol use: Never ??? Drug use: Never ??? Sexual activity: Not on file Other Topics Concern ??? Not on file Social History Narrative ??? Not on file Social Determinants of Health Financial Resource Strain: Not on file Food Insecurity: Not on file Transportation Needs: Not on file Physical Activity: Not on file Stress: Not on file Social Connections: Not on file Intimate Partner Violence: Not on file FAMILY HISTORY Family History Problem Relation Name Age of Onset ??? Seizures Mother ??? Crohns Disease Mother ??? Psoriasis Father ??? Psoriasis Sister ??? No Known Problems Brother REVIEW OF SYSTEMS Review of Systems All other ROS negative unless noted above in HPI. PHYSICAL EXAM Physical Exam Filed Vitals: 04/21/21 0922 BP: 131/82 Pulse: 84 Resp: 16 Temp: 98.2 ??F (36.8 ??C) TempSrc: Oral SpO2: 100% Weight: 72.2 kg (159 lb 4 oz) Height: 5' 11 (1.803 m) The patient is a well developed and well nourished adult male in no distress, alert and oriented. HEENT: PERRL, EOMI Nose without drainage but there is frontal and maxillary sinus tenderness Throat without lesions, mucous membranes moist NECK: Supple without adenopathy or rigidity CHEST: Lungs clear and equal to auscultation EXT: No clubbing, cyanosis, edema NEURO: CN II-XII intact, no focal weakness EKG RADIOLOGY No orders to display LABS Results for orders placed or performed during the hospital encounter of 04/21/21 CORONAVIRUS (COVID-19) ANTIGEN DIRECT OPTICAL Specimen: NASAL Result Value Ref Range CORONAVIRUS ANTIGEN IA NEGATIVE NEGATIVE Specimen Type NASAL FIRST TEST NO EMPLOYED IN HEALTHCARE NO SYMPTOMATIC DEFINED BY CDC YES DATE OF SYMPTOM ONSET [id number] HOSPITALIZATION STATUS NO RESIDENT OF [facility] NO ED MEDICATIONS Medications - No data to display PROCEDURES Procedures CONSULTS: ED COURSE & MEDICAL DECISION MAKING MDM Covid test is negative. Because of the duration of symptoms smoking history and purulent sputum this is likely bacterial infection we will go ahead therefore treat with antibiotic recommend follow-upwith his primary care provider if not improving. FINAL IMPRESSION SNOMED CT(R) 1. Bacterial sinusitis BACTERIAL SINUSITIS Recheck with your primary care provider if not improving over the next several days. New Prescriptions AMOXICILLIN-CLAVULANATE (AUGMENTIN) 875-125 MG TABLET Take 1 tablet (875 mg total) by mouth 2 (two)times daily for 10 days. Kevin Hernandez MD 04/21/21 0957 FILTER CLOTH CHANGER documented in this encounter Plan of Treatment Not on file documented as of this encounter Procedures Procedure Name Priority Date/Time Associated Diagnosis Comments CORONAVIRUS (COVID-19) ANTIGEN DIRECT OPTICAL STAT 04/21/2021 9:32 AM MASH FILTER CLOTH CHANGER documented in this encounter Results * CORONAVIRUS (COVID-19) ANTIGEN DIRECT OPTICAL (04/21/2021 9:32 AM MASH FILTER CLOTH CHANGER) CORONAVIRUS ANTIGEN IA NEGATIVE NEGATIVE 04/21/2021 9:55 AM MASH FILTER CLOTH CHANGER [facility] Comment: NEGATIVE RESULTS DO NOT RULE OUT SARS-COV-2 INFECTION AND SHOULD NOT BE USED THE SOLE BASIS FOR TREATMENT OR PATIENT MANAGEMENT DECISIONS, INCLUDING INFECTION CONTROL DECISIONS. NEGATIVE RESULTS SHOULD BE CONSIDERED IN THE CONTEXT OF A PATIENT'S RECENT EXPOSURES, HISTORY AND THE PRESENCE OF CLINICAL SIGNS AND SYMPTOMS CONSISTENT WITH COVID 19. THIS TEST HAS BEEN AUTHORIZED BY THE FDA UNDER AN EMERGENCY USE AUTHORIZATION (EUA) FOR USE BY AUTHORIZED LABORATORIES. SPECIMEN TYPE NASAL 04/21/2021 9:35 AM MASH FILTER CLOTH CHANGER [facility] FIRST TEST NO 04/21/2021 9:35 AM MASH FILTER CLOTH CHANGER [facility] EMPLOYED IN HEALTHCARE NO 04/21/2021 9:35 AM MASH FILTER CLOTH CHANGER [facility] SYMPTOMATIC DEFINED BY CDC YES 04/21/2021 9:35 AM MASH FILTER CLOTH CHANGER [facility] DATE OF SYMPTOM ONSET 2021040704/21/2021 9:35 AM MASH FILTER CLOTH CHANGER [facility] HOSPITALIZATION STATUS NO 04/21/2021 9:35 AM MASH FILTER CLOTH CHANGER [facility] RESIDENT OF [facility] NO 04/21/2021 9:35 AM MASH FILTER CLOTH CHANGER [facility] Specimen from nose (specimen) NASAL STRUCTURE / Unknown 04/21/2021 9:32 AM MASH FILTER CLOTH CHANGER Kevin Hernandez MD MICROBIOLOGY - GENERAL ORDERA BLES Final Result [facility] [address] [place] [address], documented in this encounter Visit Diagnoses Diagnosis Bacterial sinusitis- Primary Unspecified sinusitis (chronic) documented in this encounter Additional Health Concerns Infection Onset Date Last Indicated Resolved Time MRSA Comment:09/18/20 Left Leg (RG) 09/20/2020 07/15/2023 COVID-19 Rule Out 04/21/2021 04/21/2021 04/21/2021 9:55 AM MASH FILTER CLOTH CHANGER documented as of this encounter Care Teams Wall Man Relationship Specialty Start Date End Date None, Provider, PCP - General 07/17/20 12/22/21 documented as of this encounter
--- OUTSIDE RECORDS SUMMARY | 2024-02-28 13:27 | XMS_ITS | Encounter Summary ---
Author Organization [facility] Address [address] [place] [address]. [place], [place] [address] [place] [address] Care Team Providers Care Food Service Specialist Name Role Phone None, Provider Primary Care Provider Unavaila ble Encounter Details Date Type Department Care Team (Latest Contact Info) Description 09/18/2020 Travel Social History Tobacco Use Types Packs/Day [...] Exposure Response Date Recorded In the last month, have you been in contact with someone who was confirmed or suspected to have Coronavirus / COVID-19? No / Unsure 09/18/2020 1:37 AM CDT documented as of this encounter Plan of Treatment Not on file documented as of this encounter Visit Diagnoses Not on filedocumented in this encounter Care Teams Food Service Specialist Relationship Specialty Start Date End Date None, Provider, PCP - General 07/17/20 12/22/21 documented as of this encounter
--- OUTSIDE RECORDS SUMMARY | 2024-02-28 13:27 | XMS_ITS | Encounter Summary ---
Author Organization [facility] Address [address] [place] [address]. [place], [place] [id number] [place] [address] Care Team Providers Care Wood Heel Back Liner Name Role Phone Hugo Robbins MD Primary Care Provider [phone] Encounter Details Date Type Department Care Team (Latest Contact Info) Description 07/14/2023 Travel Social History Tobacco Use Types Packs/Day Years Used Date Smoking Tobacco: Every Day Cigarettes Smokeless Tobacco: Never Alcohol Use Standard Drinks/Week Comments Never 0 (1 standard drink = 0.6 oz pur e alcohol) [facility] Utilities Answer Date Recorded In the past 12 months has [email or web address], gas, oil, or water [employer] threatened to shut off services in your [...] No 07/14/2023 Housing Stability Vital Sign Answer [place] Recorded In the last 12 months, was t here a time when you were not able to pay the mortgage or rent on time? No 07/14/2023 In the past 12 months, how m any times have you moved where you were living? 1 07/14/2023 At any time in the past 12 m [facility], were you homeless or living in a [place] facility (including now)? No 07/14/2023 Sex and Gender Information Value Date Recorded Sex Assigned at Not on file Legal Sex Male 4:56 PM CDT Gender Identity Not on file Sexual Orientation Not on file documented as of this encounter Functional Status * Question Answer [...] office or shopping? No 07/14/2023 5:27 PM DHEERAJT Marisel Harris RN Acti ve * Are [...] PM DHEERAJT Marisel Harris RN Active * Because of [...] or making decisions? No 07/14/2023 5:27 PM Marisel Flood RN Active * Because of a physical, mental, or emotional condition, do you have serious difficulty concentrating, remembering, or making decisions? Answer Entry Date Author Status No 07/14/2023 5:27 PM Marisel Flood RN Active documented in this encounter Plan of Treatment Not on file documented as of this encounter Visit Diagnoses Not on filedocumented in this encounter Additional Health Concerns Infection Onset Date Last Indicated Resolved Time MRSA Comment:09/18/20 Left Leg (RG) 09/20/2020 07/15/2023 documented as of this encounter Care Teams Wood Heel Back Liner Relationship Specialty Start Date End Date Hugo Robbins MD [address] [place] [address] PCP - General FAMILY PRACTICE 12/23/21 07/14/23 documented as of this encounter
--- OUTSIDE RECORDS SUMMARY | 2024-02-28 13:27 | XMS_ITS | Clinical Summary ---
Author Organization [facility] Address [facility]. [place], [place] [id number] [place] [id number] Care Team Providers Care Casing Soaker Name Role Phone Konstantin Licona MD Primary Care Provider [phone] Allergies Active Allergy Reactions Criticality Noted Date Comments Valproic Acid Nausea and Vomiting 04/21/2021 Methylphenidate Unknown 04/21/2021 Olanzapine Unknown 04/21/2021 Medications lamoTRIgine (LAMICTAL) 150 MG tablet Take 1 tablet (150 mg total) by mouth daily. Active Active Problems Problem Noted Date Diagnosed Date Cellulitis 07/14/2023 Family History Medical History Relation Comments No Known Problems Brother Psoriasis Father Crohns Disease Mother Seizures Mother Psoriasis Sister Relation Status Comments Brother Alive Father Alive Mother Alive Sister Alive Social History Tobacco Use Types Packs/Day Years Used Date Smoking Tobacco: Every Day Cigarettes Smokeless Tobacco: Never Alcohol Use Standard Drinks/Week Comments Never 0 (1 standard drink = 0.6 oz pur e alcohol) [facility] Utilities Answer Date Recorded In the past 12 months has e [employer], oil, or water [employer] threatened to shut off services in your [...] any time in the past 12 m [facility], were you homeless or living in a [place] health care facility (including now)? No 07/14/2023 Sex and Gender Information Value Date Recorded Sex Assigned at Not on file Legal Sex Male 4:56 PM CDT Gender Identity Not on file Sexual Orientation Not on file Last Filed Vital Signs Vital Sign Reading [...] Mass Index 21.95 07/14/2023 5:29 PM CDT Plan of Treatment Health Maintenance Due Date Last Done Comments Annual Physical 1993 Pneumococcal Vaccine: Pediatrics (0 to 5 Years) and At-Risk Patients (6 to 64 Years) (1 of 2 - PCV) 1996 Hepatitis B Vaccines (1 of 3 - 19+ 3-dose series) 2009 COVID-19 Vaccine (2 - season) 2023 08/25/2020 Influenza Adult (#1) 2023 03/25/2015 DTaP, Tdap and Td Vaccines (2 - Td or Tdap) 02/02/2030 02/03/2020, 11/22/1994, 04/08/1994, Additional history exists Hepatitis C Completed 12/23/2021 HPV Vaccines Aged Out No longer eligi ble based on patient's age to complete this topic Meningococcal Vaccine Aged Out No olimpia gillian eligible based on patient's age to complete this topic RSV Immunizations Under 20 Months Aged Out No longer eligible based on patient's age to complete this topic Procedures Procedure Name Priority Date/Time Associated Diagnosis Comments HEPATITIS PANEL,ACUTE STAT 12/23/2021 5:50 PM CDT from Last 3 Months or Most Recently Relevant to Health Maintenance Results * HEPATITIS PANEL,ACUTE (12/23/2021 5:50 PM CDT) HEPATITIS B SURFACE AG NON-REACT THAD NON-REACT THAD 12/24/2021 1:16 PM CDT [facility] Comment:HBsAg NOT DETECTED. HEP B CORE IGM NON-REACT THAD NON-REACT THAD 12/24/2021 1:16 PM CDT [facility] Comment: IgM ANTI HBc NOT DETECTED. DOES NOT EXCLUDE THE POSSIBILITY OF EXPOSURE TO OR INFECTION WITH HBV. NO RETEST REQUIRED. HIGH DOSES OF BIOTIN MAY INTERFERE WITH THIS TEST RESULT. CORRELATION TO CLINICAL HISTORY AND PRESENTATION RECOMMENDED. HAV IGM NON-REACT THAD NON-REACT THAD 12/24/2021 1:16 PM CDT [facility] Comment: IgM ANTI HAV NOT DETECTED. DOES NOT EXCLUDE THE POSSIBILITY OF EXPOSURE TO OR INFECTION WITH HAV. LEVELS OF IgM ANTI HAV MAY BE BELOW THE CUTOFF IN EARLY INFECTION. HEPATITIS C AB NON-REACT THAD NON-REACT THAD 12/24/2021 1:16 PM CDT [facility] Comment: ANTIBODIES TO HCV NOT DETECTED. DOES NOT EXCLUDE THE POSSIBILITY OF EXPOSURE TO HCV. 12/23/2021 5:50 PM CDT us July Rojo MD LABORATORY Final Res ult [facility] [address] [place] [address], [id number] from Last 3 Months or Most Recently Relevant to Health Maintenance Additional Health Concerns Infection Onset Date Last Indicated MRSA Comment:09/18/20 Left Leg (RG) 09/20/2020 07/15/2023 Insurance MEDICARE Advance Directives * Full Code (Latest Code Status on File) Date Activated Date Inactivated Comments 07/14/2023 5:50 PM 07/15/2023 2:08 PM Care Teams Casing Soaker Relationship Specialty Start Date End Date Konstantin Licona MD [address] [place] [id number] PCP - General INTERNAL MEDICINE 07/15/23
--- OUTSIDE RECORDS SUMMARY | 2024-02-28 13:27 | XMS_ITS | Encounter Summary ---
Author Organization [facility] Address [address] [place] [address]. [place] [address] [place] [address] Care Team Providers Care Forms Analyst Name Role Phone None, Provider Primary Care Provider Unavaila ble Reason for Visit * Reason Comments Vomiting Encounter Details Date Type Department Care Team (Late st Contact Info) Description 07/17/2020 5:19 PM CDT - 07/17/2020 5:50 PM CDT Emergency [facility] [address] [place] [address] [place] [address] Maico Vergara, DO [address] [place] [address] Vomiting Discharge Disposition: Home or Self Care (Routine [...] have Coronavirus / COVID-19? No / Unsure 07/17/2020 5:15 PM CDT documented as of this encounter Last Filed Vital Signs Vital Sign Reading Time Taken Comments Blood Pressure 113/61 07/17/2020 5:17 PM CDT Pulse 77 07/17/2020 5:17 PM CDT Temperature 36.7 ??C (98 ??F) 07/17/2020 5:17 PM CDT Respiratory Rate 18 07/17/2020 5:17 PM CDT Oxygen Saturation 100% 07/17/2020 5:17 PM CDT Inhaled Oxygen Concentration - - Weight 76.7 kg (169 lb) 07/17/2020 5:17 PM CDT Height 180.3 cm (5' 11 ) 07/17/2020 5:17 PM CDT Body Mass Index 23.57 07/17/2020 5:17 PM CDT documented in this encounter ED Notes * Maico Vergara DO - 07/17/2020 5:41 PM CDT Chief Complaint Chief Complaint Patient presents with ??? Vomiting History of Present Illness Patient left without being seen. Medical History ALLERGIES: No Known Allergies MEDICATIONS: Prior to Admission medications Not on File PAST MEDICAL HISTORY: Past Medical History: Diagnosis Date ??? Bipolar 1 disorder (CMS/HCC) PAST SURGICAL HISTORY: History reviewed. No pertinent surgical history. FAMILY HISTORY: No family history on file. SOCIAL HISTORY: Social History Tobacco Use ??? Smoking status: Current Every Day Smoker Packs/day: 1.00 Types: Cigarettes ??? Smokeless tobacco: Never Used Substance Use Topics ??? Alcohol use: Never ??? Drug use: Never Review of Systems Review of Systems Physical Exam Filed Vitals: 07/17/20 1717 BP: 113/61 Pulse: 77 Resp: 18 Temp: 98 ??F (36.7 ??C) TempSrc: Oral SpO2: 100% Weight: 76.7 kg (169 lb) Height: 5' 11 (1.803 m) Physical Exam Diagnostic Studies / Procedures ELECTROCARDIOGRAMS: No results found for this visit on 07/17/20. LABORATORY STUDIES: No results found for this visit on 07/17/20. IMAGING STUDIES No orders to display ED Course / Medical Decision Making Clinical Impression None Disposition: LWBS after Triage Maico Vergara DO 07/18/20 0635 * Uzma Mc RN - 07/17/2020 5:15 PM CDT Pt here with c/o cough, congestion and post nasal drip. Was not able to work today and employee hasrequested a work excuse. Pt report mucous and cough seem to induce vomiting-this has happened twicein the past two days. mucinex DM not helping much. documented in this encounter Plan of Treatment Not on file documented as of this encounter Visit Diagnoses Not on filedocumented in this encounter Care Teams Forms Analyst Relationship Specialty Start Date End Date None, Provider, PCP - General 07/17/20 12/22/21 documented as of this encounter
--- OUTSIDE RECORDS SUMMARY | 2024-02-28 13:27 | XMS_ITS | Encounter Summary ---
Author Organization [facility] Address [address] [place] [address]. [place], [place] [id number] [place] [id number] Care Team Providers Care Coin Purse Assembler Name Role Phone Hugo Robbins MD Primary Care Provider [phone]- [phone] Reason for Referral * Imaging (Urgent) - Pending Review Specialty Diagnoses / Procedures Referred By Amrik aguirre Referred To Contact RADIOLOGY Procedures CT ABD+PEL W CON Best Álvarez MD [address] [place] [address] Phone: tel: fax: Referral ID Status Reason Start Date Expiration Date V isits Requested Visits Authorized [id number] Pending Review 04/08/2023 04/08/2024 1 1 ER BALL ASSEMBLER Reason for Visit * Reason Comments Vomiting Encounter Details Date Type Department Care Team (Late st Contact Info) Description 04/08/2023 10:44 AM SOCCER BALL ASSEMBLER - 04/08/2023 1:36 PM SOCCER BALL ASSEMBLER Emergency [facility] [address] [place] [address] [place] [address] Best Álvarez MD [address] [place] [id number] Vomiting Discharge Disposition: Home or Self Care [...] Sign Reading Time Taken Comments Blood Pressure 110/78 04/08/2023 10:45 AM SOCCER BALL ASSEMBLER Pulse 77 04/08/2023 10:58 AM SOCCER BALL ASSEMBLER Temperature 37.7 ??C (99.8 ??F) 04/08/2023 1:28 PM CS T Respiratory Rate 18 04/08/2023 10:57 AM SOCCER BALL ASSEMBLER Oxygen Saturation 97% 04/08/2023 10:45 AM SOCCER BALL ASSEMBLER Inhaled Oxygen Concentration - - Weight 72.6 kg (160 lb) 04/08/2023 10:56 AM SOCCER BALL ASSEMBLER Height 180.3 cm (5' 11 ) 04/08/2023 10:56 AM SOCCER BALL ASSEMBLER Body Mass Index 22.32 04/08/2023 10:56 AM SOCCER BALL ASSEMBLER documented in this encounter Discharge Instructions * Discharge Instructions* Best Álvarez MD - 04/08/2023 11:10 AM SOCCER BALL ASSEMBLER Return if still vomiting at midnight or belly pain worse or pain in the genitalia ER BALL ASSEMBLER ER BALL ASSEMBLER * Attachments The following attachments cannot be sent through Care Everywhere. * Nausea and Vomiting Discharge Instructions, Adult (Faroese) * Viral Gastroenteritis Discharge Instructions, Adult (Faroese) documented in this encounter Medications at Time of Discharge lamoTRIgine (LAMICTAL) 150 MG tablet Take 1 tablet (150 mg total) by mouth daily. ondansetron (ZOFRAN-ODT) 4 MG disintegrating tablet Take 1 tablet (4 mg total) by mouth every 8 (eight) hours as needed for Nausea. 12 tablet 04/08/2023 4 documented as of this encounter ED Notes * Best Álvarez MD - 04/08/2023 1:36 PM CST Chief Complaint Chief Complaint Patient presents with Vomiting History of Present Illness 32-year-old male complaining of vomiting starting last night. Patient also complains of sore throatafter vomiting. Patient complains of generalized weakness. Patient complains of generalized bodyaches. Patient denies diarrhea. Patient complains of mild cough. Patient did not know if he ate any badfood yesterday. Symptoms are constant. Medical History ALLERGIES: Review of patient's allergies indicates: Allergen Reactions Depakote [Valproic Acid] Nausea and Vomiting Ritalin [Methylphenidate] Unknown Zyprexa [Olanzapine] Unknown MEDICATIONS: Prior to Admission medications Medication Sig Start Date End Date Taking? Authorizing Provider lamoTRIgine 25 MG tablet Take 1 tablet (25 mg total) by mouth 2 (two) times daily. Yes Doc [facility] ondansetron (ZOFRAN-ODT) 4 MG disintegrating tablet Take 1 tablet (4 mg total) by mouth every 8 (eight) hours as needed for Nausea. 04/08/23 Yes Best Álvarez MD PAST MEDICAL HISTORY: Past Medical History: Diagnosis Date Bipolar 1 disorder ([facility]) ([facility]) PAST SURGICAL HISTORY: History reviewed. No pertinent surgical history. FAMILY HISTORY: Family History Problem Relation Name Age of Onset Seizures Mother Crohns Disease Mother Psoriasis Father Psoriasis Sister No Known Problems Brother SOCIAL HISTORY: Social History Tobacco Use Smoking status: Every Day Packs/day: 1 Types: Cigarettes Smokeless tobacco: Never Vaping Use Vaping Use: Never used Substance Use Topics Alcohol use: Never Drug use: Never Review of Systems Review of Systems Constitutional: Negative for chills and fever. HENT: Negative for voice change. Eyes: Negative for discharge. Respiratory: Negative for wheezing. Cardiovascular: Negative for leg swelling. Gastrointestinal: Positive for abdominal pain and vomiting. Negative for diarrhea. Skin: Negative for color change. Neurological: Negative for speech difficulty. Psychiatric/Behavioral: Negative for agitation. All other systems reviewed and are negative. Physical Exam Filed Vitals: 04/08/23 1056 04/08/23 1057 04/08/23 1058 04/08/23 1328 BP: Pulse: 77 Resp: 18 Temp: 98.9 ??F (37.2 ??C) 99.8 ??F (37.7 ??C) TempSrc: Tympanic Tympanic SpO2: Weight: 72.6 kg (160 lb) Height: 1.803 m (5' 11 ) Physical Exam Constitutional: General: He is not in acute distress. Appearance: Normal appearance. He is well-developed. He is not ill-appearing or toxic-appearing. HENT: Head: Atraumatic. Mouth/Throat: Pharynx: Oropharynx is clear. Neck: Comments: Normal inspection Cardiovascular: Rate and Rhythm: Normal rate and regular rhythm. Heart sounds: No murmur heard. Pulmonary: Effort: No respiratory distress. Breath sounds: Normal breath sounds. No stridor. No wheezing. Abdominal: Palpations: There is no mass. Tenderness: There is abdominal tenderness. There is no rebound. Comments: Tender in the left upper quadrant and periumbilical area Musculoskeletal: General: Normal range of motion. Right lower leg: No edema. Left lower leg: No edema. Skin: General: Skin is dry. Neurological: General: No focal deficit present. Mental Status: He is alert. Psychiatric: Mood and Affect: Mood normal. Diagnostic Studies / Procedures ELECTROCARDIOGRAMS: No results found for this visit on 04/08/23. LABORATORY STUDIES: Results for orders placed or performed during the hospital encounter of 04/08/23 CBC W/DIFF AUTOMATED Result Value Ref Range WBC 14.87 (H) 4.00 - 10.80 x10'3/uL RBC 5.62 4.50 - 6.10 x10'6/uL HGB 16.1 13.0 - 18.0 G/DL HCT 47.5 37.0 - 52.0 % MCV 84.5 78.0 - 100.0 FL MCH 28.6 27.0 - 31.0 PG MCHC 33.9 33.0 - 36.0 G/DL RDW 12.3 11.5 - 14.5 % PLT 213 150 - 350 x10'3/uL MPV 9.7 7.4 - 10.4 FL CBC COMMENT NORMAL REFERENCE RANGE NOT ESTABLISHED FOR THE PROPORTIONAL LEUKOCYTE DIFFERENTIAL. NEUTROPHILS 89.7 % LYMPHOCYTES 4.6 % MONOCYTES 4.9 % EOSINOPHILS 0.2 % BASOPHILS 0.3 % IMMATURE GRANS 0.3 % NRBC 0.0 % ABS. NEUTROPHILS 13.32 (H) 1.60 - 8.30 x10'3/uL ABS. LYMPHOCYTES 0.69 (L) 0.80 - 4.70 x10'3/uL ABS. MONOCYTES 0.73 0.00 - 1.50 x10'3/uL ABS. EOSINOPHILS 0.03 0.00 - 0.40 x10'3/uL ABS. BASOPHILS 0.05 0.00 - 0.20 x10'3/uL ABS. IMMATURE GRANULOCYTES 0.05 (H) 0.00 - 0.03 x10'3/uL ABS. NUCLEATED RBC'S 0.00 0.00 x10'3/uL COMPREHENSIVE METABOLIC PANEL Result Value Ref Range SODIUM S/P/B 138 136 - 145 MMOL/L POTASSIUM S/P/B 3.9 3.5 - 5.1 MMOL/L CHLORIDE S/P/B 101 98 - 107 MMOL/L CO2 28.6 21.0 - 32.0 MMOL/L GLUCOSE 99 70 - 99 MG/DL BUN 24 6 - 24 MG/DL CREATININE S/P/B 1.06 0.70 - 1.30 MG/DL CALCIUM S/P/B 9.0 8.4 - 10.5 MG/DL BILIRUBIN TOTAL S/P/B 1.2 (H) 0.2 - 1.0 MG/DL ALKALINE PHOSPHATASE S/P/B 82 45 - 115 U/L AST 17 15 - 37 U/L ALT 26 16 - 63 U/L TOTAL PROTEIN S/P/B 7.2 6.4 - 8.2 G/DL ALBUMIN S/P/B 3.9 3.4 - 5.0 G/DL ANION GAP 8.4 5.0 - 15.0 MMOL/L OSMOLALITY (CALC) 290 MOSM/KG GFR ESTIMATE >90 >89 ML/MIN/1.73 M2 GFR NOTES GFR REFERENCES: LIPASE Result Value Ref Range LIPASE 16 16 - 77 UNITS/L URINALYSIS Result Value Ref Range COLOR (U) YELLOW TRANSPARENCY CLEAR SPECIFIC GRAVITY (U) 1.020 1.000 - 1.025 U PH 6.5 5.0 - 8.0 LEUKOCYTES (U) NEGATIVE NEGATIVE NITRITES NEGATIVE NEGATIVE PROTEIN RANDOM (U) NEGATIVE NEGATIVE GLUCOSE (U) NEGATIVE NEGATIVE KETONES (U) TRACE (A) NEGATIVE UROBILINOGEN 1.0 (H) <1.0 EU/DL BLOOD (U) NEGATIVE NEGATIVE WBC/HPF 0-5 0 - 5 /HPF BILIRUBIN CONF ICTO (U) [employer] UNABLE TO PERFORM NEGATIVE DIRECT BILIRUBIN Result Value Ref Range BILIRUBIN DIRECT S/P/B 0.2 0.0 - 0.2 MG/DL INFLUENZA A & B Specimen: NASAL Result Value Ref Range SPECIMEN TYPE (INFLUENZA) NASAL INFLUENZA A NEGATIVE NEGATIVE INFLUENZA B NEGATIVE NEGATIVE CORONAVIRUS (COVID-19) ANTIGEN DIRECT OPTICAL Specimen: NASAL Result Value Ref Range CORONAVIRUS ANTIGEN IA NEGATIVE NEGATIVE Specimen Type NASAL RAPID STREP A Specimen: THROAT Result Value Ref Range SPECIMEN SOURCE THROAT RAPID STREP TEST NEGATIVE NEGATIVE IMAGING STUDIES CT ABD+PEL W CON Final Result by User, [id number] (04/08 1240) Procedure(s): CT ABD+PEL W CON Date of service: 04/08/2023 12:04 PM Provided clinical information: 32 years, Male, Nausea/vomiting RLQ abdominal pain (Age >= 14y) Procedure and materials: Helical images of the abdomen and pelvis are obtained from superior to the diaphragm to inferior to the pubic symphysis. Images obtained after intravenous contrast. 100 mL Isovue-370. A dose lowering technique was used for this procedure, which may include, but is not limited to, dose reduction technique, automated exposure control, iterative reconstruction, ALARA (As Low As Reasonably Achievable), or Image Gently techniques. Comparison studies: None. Observations: CT abdomen and pelvis: Lung Bases: No pleural effusions or consolidations. Adrenals:Unremarkable Spleen:No splenomegaly. 2 small accessory splenules are present. Gallbladder and Biliary system:Mild gallbladder distention is present. No pericholecystic inflammatory changes. Pancreas:Unremarkable Liver:Unremarkable Kidneys:Unremarkable. Bowel:Moderate amount of fecal material is present in the colon. No periappendiceal inflammatory changes are present. Appendix is approximately 5.5 mm. In the left upper quadrant there are fluid-filled loops of small bowel that are present with air-fluid levels are present. The small bowel measures 2.7 to 3.2 cm in dimension. This could relate to an area of ileus or early obstructive changes involving the small bowel. The distal small bowel is decompressed. Aorta and Retroperitoneum:Aorta is not aneurysmal.No enlarged lymph nodes. Pelvic Organs:Urinary bladder wall is diffusely thickened but it is also incompletely distended. Prostate is not enlarged. Bone/Musculoskeletal: No aggressive osseous lesions. Free fluid: None IMPRESSION: There are a few dilated loops of small bowel are present in left upper quadrant. This could relate to changes of ileus or early obstructive changes. Clinical correlation recommended. Urinary bladder wall is thickened but the bladder is incompletely distended. Clinical correlation. Referred By: Interpreted By: Michael Calderon MD, 04/08/2023 12:34 PM ED Course / Medical Decision Making Medical Decision Making Patient felt better after IV fluids and Zofran. Patient able to keep down fluids prior to dischargeat 1:20 PM therefore doubt ileus or small bowel obstruction. Patient will be given a work note. CT of the abdomen obtained due to elevated white count and high Jiménez score. Zofran ODT if vomiting recurrent. Amount and/or Complexity of Data Reviewed Labs: ordered. Radiology: ordered. Risk Prescription drug management. Clinical Impression Gastroenteritis (Primary) Disposition: Discharge Best Álvarez MD 04/09/23318 Best Álvarez MD 04/09/23319 ER BALL ASSEMBLER ER BALL ASSEMBLER * Camille Phillips RN - 04/08/2023 1:03 PM CST Pt given ice chips. ER BALL ASSEMBLER * Raeann Daniel RN - 04/08/2023 10:49 AM CST Patient amb to ED with c/o vomiting and general body aches starting last night. No meds taken priorto arrival. Throat also sore. ER BALL ASSEMBLER documented in this encounter Plan of Treatment Not on file documented as of this encounter Procedures Procedure Name Priority Date/Time Associated Diagnosis Comments CT ABD+PEL W CON STAT 04/08/2023 12:0 4 PM SOCCER BALL ASSEMBLER HC URINALYSIS AUTO W/MICRO STAT 04/08/2023 11:57 AM SOCCER BALL ASSEMBLER COMPREHENSIVE METABOLIC PANEL STAT 04/08/2023 11:20 AM SOCCER BALL ASSEMBLER CBC W/DIFF AUTOMATED STAT 04/08/2023 11:20 AM SOCCER BALL ASSEMBLER LIPASE STAT 04/08/2023 11:20 AM SOCCER BALL ASSEMBLER CORONAVIRUS (COVID-19) ANTIGEN DIRECT OPTICAL STAT 04/08/2023 11:19 AM SOCCER BALL ASSEMBLER RAPID STREP A STAT 04/08/2023 11:19 AM SOCCER BALL ASSEMBLER INFLUENZA A & B STAT 04/08/2023 11:19 AM SOCCER BALL ASSEMBLER DIRECT BILIRUBIN STAT 04/08/2023 11:1 9 AM SOCCER BALL ASSEMBLER documented in this encounter Results * CT ABD+PEL W CON (04/08/2023 12:04 PM SOCCER BALL ASSEMBLER) Anatomical Region Laterality Modality Abdomen Computed Tomogra phy 04/08/2023 12:3 4 PM SOCCER BALL ASSEMBLER Impressions 04/08/2023 12:39 PM SOCCER BALL ASSEMBLER IMPRESSION: There are a few dilated loops of small bowel are present in left upper quadrant. ??This could relate to changes of ileus or early obstructive changes. ??Clinical correlation recommended. Urinary bladder wall is thickened but the bladder is incompletely distended. ??Clinical correlation. Referred By: ?? Interpreted By: Michael Calderon MD, 04/08/2023 12:34 PM Narrative 04/08/2023 12:39 PM SOCCER BALL ASSEMBLER Procedure(s): CT ABD+PEL W CON Date of service: 04/08/2023 12:04 PM Provided clinical information: 32 years, Male, Nausea/vomiting RLQ abdominal pain (Age >= 14y) Procedure and materials: Helical images of the abdomen and pelvis are obtained from superior to the diaphragm to inferior to the pubic symphysis. ??Images obtained after intravenous contrast. ??100 mL Isovue-370. A dose lowering technique was used for this procedure, which may include, but is not limited to, dose reduction technique, automated exposure control, iterative reconstruction, ALARA (As Low As Reasonably Achievable), or Image Gently techniques. Comparison studies: None. Observations: ?? CT abdomen and pelvis: Lung Bases: No pleural effusions or consolidations. Adrenals:Unremarkable Spleen:No splenomegaly. ??2 small accessory splenules are present. Gallbladder and Biliary system:Mild gallbladder distention is present. ??No pericholecystic inflammatory changes. Pancreas:Unremarkable Liver:Unremarkable Kidneys:Unremarkable. Bowel:Moderate amount of fecal material is present in the colon. ??No periappendiceal inflammatory changes are present. ??Appendix is approximately 5.5 mm. ??In the left upper quadrant there are fluid-filled loops of small bowel that are present with air-fluid levels are present. ??The small bowel measures 2.7 to 3.2 cm in dimension. ??This could relate to an area of ileus or early obstructive changes involving the small bowel. ??The distal small bowel is decompressed. Aorta and Retroperitoneum:Aorta is not aneurysmal.No enlarged lymph nodes. Pelvic Organs:Urinary bladder wall is diffusely thickened but it is also incompletely distended. ??Prostate is not enlarged. Bone/Musculoskeletal: No aggressive osseous lesions. Free fluid: ??None Procedure Note Michael Calderon MD - 04/08/2023 Procedure(s): CT ABD+PEL W CON Date of service: 04/08/2023 12:04 PM Provided clinical information: 32 years, Male, Nausea/vomiting RLQ abdominal pain (Age >= 14y) Procedure and materials: Helical images of the abdomen and pelvis areobtained from superior to the diaphragm to inferior to the pubicsymphysis. Images obtained after intravenous contrast. 100 mLIsovue-370. A dose lowering technique was used for this procedure, which may include,but is not limited to, dose reduction technique, automated exposurecontrol, iterative reconstruction, ALARA (As Low As ReasonablyAchievable), or Image Gently techniques. Comparison studies: None. Observations: CT abdomen and pelvis: Lung Bases: No pleural effusions or consolidations. Adrenals:Unremarkable Spleen:No splenomegaly. 2 small accessory splenules are present. Gallbladder and Biliary system:Mild gallbladder distention is present. Nopericholecystic inflammatory changes. Pancreas:Unremarkable Liver:Unremarkable Kidneys:Unremarkable. Bowel:Moderate amount of fecal material is present in the colon. Noperiappendiceal inflammatory changes are present. Appendix isapproximately 5.5 mm. In the left upper quadrant there are fluid-filledloops of small bowel that are present with air- fluid levels are present.The small bowel measures 2.7 to 3.2 cm in dimension. This could relate pretty area of ileus or early obstructive changes involving the small bowel.The distal small bowel is decompressed. Aorta and Retroperitoneum:Aorta is not aneurysmal.No enlarged lymphnodes. Pelvic Organs:Urinary bladder wall is diffusely thickened but it is alsoincompletely distended. Prostate is not enlarged. Bone/Musculoskeletal: No aggressive osseous lesions. Free fluid: None IMPRESSION: There are a few dilated loops of small bowel are present in left upperquadrant. This could relate to changes of ileus or early obstructivechanges. Clinical correlation recommended. Urinary bladder wall is thickened but the bladder is incompletelydistended. Clinical correlation. Referred By: Interpreted By: Michael Calderon MD, 04/08/2023 12:34 PM Best Álvarez MD CT Final Result * (ABNORMAL) URINALYSIS (04/08/2023 11:57 AM SOCCER BALL ASSEMBLER) COLOR (U) YELLOW 04/08/2023 12:17 PM [facility] TRANSPARENCY CLEAR 04/08/2023 12:17 PM [facility] SPECIFIC GRAVITY (U) 1.020 1.000 - 1.025 04/08/2023 12:17 PM [facility] U PH 6.5 5.0 - 8.0 04/08/2023 12:17 PM [facility] LEUKOCYTES (U) NEGATIVE NEGATIVE 04/08/2023 12:17 PM [facility] NITRITES NEGATIVE NEGATIVE 04/08/2023 12:17 PM [facility] PROTEIN RANDOM (U) NEGATIVE NEGATIVE 04/08/2023 12:17 PM [facility] GLUCOSE (U) NEGATIVE NEGATIVE 04/08/2023 12:17 PM [facility] KETONES MG/DL (U) TRACE(A) NEGATIVE 04/08/2023 12:17 PM SOCCER BALL ASSEMBLER [facility] UROBILINOGEN 1.0(H) <1.0 EU/DL 04/08/2023 12:17 PM SOCCER BALL ASSEMBLER [facility] BLOOD (U) NEGATIVE NEGATIVE 04/08/2023 12:17 PM SOCCER BALL ASSEMBLER [facility] WBC/HPF 0-5 0 - 5 /HPF 04/08/2023 12:17 PM SOCCER BALL ASSEMBLER [facility] BILIRUBIN CONF ICTO (U) [employer] UNABLE TO PERFORM NEGATIVE 04/08/2023 12:17 PM SOCCER BALL ASSEMBLER [facility] URINE SPECIMEN OBTAINED BY CLEAN CATCH PROCEDURE / Unknown 04/08/2023 11:57 AM SOCCER BALL ASSEMBLER us Best Álvarez MD URINE ORDERABLES Final Result Performing Organization Address [facility]/ZIP Co de Phone Number [facility] [address] [place] [address], * LIPASE (04/08/2023 11:20 AM SOCCER BALL ASSEMBLER) LIPASE 16 16 - 77 UNITS/L 04/08/2023 11:51 AM SOCCER BALL ASSEMBLER [facility] 04/08/2023 11:2 0 AM SOCCER BALL ASSEMBLER us Best Álvarez MD LABORATORY Final Result Performing Organization Address [facility]/ZIP Co de Phone Number [facility] [address] [place] [address], * (ABNORMAL) COMPREHENSIVE METABOLIC PANEL (04/08/2023 11:20 AM SOCCER BALL ASSEMBLER) SODIUM S/P/B 138 136 - 145 MMOL/L 04/08/2023 11:51 AM SOCCER BALL ASSEMBLER [facility] POTASSIUM S/P/B 3.9 3.5 - 5.1 MMOL/L 04/08/2023 11:51 AM SOCCER BALL ASSEMBLER [facility] CHLORIDE S/P/B 101 98 - 107 MMOL/L 04/08/2023 11:51 AM [facility] CO2 28.6 21.0 - 32.0 MMOL/L 04/08/2023 11:51 AM [facility] GLUCOSE 99 70 - 99 MG/DL 04/08/2023 11:51 AM [facility] Comment: FASTING GLUCOSE 100 TO 125 MG/DL IS CONSISTENT WITH IMPAIRED FASTING GLUCOSE. FASTING GLUCOSE >125 MG/DL IS CONSISTENT WITH DIABETES. RANDOM GLUCOSE >200 MG/DL WITH HYPERGLYCEMIC SYMPTOMS IS CONSISTENT WITH DIABETES. PER ADA GUIDELINES BUN 24 6 - 24 MG/DL 04/08/2023 11:51 AM [facility] CREATININE S/P/B 1.06 0.70 - 1.30 MG/DL 04/08/2023 11:51 AM [facility] CALCIUM S/P/B 9.0 8.4 - 10.5 MG/DL 04/08/2023 11:51 AM [facility] BILIRUBIN TOTAL S/P/B 1.2(H) 0.2 - 1.0 MG/DL 04/08/2023 11:51 AM [facility] Comment: THIS ASSAY IS NOT RECOMMENDED FOR PATIENTS UNDERGOING TREATMENT WITH ELTROMBOPAG DUE TO THE POTENTIAL FOR FALSELY ELEVATED RESULTS. ALKALINE PHOSPHATASE S/P/B 82 45 - 115 U/L 04/08/2023 11:51 AM [facility] AST 17 15 - 37 U/L 04/08/2023 11:51 AM [facility] ALT 26 16 - 63 U/L 04/08/2023 11:51 AM [facility] TOTAL PROTEIN S/P/B 7.2 6.4 - 8.2 G/DL 04/08/2023 11:51 AM [facility] ALBUMIN S/P/B 3.9 3.4 - 5.0 G/DL 04/08/2023 11:51 AM [facility] ANION GAP 8.4 5.0 - 15.0 MMOL/L 04/08/2023 11:51 AM [facility] OSMOLALITY (CALC) 290 MOSM/KG 024 11:51 AM [facility] Comment:REFERENCE RANGE NOT ESTABLISHED GFR ESTIMATE >90 >89 ML/MIN/1. 73 M2 04/08/2023 11:51 AM [facility] GFR NOTES GFR REFERENCE S: 04/08/2023 11:51 AM [facility] Comment: THE ESTIMATED GFR IS CALCULATED [...] ml/min/1.73 m2 G5,KIDNEY FAILURE: <15 ml/min/1.73 m2 04/08/2023 11:2 0 AM SOCCER BALL ASSEMBLER Best Álvarez MD LABORATORY Final Result [facility] [address] [place] [address], * (ABNORMAL) CBC W/DIFF AUTOMATED (04/08/2023 11:20 AM SOCCER BALL ASSEMBLER) WBC 14.87(H) 4.00 - 10.80 x10'3/uL 04/08/2023 11:36 AM [facility] RBC 5.62 4.50 - 6.10 x10'6/uL 04/08/2023 11:36 AM [facility] HGB 16.1 13.0 - 18.0 G/DL 04/08/2023 11:36 AM [facility] HCT 47.5 37.0 - 52.0 % 04/08/2023 11:36 AM [facility] MCV 84.5 78.0 - 100.0 FL 04/08/2023 11:36 AM [facility] MCH 28.6 27.0 - 31.0 PG 04/08/2023 11:36 AM [facility] MCHC 33.9 33.0 - 36.0 G/DL 04/08/2023 11:36 AM [facility] RDW 12.3 11.5 - 14.5 % 04/08/2023 11:36 AM [facility] PLT 213 150 - 350 x10'3/uL 04/08/2023 11:36 AM [facility] MPV 9.7 7.4 - 10.4 FL 04/08/2023 11:36 AM [facility] CBC COMMENT NORMAL REFERENCE RANGE NOT ESTABLISHED FOR THE PROPORTIONAL LEUKOCYTE DIFFERENTIAL. 04/08/2023 11:36 AM [facility] NEUTROPHILS % 89.7 % 04/08/2023 11:36 AM [facility] LYMPHOCYTES % 4.6 % 04/08/2023 11:36 AM [facility] MONOCYTES % 4.9 % 04/08/2023 11:36 AM [facility] EOSINOPHILS % 0.2 % 04/08/2023 11:36 AM [facility] BASOPHILS % 0.3 % 04/08/2023 11:36 AM [facility] IMMATURE GRANS % 0.3 % 04/08/19 11:36 AM [facility] NRBC 0.0 % 04/08/2023 11:36 AM [facility] ABS. NEUTROPHILS 13.32(H) 1.60 - 8.30 x10'3/uL 04/08/2023 11:36 AM [facility] ABS. LYMPHOCYTES 0.69(L) 0.80 - 4.70 x10'3/uL 04/08/2023 11:36 AM [facility] ABS. MONOCYTES 0.73 0.00 - 1.50 x10'3/uL 04/08/2023 11:36 AM [facility] ABS. EOSINOPHILS 0.03 0.00 - 0.40 x10'3/uL 04/08/2023 11:36 AM [facility] ABS. BASOPHILS 0.05 0.00 - 0.20 x10'3/uL 04/08/2023 11:36 AM SOCCER BALL ASSEMBLER [facility] ABS. IMMATURE GRANULOCYTES 0.05(H) 0.00 - 0.03 x10'3/uL 04/08/2023 11:36 AM SOCCER BALL ASSEMBLER [facility] ABS. NUCLEATED RBC'S 0.00 0.00 x10'3/uL 04/08/2023 11:36 AM SOCCER BALL ASSEMBLER [facility] 04/08/2023 11:2 0 AM SOCCER BALL ASSEMBLER us Best Álvarez MD LABORATORY Final Result [address] [address], * DIRECT BILIRUBIN (04/08/2023 11:19 AM SOCCER BALL ASSEMBLER) BILIRUBIN DIRECT S/P/B 0.2 0.0 - 0.2 MG/DL 04/08/2023 12:06 PM SOCCER BALL ASSEMBLER [facility] 04/08/2023 11:1 9 AM SOCCER BALL ASSEMBLER us Best Álvarez MD LABORATORY Final Result Performing Organization Address [facility]/ZIP Co de Phone Number [address] [address], [place] [phone] * RAPID STREP A (04/08/2023 11:19 AM SOCCER BALL ASSEMBLER) SPECIMEN SOURCE THROAT 04/08/2023 11:14 AM SOCCER BALL ASSEMBLER [facility] RAPID STREP TEST NEGATIVE NEGATIVE 04/08/2023 12:00 PM SOCCER BALL ASSEMBLER [facility] STRUCTURE OF ANTERIOR PORTION OF NECK / Unknown 04/08/2023 11:19 AM SOCCER BALL ASSEMBLER us Best Álvarez MD MICROBIOLOGY - GENERAL ORDERABLE S Final Result Performing Organization Address City/[facility]/ZIP Co de Phone Number [address] [place] [address], * CORONAVIRUS (COVID-19) ANTIGEN DIRECT OPTICAL (04/08/2023 11:19 AM SOCCER BALL ASSEMBLER) CORONAVIRUS ANTIGEN IA NEGATIVE NEGATIVE 04/08/2023 12:00 PM SOCCER BALL ASSEMBLER [facility] Comment: NEGATIVE RESULTS DO NOT RULE [...] USE BY AUTHORIZED LABORATORIES. SPECIMEN TYPE NASAL 04/08/2023 11:14 AM SOCCER BALL ASSEMBLER [facility] NASAL NASAL STRUCTURE / Unknown 04/08/2023 11:19 AM SOCCER BALL ASSEMBLER us Best Álvarez MD MICROBIOLOGY - GENERAL ORDERABLE S Final Result [address] [address], * INFLUENZA A & B (04/08/2023 11:19 AM SOCCER BALL ASSEMBLER) Pathologist [facility] SPECIMEN TYPE (INFLUENZA) NASAL 04/08/2023 11:14 AM SOCCER BALL ASSEMBLER [facility] INFLUENZA A NEGATIVE NEGATIVE 04/08/2023 12:08 PM SOCCER BALL ASSEMBLER [facility] INFLUENZA B NEGATIVE NEGATIVE 04/08/2023 12:08 PM SOCCER BALL ASSEMBLER [facility] Comment: A NEGATIVE RESULT DOES NOT EXCLUDE INFLUENZA VIRUS INFECTION. ??IF INFLUENZA IS CIRCULATING IN YOUR COMMUNITY, A DIAGNOSIS OF INFLUENZA SHOULD BE CONSIDERED BASED ON A PATIENT'S CLINICAL PRESENTATION AND EMPIRIC ANTIVIRAL TREATMENT SHOULD BE CONSIDERED IF INDICATED. NASAL STRUCTURE / Unknown 04/08/2023 11:19 AM SOCCER BALL ASSEMBLER us Best Álvarez MD MICROBIOLOGY - GENERAL ORDERABLE S Final Result [facility] [address] [place] [id number], documented in this encounter Visit Diagnoses Diagnosis Gastroenteritis- Primary Other and unspecified noninfectious gastroenteritis and colitis documented in this encounter Administered Medications Inactive Administered Medications - up to 3 most recent administrations Medication Order MAR Action Action Date Dose Rate Site iopamidol (ISOVUE-370) 76 % injection 100 mL 100 mL, Intravenous, IMG once as needed, Contrast, 1 dose, Starting on 04/08/23 at 1204, Until 04/08/23 at 1204 Given 04/08/2023 12:04 PM SOCCER BALL ASSEMBLER 100 mLs ondansetron (ZOFRAN) injection 4 mg 4 mg, Intravenous, Once, 1 dose, On 04/08/23 at 1115, IV push over 2-5 minutes. Given 04/08/2023 11:22 AM SOCCER BALL ASSEMBLER 4 mg sodium chloride 0.9% bolus infusion 1,000 mL 1,000 mL, Intravenous, Administer over 15 Minutes, Once, 1 dose, On 04/08/23 at 1115 New Bag 04/08/2023 11:22 AM SOCCER BALL ASSEMBLER 1,000 mLs documented in this encounter Active and Recently Administered Medications Times are shown in SOCCER BALL ASSEMBLER. Scheduled Medication Order 04/06/2023 04/07/2023 04/08/2023 ondansetron (ZOFRAN) injection 4 mg (COMPLETED) 4 mg, Intravenous, Once, 1 dose, On 04/08/23 at 1115, IV push over 2-5 minutes. 1122 (Given - Provid er: Raeann Daniel RN) sodium chloride 0.9% bolus infusion 1,000 mL (COMPLETED) 1,000 mL, Intravenous, Administer over 15 Minutes, Once, 1 dose, On 04/08/23 at 1115 1122 (New Bag - Prov ider: Raeann Daniel RN)1233 (Infusion Stop Time - Provider: Raeann Daniel RN) PRN Medication Order 04/06/2023 04/07/2023 04/08/2023 iopamidol (ISOVUE-370) 76 % injection 100 mL (COMPLETED) 100 mL, Intravenous, IMG once as needed, Contrast, 1 dose, Starting on 04/08/23 at 1204, Until 04/08/23 at 1204 1204 (Given - Provid er: Chen Laguerre, RTR) documented in this encounter Additional Health Concerns Infection Onset Date Last Indicated Resolved Time 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
--- OUTSIDE RECORDS SUMMARY | 2024-02-28 13:27 | XMS_ITS | Encounter Summary ---
Author Organization [facility] Address [facility]ly [facility] [place] [address] [place] [address] Care Team Providers Care Certified Adapted Physical Educator Name Role Phone None, Provider MD Primary Care Provider Unavaila ble Reason for Visit * Reason Comments Leg Pain Pt to the ER with c/ o wound, pain and reddnesss to the left leg. Pt was seen at [place] yesterday and started on Clindamycin. Pt believes the reddness is worsening Encounter Details Date Type Department Care Team (Late st Contact Info) Description 09/18/2020 1:59 AM CDT - 09/18/2020 2:58 AM CDT Emergency [facility] [address] [place] [address] Moo Ahumada MD [facility] [place] [address] Leg Pain (Pt to the ER with c/o wound, pain and reddnesss to the left leg. Pt was seen at [facility] yesterday and started on Clindamycin. Pt believes the reddness is worsening ) Discharge Disposition: Home or Self Care (Routine [...] AM CDT documented as of this encounter Last Filed Vital Signs Vital Sign Reading Time Taken Comments Blood Pressure 111/73 09/18/2020 2:05 AM CDT Pulse 78 09/18/2020 2:05 AM CDT Temperature 37.3 ??C (99.1 ??F) 09/18/2020 2:05 AM CD T Respiratory Rate 16 09/18/2020 2:05 AM CDT Oxygen Saturation 97% 09/18/2020 2:05 AM CDT Inhaled Oxygen Concentration - - Weight 75.8 kg (167 lb) 09/18/2020 2:05 AM CDT Height 180.3 cm (5' 11 ) 09/18/2020 2:05 AM CDT Body Mass Index 23.29 09/18/2020 2:05 AM CDT documented in this encounter Discharge Instructions * Discharge Instructions* Moo Ahumada MD - 09/18/2020 2:42 AM CDT Soak affected leg for 10 to 15 minutes in warm water twice daily. Continue with current antibiotic (clindamycin) as prescribed. Start Bactrim as prescribed. Apply Bactroban ointment twice daily to the affected area. Follow-up with primary care on Monday-call later today to arrange appointment. Return to the ER for any worsening symptoms or concerns. * Attachments The following attachments cannot be sent through Care Everywhere. * Cellulitis (Skin Infection) Discharge Instructions, Adult (Colombian) documented in this encounter Medications at Time of Discharge lamoTRIgine (LAMICTAL) 150 MG tablet Take 1 tablet (150 mg total) by mouth daily. clindamycin 150 MG capsule Take 150 mg by mouth 3 (three) times daily. 04/21/2021 sulfamethoxazole- trimethoprim (BACTRIM DS) 800-160 MG tablet Take 1 tablet by mouth 2 (two) times daily for 13 doses. 13 tablet 09/18/2020 09/25/2020 documented as of this encounter ED Notes * Moo Ahumada MD - 09/18/2020 2:37 AM CDT Chief Complaint Chief Complaint Patient presents with ??? Leg Pain Pt to the ER with c/o wound, pain and reddnesss to the left leg. Pt was seen at [facility] yesterday and started on Clindamycin. Pt believes the reddness is worsening History of Present Illness 29-year-old male presents to the ED with a chief complaint of a wound to his left leg. The patient was seen in the ED yesterday [facility]. He was prescribed clindamycin. Because of increased redness the patient presented to the ER here for reevaluation. He denies any constitutional symptoms such as fevers or chills. He has noticed some scant amount of drainage from the wound. He denies any trauma.His pain is controlled. He has not taken any pain medication at this time. No other alleviating contributing factors. No other complaints this time. Medical History ALLERGIES: No Known Allergies MEDICATIONS: Prior to Admission medications Medication Sig Start Date End Date Taking? Authorizing Provider clindamycin 150 MG capsule Take 150 mg by mouth 3 (three) times daily. Yes Doc Abstract lamoTRIgine 25 MG tablet Take 25 mg by mouth 2 (two) times daily. Yes Doc Abstract sulfamethoxazole-trimethoprim (BACTRIM DS) 800-160 MG tablet Take 1 tablet by mouth 2 (two) times daily for 13 doses. 09/18/20 09/25/20 Yes Moo Ahumada MD PAST MEDICAL HISTORY: Past Medical History: Diagnosis Date ??? Bipolar 1 disorder ([facility]) PAST SURGICAL HISTORY: History reviewed. No pertinent surgical history. FAMILY HISTORY: Family History Problem Relation Name Age of Onset ??? Seizures Mother ??? Crohns Disease Mother ??? Psoriasis Father ??? Psoriasis Sister ??? No Known Problems Brother SOCIAL HISTORY: Social History Tobacco Use ??? Smoking status: Current Every Day Smoker Packs/day: 1.00 Types: Cigarettes ??? Smokeless tobacco: Never Used Substance Use Topics ??? Alcohol use: Never ??? Drug use: Never Review of Systems Review of Systems All other systems reviewed and are negative. Physical Exam Filed Vitals: 09/18/20 0205 BP: 111/73 Pulse: 78 Resp: 16 Temp: 99.1 ??F (37.3 ??C) TempSrc: Temporal SpO2: 97% Weight: 75.8 kg (167 lb) Height: 5' 11 (1.803 m) Physical Exam Gen: alert and oriented x 3. GCS 15. Well nourished, well hydrated in no distress. Heent: perrl, eomi, op clear, neck supple no meningismus/meningitic signs, no lad Cardiac: Nl S1/S2, RRR, no murmurs rubs gallops. Pulmonary: Clear to auscultation b/l. No wheeze, rhonchi, crackles Abdomen: s/nt/nd NABS. No rebound, guarding or rigidity Extremity: Pt. able to move all four extremities. No Cyanosis, Edema. Patient has an area of cellulitis to the mid anterior martinez. There is a central scab. The area of erythema is roughly 3 x 3 cm. Nosignificant fluctuance or induration. No lymphangitic streaking. No calf tenderness or calf swelling. Neuro: Moves all four extremities equally Diagnostic Studies / Procedures ELECTROCARDIOGRAMS: No results found for this visit on 09/18/20. LABORATORY STUDIES: No results found for this visit on 09/18/20. IMAGING STUDIES No orders to display ED Course / Medical Decision Making I was able to express a scant amount of pus from the wound. This was sent for wound culture. Patient had Bactroban applied to the affected area with a dressing. He is also given a dose of Bactrim forimproved MRSA coverage. Patient will be discharged on a course of Bactrim recommended to continue with clindamycin which had been previously prescribed yesterday. Will recommend soaking in lukewarm water twice daily for 10 minutes and twice daily application of Bactroban. Return to the ER for any worsening symptoms or concerns and otherwise will be given primary care referral. Needs [id number] pain medication if needed. Patient expressed understanding. Clinical Impression Cellulitis (Primary) Disposition: Discharge Moo Ahumada MD 09/18/20 0242 documented in this encounter Plan of Treatment Not on file documented as of this encounter Procedures Procedure Name Priority Date/Time Associated Diagnosis Comments HC BODY FLUID CULTURE STAT 09/18/2020 2:18 AM CDT documented in this encounter Results * CULTURE, WOUND, W/GRAM STAIN (09/18/2020 2:18 AM CDT) SPEC DESCRIPTION LEG,LEFT 09/18/2020 2:38 AM CDT [facility] SPECIAL REQUESTS NO SPECIAL REQUEST 09/18/2020 2:38 AM CDT [facility] GRAM STAIN RESULT NO ORGANISMS SEEN 09/18/2020 4:16 AM CDT [facility] CULTURE RESULT MODERATE METHICILLIN RESISTANT STAPHYLOCOCCUS AUREUS 09/20/2020 2:25 PM CDT [facility] STRUCTURE OF LEFT LOWER LIMB / Unknown 09/18/2020 2:18 AM CDT 09/18/2020 2:38 AM CDT Narrative Organism Antibiotic Method Susceptibility Methicillin [...] staphy lococcus aureus VANCOMYCIN CHANTELL (VITEK) Sensitive Moo Ahumada MD MICROBIOLOGY - GENERAL GILDA BARRERA Final Result [facility] [address] [place] [address], [place] [phone] [id number] [facility] [address] [place] [address], documented in this encounter Visit Diagnoses Diagnosis Cellulitis- Primary Cellulitis and abscess of unspecified site documented in this encounter Administered Medications Inactive Administered Medications - up to 3 most recent administrations Medication Order MAR Action Action Date Dose Rate Site mupirocin (BACTROBAN) 2 % ointment Topical, Once, 1 dose, On Mon09/18/20 at 0245 Given 09/18/2020 2:51 AM CDT sulfamethoxazole-trimethoprim (BACTRIM DS) 800-160 MG tablet 1 tablet 1 tablet, Oral, Once, 1 dose, On Mon09/18/20 at 0245 Given 09/18/2020 2:50 AM CDT 1 tablet documented in this encounter Active and Recently Administered Medications Times are shown in CDT. Scheduled Medication Order 09/16/2020 09/17/2020 09/18/2020 mupirocin (BACTROBAN) 2 % ointment (COMPLETED) Topical, Once, 1 dose, On Mon09/18/20 at 0245 0251 (Given - Provid er: Liz Azevedo RN) sulfamethoxazole-trimethoprim (BACTRIM DS) 800-160 MG tablet 1 tablet (COMPLETED) 1 tablet, Oral, Once, 1 dose, On Mon09/18/20 at 0245 0250 (Given - Provid er: Liz Azevedo RN) documented in this encounter Care Teams Certified Adapted Physical Educator Relationship Specialty Start Date End Date None, Provider, PCP - General 07/17/20 12/22/21 documented as of this encounter
--- OUTSIDE RECORDS SUMMARY | 2024-02-28 13:27 | XMS_ITS | Encounter Summary ---
Author Organization [facility] Address [address] [place] [address]. [place], [place] [id number] [place] [address] Care Team Providers Care Computer Language Coder Name Role Phone Hugo Robbins MD Primary Care Provider [phone] Encounter Details Date Type Department Care Team (Latest Contact Info) Description 12/23/2021 Travel Social History Tobacco Use Types Packs/Day [...] suspected to have Coronavirus/COVID-19? No / Unsure 12/23/2021 4:25 PM CDT documented as of this encounter Plan of Treatment Not on file documented as of this encounter Visit Diagnoses Not on filedocumented in this encounter Additional Health Concerns Infection Onset Date Last Indicated Resolved Time MRSA Comment:09/18/20 Left Leg (RG) 09/20/2020 07/15/2023 documented as of this encounter Care Teams Computer Language Coder Relationship Specialty Start Date End Date Hugo Robbins MD [address] [place] [phone] PCP - General FAMILY PRACTICE 12/23/21 07/14/23 documented as of this encounter
--- OUTSIDE RECORDS SUMMARY | 2024-02-28 13:27 | XMS_ITS | Encounter Summary ---
Author Organization [facility] Address [address] [place] [address]. [place], [place] [address] [place] [address] Care Team Providers Care Destaticizer Feeder Name Role Phone None, Provider Primary Care Provider Unavaila ble Encounter Details Date Type Department Care Team (Latest Contact Info) Description 07/17/2020 Travel Social History Tobacco Use Types Packs/Day [...] on filedocumented in this encounter Care Teams Destaticizer Feeder Relationship Specialty Start Date End Date None, Provider, PCP - General 07/17/20 12/22/21 documented as of this encounter
--- OUTSIDE RECORDS SUMMARY | 2024-02-28 13:27 | XMS_ITS | Encounter Summary ---
Author Organization [facility] Address [address] [place] [address]. [place], [place] [address] [place] [address] Care Team Providers Care Conservation Engineer Name Role Phone Hugo Robbins MD Primary Care Provider [phone] Encounter Details Date Type Department Care Team (Latest Contact Info) Description 04/08/2023 Travel Social History Tobacco Use Types Packs/Day [...] on file documented as of this encounter Plan of Treatment Not on file documented as of this encounter Visit Diagnoses Not on filedocumented in this encounter Additional Health Concerns Infection Onset Date Last Indicated Resolved Time MRSA Comment:09/18/20 Left Leg (RG) 09/20/2020 07/15/2023 COVID-19 Rule Out 04/08/2023 04/08/2023 04/08/2023 12:00 PM MANAGING CONSULTANT documented as of this encounter Care Teams Conservation Engineer Relationship Specialty Start Date End Date Hugo Robbins MD [address] [place] [phone] PCP - General FAMILY PRACTICE 12/23/21 07/14/23 documented as of this encounter
--- OUTSIDE RECORDS SUMMARY | 2024-02-28 13:27 | XMS_ITS | Encounter Summary ---
Author Organization [facility] Address [address] [place] [address]. [place] [address] [place] [address] Care Team Providers Care Guidance Adviser Name Role Phone Hugo Robbins MD Primary Care Provider Reason for Visit * Reason Comments STD Screening Encounter Details Date Type Department Care Team (Late st Contact Info) Description 12/23/2021 4:27 PM CDT - 12/23/2021 7:26 PM CDT Emergency [facility] [place] [address] July Rojo MD [address] [place] [id number] STD Screening Discharge Disposition: Home or Self Care (Routine [...] Sign Reading Time Taken Comments Blood Pressure 110/60 12/23/2021 6:59 PM CDT Pulse 72 12/23/2021 6:59 PM CDT Temperature 36.5 ??C (97.7 ??F) 12/23/2021 4:34 PM CD T Respiratory Rate 18 12/23/2021 4:34 PM CDT Oxygen Saturation 100% 12/23/2021 6:59 PM CDT Inhaled Oxygen Concentration - - Weight 76.7 kg (169 lb) 12/23/2021 4:34 PM CDT Height 180.3 cm (5' 11 ) 12/23/2021 4:34 PM CDT Body Mass Index 23.57 12/23/2021 4:34 PM CDT documented in this encounter Discharge Instructions * Discharge Instructions* July Rojo MD - 12/23/2021 7:14 PM CDT Barrier protection until you get all your results. Increase oral fluids intake. Avoid alcohol intake. Follow-up with primary care doctor in 2 to 3 days. * Attachments The following attachments cannot be sent through Care Everywhere. * Screening for Sexually Transmitted Infections ([place]) documented in this encounter Medications at Time of Discharge lamoTRIgine (LAMICTAL) 150 MG tablet Take 1 tablet (150 mg total) by mouth daily. documented as of this encounter ED Notes * July Rojo MD - 12/23/2021 5:47 PM CDT Chief Complaint Chief Complaint Patient presents with ??? STD Screening History of Present Illness Patient is a 31-year-old male who presents with concerns of STD infection. He had unprotected intercourse with someone 5 days ago disclosed to him that she was diagnosed with trichomonas. He wanted to have an STD screen today. He denies any penile discharge. Denies any dysuria or increased urinary frequency. Denies any penile lesions. Medical History ALLERGIES: Allergies Allergen Reactions ??? Depakote [Valproic Acid] Nausea and Vomiting ??? Ritalin [Methylphenidate] Unknown ??? Zyprexa [Olanzapine] Unknown MEDICATIONS: Prior to Admission medications Medication Sig Start Date End Date Taking? Authorizing Provider lamoTRIgine 25 MG tablet Take 25 mg by mouth 2 (two) times daily. Yes Doc [facility] PAST MEDICAL HISTORY: Past Medical History: Diagnosis Date ??? Bipolar 1 disorder ([facility]) PAST SURGICAL HISTORY: No past surgical history on file. FAMILY HISTORY: Family History Problem Relation Name Age of Onset ??? Seizures Mother ??? Crohns Disease Mother ??? Psoriasis Father ??? Psoriasis Sister ??? No Known Problems Brother SOCIAL HISTORY: Social History Tobacco Use ??? Smoking status: Current Every Day Smoker Packs/day: 1.00 Types: Cigarettes ??? Smokeless tobacco: Never Used Vaping Use ??? Vaping Use: Never used Substance Use Topics ??? Alcohol use: Never ??? Drug use: Never Review of Systems Review of Systems Constitutional: Negative for chills and fever. HENT: Negative. Eyes: Negative. Respiratory: Negative. Cardiovascular: Negative. Gastrointestinal: Negative for abdominal pain, nausea and vomiting. Endocrine: Negative. Genitourinary: Negative for penile discharge, penile pain and penile swelling. Musculoskeletal: Negative. Skin: Negative for rash. Neurological: Negative. Psychiatric/Behavioral: Negative. Physical Exam Filed Vitals: 12/23/21 1634 12/23/21 1745 12/23/21 1859 BP: 125/72 125/52 110/60 Pulse: 74 72 Resp: 18 Temp: 97.7 ??F (36.5 ??C) TempSrc: Oral SpO2: 99% 99% 100% Weight: 76.7 kg (169 lb) Height: 5' 11 (1.803 m) Physical Exam Vitals and nursing note reviewed. Constitutional: Appearance: Normal appearance. HENT: Head: Normocephalic. Nose: Nose normal. Mouth/Throat: Mouth: Mucous membranes are moist. Eyes: Conjunctiva/sclera: Conjunctivae normal. Cardiovascular: Rate and Rhythm: Normal rate. Pulmonary: Effort: Pulmonary effort is normal. Genitourinary: Penis: Normal. Testes: Normal. Musculoskeletal: General: Normal range of motion. Cervical back: Normal range of motion. Neurological: General: No focal deficit present. Mental Status: He is alert. Diagnostic Studies / Procedures ELECTROCARDIOGRAMS: No results found for this visit on 12/23/21. LABORATORY STUDIES: Results for orders placed or performed during the hospital encounter of 12/23/21 URINALYSIS Result Value Ref Range COLOR (U) YELLOW TRANSPARENCY CLEAR Specific [place] (U) 1.025 1.000 - 1.025 U PH 7.0 5.0 - 8.0 LEUKOCYTE ESTERASE NEGATIVE NEGATIVE NITRITES NEGATIVE NEGATIVE PROTEIN (U) NEGATIVE NEGATIVE URINE GLUCOSE NEGATIVE NEGATIVE U KETONES NEGATIVE NEGATIVE UROBILINOGEN 1.0 (H) <1.0 EU/DL BILIRUBIN (U) NEGATIVE NEGATIVE BLOOD NEGATIVE NEGATIVE WBC/HPF 0-5 0 - 5 /HPF RBC/HPF 0-5 0 - 5 /HPF EPI/LPF RARE /LPF BACTERIA (URINE) TRACE /HPF MUCUS PRESENT IMAGING STUDIES No orders to display ED Course / Medical Decision Making Patient was given Flagyl 2 g p.o. here in the ED for treatment for trichomonas. He declined treatment for gonorrhea chlamydia as recommended. He wanted to wait for results prior to receiving additional treatment. ED Course as of 12/24/21 075 [facility] Dec 23, 20211914 Patient was counseled that his results will be sent to another lab. He still wanted to have prophylactic treatment for trichomonas. He declined any treatment for other STDs until he got his results. [AK] ED Course User Index [AK] July Rojo MD Clinical Impression Screening for STD (sexually transmitted disease) (Primary) Disposition: Discharge July Rojo MD 12/24/217[address] * Cara Ngo RN - 12/23/2021 4:32 PM CDT Pt arrives stating a sexual partner he had been with over the weekend informed him that she has trichomoniasis and he would like tested for all STDs. Denies any symptoms. documented in this encounter Plan of Treatment Not on file documented as of this encounter Procedures Procedure Name Priority Date/Time Associated Diagnosis Comments HIV 1 ANTIGEN(S), WITH HIV-1 AND HIV-2 ANTIBODIES STAT 12/23/2021 5:50 PM CDT HEPATITIS PANEL,ACUTE STAT 12/23/2021 5:50 PM CDT SYPHILIS/RPR/VDRL; QUAL STAT 12/23/2021 5:50 PM CDT CHLAM/GC/TRICHOMONAS PROFILE STAT 12/23/2021 5:00 PM CDT HC URINALYSIS AUTO W/MICRO STAT 12/23/2021 5:00 PM CDT documented in this encounter Results * HIV 1 ANTIGEN(S), WITH HIV-1 AND HIV-2 ANTIBODIES (12/23/2021 5:50 PM CDT) HIV 1/2 AB+ HIV1 P24 AG NON-REACTI VE NON-REACTI VE 12/24/2021 12:51 PM CDT [facility] Comment:HIV 1 p24 Ag and HIV 1/ HIV 2 Ab not detected. 12/23/2021 5:50 PM CDT us July Rojo MD LABORATORY Final Res ult Performing Organization Address [facility]/ZIP Co de Phone Number [facility] [address] [place] [address], [place] [phone] * SYPHILIS/RPR/VDRL; QUAL (12/23/2021 5:50 PM CDT) RPR NON-REACTIV E NON-REACTI VE 12/27/2021 9:56 AM POWER TRANSFORMER INSPECTOR [facility] 12/23/2021 5:50 PM CDT us July Rojo MD LABORATORY Final Res ult Performing Organization Address City/[facility]/ZIP Co de Phone Number [facility] [address] [place] [address], [place] [phone] * HEPATITIS PANEL,ACUTE (12/23/2021 5:50 PM CDT) HEPATITIS B SURFACE AG NON-REACT THAD NON-REACT THAD 12/24/2021 1:16 PM CDT [facility] Comment:HBsAg NOT DETECTED. HEP B CORE IGM NON-REACT THAD NON-REACT THAD 12/24/2021 1:16 PM CDT [facility] Comment: IgM ANTI HBc NOT DETECTED. DOES NOT EXCLUDE THE POSSIBILITY OF EXPOSURE TO OR INFECTION WITH HBV. NO RETEST REQUIRED. HIGH DOSES OF BIOTIN MAY INTERFERE WITH THIS TEST RESULT. CORRELATION TO CLINICAL HISTORY AND PRESENTATION RECOMMENDED. HAV IGM NON-REACT THAD NON-REACT THAD 12/24/2021 1:16 PM CDT [facility] Comment: IgM ANTI HAV NOT DETECTED. DOES NOT EXCLUDE THE POSSIBILITY OF EXPOSURE TO OR INFECTION WITH HAV. LEVELS OF IgM ANTI HAV MAY BE BELOW THE CUTOFF IN EARLY INFECTION. HEPATITIS C AB NON-REACT THAD NON-REACT THAD 12/24/2021 1:16 PM CDT [facility] Comment: ANTIBODIES TO HCV NOT DETECTED. DOES NOT EXCLUDE THE POSSIBILITY OF EXPOSURE TO HCV. 12/23/2021 5:50 PM CDT July Rojo MD LABORATORY Final Res ult [facility] [address] [place] [address], [phone] * CHLAM/GC/TRICHOMONAS PROFILE (12/23/2021 5:00 PM CDT) SPEC DESCRIPTION URINE 12/24/19 22 5:06 PM CDT [facility] CHLAMYDIA RNA TMA NEGATIVE NEGATIVE 022 2:05 AM CDT [facility] Comment:PERFORMED BY NUCLEIC ACID AMPLIFICATION N.GONORRHOEAE RNA TMA NEGATIVE NEGATIVE 12/25/2021 2:05 AM CDT [facility] Comment:PERFORMED BY NUCLEIC ACID AMPLIFICATION TRICHOMONAS NEGATIVE NEGATIVE 12/27/2021 12:00 PM POWER TRANSFORMER INSPECTOR [facility] Comment:PERFORMED BY NUCLEIC ACID AMPLIFICATION URINE SPECIMEN / Unknown 12/23/2021 5:00 PM CDT us July Rojo MD MICROBIOLOGY - GENERAL OR DERABLES Final Result [facility] [address] [place] [address], [place] [phone] [facility] [address] [place] [address], [place] [phone] * (ABNORMAL) URINALYSIS (12/23/2021 5:00 PM CDT) COLOR (U) YELLOW 12/23/2021 6:39 PM CDT [facility] TRANSPARENCY CLEAR 12/23/2021 6:39 PM CDT [facility] SPECIFIC GRAVITY (U) 1.025 1.000 - 1.025 12/23/2021 6:39 PM CDT [facility] U PH 7.0 5.0 - 8.0 12/23/2021 6:39 PM CDT [facility] LEUKOCYTES (U) NEGATIVE NEGATIVE 12/23/2021 6:39 PM CDT [facility] NITRITES NEGATIVE NEGATIVE 12/23/2021 6:39 PM CDT [facility] PROTEIN (U) NEGATIVE NEGATIVE 12/23/2021 6:39 PM CDT [facility] URINE GLUCOSE NEGATIVE NEGATIVE 12/23/2021 6:39 PM CDT [facility] KETONES MG/DL (U) NEGATIVE NEGATIVE 12/23/2021 6:39 PM CDT [facility] UROBILINOGEN 1.0(H) <1.0 EU/DL 12/23/2021 6:39 PM CDT [facility] BILIRUBIN (U) NEGATIVE NEGATIVE 12/23/2021 6:39 PM CDT [facility] BLOOD (U) NEGATIVE NEGATIVE 12/23/2021 6:39 PM CDT [facility] WBC/HPF 0-5 0 - 5 /HPF 12/23/2021 6:39 PM CDT [facility] RBC/HPF 0-5 0 - 5 /HPF 12/23/2021 6:39 PM CDT [facility] EPI/LPF RARE /LPF 12/23/2021 6:39 PM CDT [facility] BACTERIA (U) TRACE /HPF 12/23/2021 6:39 PM CDT [facility] MUCUS PRESENT 12/23/2021 6:39 PM CDT [facility] URINE SPECIMEN OBTAINED BY CLEAN CATCH PROCEDURE / Unknown 12/23/2021 5:00 PM CDT us July Rojo MD URINE ORDERABLES Final Re sult [facility] [address] [place] [address], documented in this encounter Visit Diagnoses Diagnosis Screening for STD (sexually transmitted disease)- Primary Screening examination for venereal disease documented in this encounter Administered Medications Inactive Administered Medications - up to 3 most recent administrations Medication Order MAR Action Action Date Dose Rate Site metroNIDAZOLE (FLAGYL) tablet 2,000 mg 2,000 mg, Oral, Once, 1 dose, On Lamar 12/23/21 at 1915 Given 12/23/2021 7:25 PM CDT 2,000 mg documented in this encounter Active and Recently Administered Medications Times are shown in CDT. 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
--- OUTSIDE RECORDS SUMMARY | 2024-02-28 13:52 | XMS_ITS | Clinical Summary ---
Author Organization [facility] Address [facility]. [place], [place] [address] [place] [address] Care Team Providers Care Regional Maintenance Manager Name Role Phone Konstantin Licona MD Primary Care Provider [phone] Allergies Active Allergy Reactions Criticality Noted Date [...] drink = 0.6 oz pur e alcohol) [facility] Utilities Answer Date Recorded In the past 12 months has e Shopliment, oil, or water [employer] threatened to shut off services in your [...] any time in the past 12 m [facility], were you homeless or living in a longterm (including now)? No 07/14/2023 Sex and Gender [...] THAD NON-REACT THAD 12/24/2021 1:16 PM CDT [facility] Comment:HBsAg NOT DETECTED. HEP B CORE IGM NON-REACT THAD NON-REACT THAD 12/24/2021 1:16 PM CDT [facility] Comment: IgM ANTI HBc NOT DETECTED. DOES NOT EXCLUDE THE POSSIBILITY OF EXPOSURE TO OR INFECTION WITH HBV. NO RETEST REQUIRED. HIGH DOSES OF BIOTIN MAY INTERFERE WITH THIS TEST RESULT. CORRELATION TO CLINICAL HISTORY AND PRESENTATION RECOMMENDED. HAV IGM NON-REACT THAD NON-REACT THAD 12/24/2021 1:16 PM CDT [facility] Comment: IgM ANTI HAV NOT DETECTED. DOES NOT EXCLUDE THE POSSIBILITY OF EXPOSURE TO OR INFECTION WITH HAV. LEVELS OF IgM ANTI HAV MAY BE BELOW THE CUTOFF IN EARLY INFECTION. HEPATITIS C AB NON-REACT THAD NON-REACT THAD 12/24/2021 1:16 PM CDT [facility] Comment: ANTIBODIES TO HCV NOT DETECTED. DOES NOT EXCLUDE THE POSSIBILITY OF EXPOSURE TO HCV. 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
--- OUTSIDE RECORDS SUMMARY | 2024-02-28 13:52 | XMS_ITS | Encounter Summary ---
Author Organization [facility] Address [address] [place] [address]. [place], [place] [address] [place] [address] Care Team Providers Care Mixed Crop Farmer Name Role Phone None, Provider Primary Care [...] Coronavirus/COVID-19? 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
--- OUTSIDE RECORDS SUMMARY | 2024-02-28 13:52 | XMS_ITS | Encounter Summary ---
Author Organization [facility] Address [address] [place] [address]. [place], [place] [address] [place] [id number] Care Team Providers Care Management Specialist Name Role Phone Hugo Robbins MD Primary Care Provider [phone] Encounter Details Date Type Department Care Team [...] Rule Out 04/08/2023 04/08/2023 04/08/2023 12:00 PM CONTINUOUS ABSORPTION PROCESS OPERATOR documented as of this encounter Care Teams Management Specialist Relationship Specialty Start Date End Date Hugo Robbins MD [address] [place] [phone] PCP - General FAMILY PRACTICE 12/23/21 07/14/23 documented as of this encounter
--- OUTSIDE RECORDS SUMMARY | 2024-02-28 13:52 | XMS_ITS | Encounter Summary ---
Author Organization [facility] Address [address] [place] [address]. [place] [address] [place] [address] Care Team Providers Care Clinical Evaluator Name Role Phone None, Provider Primary Care Provider Unavaila ble Reason for Visit * Reason Comments Medical Problem Encounter Details Date Type Department Care Team (Late st Contact Info) Description 04/21/2021 9:17 AM CLINICAL LIAISON - 04/21/2021 10:02 AM CLINICAL LIAISON Emergency [facility] [address] [place] [address] [place] [phone] Kevin Hernandez MD [address] [place] [phone] Medical Problem Discharge Disposition: Home or Self [...] Coronavirus/COVID-19? No / Unsure 04/21/2021 9:20 AM CLINICAL LIAISON documented as of this encounter Last Filed Vital Signs Vital Sign Reading Time Taken Comments Blood Pressure 131/82 04/21/2021 9:22 AM CLINICAL LIAISON Pulse 84 04/21/2021 9:22 AM CLINICAL LIAISON Temperature 36.8 ??C (98.2 ??F) 04/21/2021 9:22 AM CS T Respiratory Rate 16 04/21/2021 9:22 AM CLINICAL LIAISON Oxygen Saturation 100% 04/21/2021 9:22 AM CLINICAL LIAISON Inhaled Oxygen Concentration - - Weight 72.2 kg (159 lb 4 oz) 04/21/2021 9:22 AM CLINICAL LIAISON Height 180.3 cm (5' 11 ) 04/21/2021 9:22 AM CLINICAL LIAISON Body Mass Index 22.21 04/21/2021 9:22 AM CLINICAL LIAISON documented in this encounter Discharge Instructions * Attachments The following attachments cannot be sent through Care Everywhere. * Sinusitis in Adults (Slovak) documented in this encounter Medications at Time [...] Also c/o sinus congestion and productive cough ICAL LIAISON * Kevin Hernandez MD - 04/21/2021 9:07 [...] and his primary care physician is in [place] but is not sure who it is. [...] History: Diagnosis Date ??? Bipolar 1 disorder ([facility]) SURGICAL HISTORY History reviewed. No pertinent surgical [...] ONSET [id number] HOSPITALIZATION STATUS NO RESIDENT OF [facility] NO ED MEDICATIONS Medications - No data [...] 10 days. Kevin Hernandez MD 04/21/21 0957 ICAL LIAISON documented in this encounter Plan of Treatment Not on file documented as of this encounter Procedures Procedure Name Priority Date/Time Associated Diagnosis Comments CORONAVIRUS (COVID-19) ANTIGEN DIRECT OPTICAL STAT 04/21/2021 9:32 AM CLINICAL LIAISON documented in this encounter Results * CORONAVIRUS (COVID-19) ANTIGEN DIRECT OPTICAL (04/21/2021 9:32 AM CLINICAL LIAISON) CORONAVIRUS ANTIGEN IA NEGATIVE NEGATIVE 04/21/2021 9:55 AM CLINICAL LIAISON [facility] Comment: NEGATIVE RESULTS DO NOT [...] LABORATORIES. SPECIMEN TYPE NASAL 04/21/2021 9:35 AM CLINICAL LIAISON [facility] FIRST TEST NO 04/21/2021 9:35 AM CLINICAL LIAISON [facility] EMPLOYED IN HEALTHCARE NO 04/21/2021 9:35 AM CLINICAL LIAISON [facility] SYMPTOMATIC DEFINED BY CDC YES 04/21/2021 9:35 AM CLINICAL LIAISON [facility] DATE OF SYMPTOM ONSET 2021040704/21/2021 9:35 AM CLINICAL LIAISON [facility] HOSPITALIZATION STATUS NO 04/21/2021 9:35 AM CLINICAL LIAISON [facility] RESIDENT OF [facility] NO 04/21/2021 9:35 AM CLINICAL LIAISON [facility] Specimen from nose (specimen) NASAL STRUCTURE / Unknown 04/21/2021 9:32 AM CLINICAL LIAISON Kevin Hernandez MD MICROBIOLOGY - GENERAL ORDERA BLES Final Result [facility] [address] [place] [address], documented in this encounter Visit Diagnoses Diagnosis Bacterial sinusitis- Primary Unspecified sinusitis (chronic) documented in this encounter Additional Health Concerns Infection Onset Date Last Indicated Resolved Time MRSA Comment:09/18/20 Left Leg (RG) 09/20/2020 07/15/2023 COVID-19 Rule Out 04/21/2021 04/21/2021 04/21/2021 9:55 AM CLINICAL LIAISON documented as of this encounter Care Teams Clinical Evaluator Relationship Specialty Start Date End Date None, Provider, PCP - General 07/17/20 12/22/21 documented as of this encounter
--- OUTSIDE RECORDS SUMMARY | 2024-02-28 13:52 | XMS_ITS | Encounter Summary ---
Author Organization [facility] Address [facility]. [place], [place] [address] [place] [address] Care Team Providers Care Data Processing Control Clerk Name Role Phone Hugo Robbins MD Primary Care Provider [phone] Qing Rizzo MD Primary Care Provider [phone] Reason for Referral * Imaging (Urgent) - New Request Specialty Diagnoses / Procedures Referred By Amrik aguirre Referred To Contact RADIOLOGY Procedures CT FOREARM LT W CON Alexi Vergara DO [address] [place] [address] Phone: tel: fax: Referral ID Status Reason Start Date Expiration Date V isits Requested Visits Authorized [id number] New Request 07/14/2023 07/13/2024 1 1 Reason for Visit * Reason Comments Insect Bite Chest Pain * Auth/Cert (Routine) Specialty Diagnoses / Procedures Referred By Contslim aguirre Referred To Contact Diagnoses Cellulitis of left upper extremity Cellulitis Procedures NONE Balwinder Joyce MD [address] [place] [address] Phone: tel: fax: Referral ID Status Reason Start Date Expiration Date Visits Re quested Visits Authorized [id number] 1 1 Encounter Details Date Type Department Care Team (Late st Contact Info) Description 07/14/2023 12:13 PM CDT - 07/15/2023 12:00 PM CDT [facility] [address] [place] [address] Alexi Vergara, DO [address] [place] [address] Brianna Dahl MD [address] [place] [phone] Insect Bite; Chest Pain Discharge Disposition: Home or Self Care (Routine Discharge) Social History Tobacco Use Types Packs/Day Years Used Date Smoking Tobacco: Every Day Cigarettes Smokeless Tobacco: Never Alcohol Use Standard Drinks/Week Comments Never 0 (1 standard drink = 0.6 oz pur e alcohol) [facility] Utilities Answer Date Recorded In the past 12 months has e [employer], gas, oil, or water [employer] threatened to shut off services in your [...] were you homeless or living in a snf (including now)? No 07/14/2023 Sex and Gender [...] Brianna Dahl MD Discharge Physician: Dr. Dahl/MARTHA CHAN ANP-BC Primary Diagnoses: Cellulitis Secondary Diagnosis: Bipolar [...] to the ER and received Bactrim at [facility] with no improvement after 2 days he [...] Medical History: Diagnosis Date Bipolar 1 disorder ([facility]) History reviewed. No pertinent surgical history. Social [...] be seen in the emergency department at [facility] 2 days ago and was discharged with [...] of MRSA infection. History provided by: Patient shrimp peeling machine tender used: No Insect Bite Associated symptoms: chest [...] Medical History: Diagnosis Date Bipolar 1 disorder ([facility]) PAST SURGICAL HISTORY: History reviewed. No [...] encounter of 07/14/23 ECG 12 lead Narrative [address] [place] [address] Test Date: 2023-07-14 Pat Name: TIM DEALINSON Department: 3 Room: EXAM 202 Gender: Male Recycling Attendant: : 1990 Requested By: ALEXI VERGARA Order Number: [id number] Reading MD: Dean Love Measurements Intervals [place] Rate: 67 P: 68 ME: 134 QRS: 83 QRSD: 100 T: 67 [...] LT W CON Final Result by User, [email or web address] (07/13 7402) Examination: CT FOREARM LT W CON Exam [...] D.O., dictated portions of this note using [employer] speech recognition software. Occasional wrong word or [...] - 07/14/2023 1:25 PM CDT Called to [facility], spoke with GLENDA - HIS- requested records of previous ER visits. Will fax release of info. * Karla Bailon RN - 07/14/2023 12:16 PM CDT Patient comes to the ER today with what he thinks is a bug bite to his left wrist. Area noticed Monday. Monday he started on an antibiotic. He is was seen in [facility] ER yesterday and was given fluids and [...] SPEC DESCRIPTION WRIST,LEFT 07/15/2023 11:45 AM CDT [facility] SPECIAL REQUESTS NO SPECIAL REQUEST 07/15/2023 11:45 AM CDT [facility] GRAM STAIN RESULT NO ORGANISMS SEEN 07/15/2023 4:20 PM CDT [facility] CULTURE RESULT MODERATE METHICILLIN RESISTANT STAPHYLOCOCCUS AUREUS (A) 07/17/2023 10:21 AM CDT [facility] STRUCTURE OF LEFT WRIST REGION / [...] aureus VANCOMYCIN CHANTELL (VITEK) Sensitive Martha Chan [facility] MICROBIOLOGY - GENERAL OR DERABLES Final Result [facility] [address] [place] [address], [id number] [facility] Formerly [facility] [place] [address], * (ABNORMAL) COMPREHENSIVE METABOLIC PANEL (07/15/2023 4:15 AM CDT) SODIUM S/P/B 135(L) 136 - 145 MMOL/L 07/15/2023 5:00 AM CDT [facility] POTASSIUM S/P/B 4.3 3.5 - 5.1 MMOL/L 07/15/2023 5:00 AM CDT [facility] CHLORIDE S/P/B 105 98 - 107 MMOL/L 07/15/2023 5:00 AM CDT [facility] CO2 27.1 21.0 - 32.0 MMOL/L 07/15/2023 5:00 AM CDT [facility] GLUCOSE 98 70 - 99 MG/DL 07/15/2023 5:00 AM CDT [facility] Comment: FASTING GLUCOSE 100 TO 125 MG/DL IS CONSISTENT WITH IMPAIRED FASTING GLUCOSE. FASTING GLUCOSE >125 MG/DL IS CONSISTENT WITH DIABETES. RANDOM GLUCOSE >200 MG/DL WITH HYPERGLYCEMIC SYMPTOMS IS CONSISTENT WITH DIABETES. PER ADA GUIDELINES BUN 14 6 - 24 MG/DL 07/15/2023 5:00 AM [facility] CREATININE S/P/B 0.92 0.70 - 1.30 MG/DL 07/15/2023 5:00 AM [facility] CALCIUM S/P/B 8.3(L) 8.4 - 10.5 MG/DL 07/15/2023 5:00 AM [facility] BILIRUBIN TOTAL S/P/B 0.4 0.2 - 1.0 MG/DL 07/15/2023 5:00 AM [facility] Comment: THIS ASSAY IS NOT RECOMMENDED FOR PATIENTS UNDERGOING TREATMENT WITH ELTROMBOPAG DUE TO THE POTENTIAL FOR FALSELY ELEVATED RESULTS. ALKALINE PHOSPHATASE S/P/B 88 45 - 115 U/L 07/15/2023 5:00 AM [facility] AST 14(L) 15 - 37 U/L 07/15/2023 5:00 AM [facility] ALT 15(L) 16 - 63 U/L 07/15/2023 5:00 AM [facility] TOTAL PROTEIN S/P/B 6.3(L) 6.4 - 8.2 G/DL 07/15/2023 5:00 AM [facility] ALBUMIN S/P/B 3.1(L) 3.4 - 5.0 G/DL 07/15/2023 5:00 AM [facility] ANION GAP 2.9(L) 5.0 - 15.0 MMOL/L 07/15/2023 5:00 AM [facility] OSMOLALITY (CALC) 280 MOSM/KG 024 5:00 AM [facility] Comment:REFERENCE RANGE NOT ESTABLISHED GFR ESTIMATE >90 >89 ML/MIN/1. 73 M2 07/15/2023 5:00 AM [facility] GFR NOTES GFR REFERENCE S: 07/15/2023 5:00 AM CDT [facility] Comment: THE ESTIMATED GFR IS [...] CDT Alexi Vergara DO LABORATORY Final Result [facility] [place] [address], * (ABNORMAL) CBC W/DIFF AUTOMATED (07/15/2023 4:15 AM CDT) WBC 10.78 4.00 - 10.80 x10'3/uL 07/15/2023 4:45 AM CDT [facility] RBC 4.99 4.50 - 6.10 x10'6/uL 07/15/2023 4:45 AM CDT [facility] HGB 14.3 13.0 - 18.0 G/DL 07/15/2023 4:45 AM CDT [facility] HCT 42.3 37.0 - 52.0 % 07/15/2023 4:45 AM CDT [facility] MCV 84.8 78.0 - 100.0 FL 07/15/2023 4:45 AM CDT [facility] MCH 28.7 27.0 - 31.0 PG 07/15/2023 4:45 AM CDT [facility] MCHC 33.8 33.0 - 36.0 G/DL 07/15/2023 4:45 AM CDT [facility] RDW 12.8 11.5 - 14.5 % 07/15/2023 4:45 AM CDT [facility] PLT 204 150 - 350 x10'3/uL 07/15/2023 4:45 AM CDT [facility] MPV 10.2 7.4 - 10.4 FL 07/15/2023 4:45 AM CDT [facility] CBC COMMENT NORMAL REFERENCE RANGE NOT ESTABLISHED FOR THE PROPORTIONAL LEUKOCYTE DIFFERENTIAL. 07/15/2023 4:45 AM CDT [facility] NEUTROPHILS % 66.0 % 07/15/2023 4:45 AM CDT [facility] LYMPHOCYTES % 20.1 % 07/15/2023 4:45 AM CDT [facility] MONOCYTES % 10.9 % 07/15/2023 4:45 AM CDT [facility] EOSINOPHILS % 2.0 % 07/15/2023 4:45 AM CDT [facility] BASOPHILS % 0.6 % 07/15/2023 4:45 AM CDT [facility] IMMATURE GRANS % 0.4 % 07/15/19 4:45 AM CDT [facility] NRBC 0.0 % 07/15/2023 4:45 AM CDT [facility] ABS. NEUTROPHILS 7.12 1.60 - 8.30 x10'3/uL 07/15/2023 4:45 AM CDT [facility] ABS. LYMPHOCYTES 2.17 0.80 - 4.70 x10'3/uL 07/15/2023 4:45 AM CDT [facility] ABS. MONOCYTES 1.17 0.00 - 1.50 x10'3/uL 07/15/2023 4:45 AM CDT [facility] ABS. EOSINOPHILS 0.22 0.00 - 0.40 x10'3/uL 07/15/2023 4:45 AM CDT [facility] ABS. BASOPHILS 0.06 0.00 - 0.20 x10'3/uL 07/15/2023 4:45 AM CDT [facility] ABS. IMMATURE GRANULOCYTES 0.04(H) 0.00 - 0.03 x10'3/uL 07/15/2023 4:45 AM CDT [facility] ABS. NUCLEATED RBC'S 0.00 0.00 x10'3/uL 07/15/2023 4:45 AM CDT [facility] 07/15/2023 4:15 AM CDT us Alexi Vergara DO [place]AT[place] [address], [place] [phone] * TROPONIN, QUANT (07/14/2023 2:32 PM CDT) TROPONIN I HIGH SENSITIVITY 4 0 - 76 ng/L 07/14/2023 2:57 PM CDT [facility] 07/14/2023 2:32 PM CDT us Alexi Vergara DO LABORATORY Final Result Performing Organization Address [facility]/[place] [address], [place] [phone] * CT FOREARM LT W CON (07/14/2023 [...] SPEC DESCRIPTION BLOOD 07/14/2023 12:55 PM CDT [facility] SPECIAL REQUESTS STERIPATH NOT USED 07/14/2023 12:55 PM CDT [facility] CULTURE RESULT NO GROWTH 5 DAYS 07/19/2023 12:58 PM CDT [facility] BLOOD SPECIMEN OBTAINED FOR BLOOD CULTURE / Unknown 07/14/2023 12:52 PM CDT 07/14/2023 12:55 PM CDT us Alexi Vergara DO MICROBIOLOGY - GENERAL ORDERABLE S Final Result [facility] [address] [place] [address], * MAGNESIUM (07/14/2023 12:46 PM CDT) MAGNESIUM 1.9 1.8 - 2.4 MG/DL 07/14/2023 1:13 PM CDT [facility] 07/14/2023 12:4 6 PM CDT us Alexi Vergara DO LABORATORY Final Result Performing Organization Address [facility]/ZIP Co de Phone Number [facility] [address] [place] [address], [place] [phone] * TROPONIN, QUANT (07/14/2023 12:46 PM CDT) TROPONIN I HIGH SENSITIVITY 4 0 - 76 ng/L 07/14/2023 1:13 PM CDT [facility] 07/14/2023 12:4 6 PM CDT us Alexi Vergara DO LABORATORY Final Result Performing Organization Address [facility] de Phone Number [facility] [address] [place] [address], [place] [phone] * LACTIC ACID W REFLEX (SEPSIS) (07/14/2023 12:46 PM CDT) LACTIC ACID VENOUS 0.5 0.4 - 2.0 MMOL/L 07/14/2023 1:17 PM CDT [facility] 07/14/2023 12:4 6 PM CDT us Alexi Vergara DO LABORATORY Final Result Performing Organization Address [facility]/ZIP Co de Phone Number [facility] [address] [place] [address], [place] [phone] * (ABNORMAL) COMPREHENSIVE METABOLIC PANEL (07/14/2023 12:46 PM CDT) SODIUM S/P/B 135(L) 136 - 145 MMOL/L 07/14/2023 1:13 PM CDT [facility] POTASSIUM S/P/B 4.2 3.5 - 5.1 MMOL/L 07/14/2023 1:13 PM CDT [facility] CHLORIDE S/P/B 103 98 - 107 MMOL/L 07/14/2023 1:13 PM [facility] CO2 25.8 21.0 - 32.0 MMOL/L 07/14/2023 1:13 PM [facility] GLUCOSE 99 70 - 99 MG/DL 07/14/2023 1:13 PM [facility] Comment: FASTING GLUCOSE 100 TO 125 MG/DL IS CONSISTENT WITH IMPAIRED FASTING GLUCOSE. FASTING GLUCOSE >125 MG/DL IS CONSISTENT WITH DIABETES. RANDOM GLUCOSE >200 MG/DL WITH HYPERGLYCEMIC SYMPTOMS IS CONSISTENT WITH DIABETES. PER ADA GUIDELINES BUN 12 6 - 24 MG/DL 07/14/2023 1:13 PM T [facility] CREATININE S/P/B 1.06 0.70 - 1.30 MG/DL 07/14/2023 1:13 PM [facility] CALCIUM S/P/B 8.2(L) 8.4 - 10.5 MG/DL 07/14/2023 1:13 PM [facility] BILIRUBIN TOTAL S/P/B 0.7 0.2 - 1.0 MG/DL 07/14/2023 1:13 PM [facility] Comment: THIS ASSAY IS NOT RECOMMENDED FOR PATIENTS UNDERGOING TREATMENT WITH ELTROMBOPAG DUE TO THE POTENTIAL FOR FALSELY ELEVATED RESULTS. ALKALINE PHOSPHATASE S/P/B 69 45 - 115 U/L 07/14/2023 1:13 PM [facility] AST 13(L) 15 - 37 U/L 07/14/2023 1:13 PM [facility] ALT 13(L) 16 - 63 U/L 07/14/2023 1:13 PM [facility] TOTAL PROTEIN S/P/B 6.2(L) 6.4 - 8.2 G/DL 07/14/2023 1:13 PM [facility] ALBUMIN S/P/B 3.3(L) 3.4 - 5.0 G/DL 07/14/2023 1:13 PM [facility] ANION GAP 6.2 5.0 - 15.0 MMOL/L 07/14/2023 1:13 PM CDT [facility] OSMOLALITY (CALC) 280 MOSM/KG 024 1:13 PM CDT [facility] Comment:REFERENCE RANGE NOT ESTABLISHED GFR ESTIMATE >90 >89 ML/MIN/1. 73 M2 07/14/2023 1:13 PM CDT [facility] GFR NOTES GFR REFERENCE S: 07/14/2023 1:13 PM CDT [facility] Comment: THE ESTIMATED GFR IS [...] us Alexi Vergara DO LABORATORY Final Result [facility] [address] [place] [address], * (ABNORMAL) CBC W/DIFF AUTOMATED (07/14/2023 12:46 PM CDT) WBC 12.73(H) 4.00 - 10.80 x10'3/uL 07/14/2023 12:55 PM CDT [facility] RBC 4.57 4.50 - 6.10 x10'6/uL 07/14/2023 12:55 PM CDT [facility] HGB 13.2 13.0 - 18.0 G/DL 07/14/2023 12:55 PM CDT [facility] HCT 38.7 37.0 - 52.0 % 07/14/2023 12:55 PM CDT [facility] MCV 84.7 78.0 - 100.0 FL 07/14/2023 12:55 PM CDT [facility] MCH 28.9 27.0 - 31.0 PG 07/14/2023 12:55 PM CDT [facility] MCHC 34.1 33.0 - 36.0 G/DL 07/14/2023 12:55 PM CDT [facility] RDW 12.6 11.5 - 14.5 % 07/14/2023 12:55 PM CDT [facility] PLT 180 150 - 350 x10'3/uL 07/14/2023 12:55 PM CDT [facility] MPV 10.0 7.4 - 10.4 FL 07/14/2023 12:55 PM CDT [facility] CBC COMMENT NORMAL REFERENCE RANGE NOT ESTABLISHED FOR THE PROPORTIONAL LEUKOCYTE DIFFERENTIAL. 07/14/2023 12:55 PM CDT [facility] NEUTROPHILS % 78.3 % 07/14/2023 12:55 PM CDT [facility] LYMPHOCYTES % 11.5 % 07/14/2023 12:55 PM CDT [facility] MONOCYTES % 9.1 % 07/14/2023 12:55 PM CDT [facility] EOSINOPHILS % 0.5 % 07/14/2023 12:55 PM CDT [facility] BASOPHILS % 0.4 % 07/14/2023 12:55 PM CDT [facility] IMMATURE GRANS % 0.2 % 07/14/19 12:55 PM CDT [facility] NRBC 0.0 % 07/14/2023 12:55 PM CDT [facility] ABS. NEUTROPHILS 9.96(H) 1.60 - 8.30 x10'3/uL 07/14/2023 12:55 PM CDT [facility] ABS. LYMPHOCYTES 1.47 0.80 - 4.70 x10'3/uL 07/14/2023 12:55 PM CDT [facility] ABS. MONOCYTES 1.16 0.00 - 1.50 x10'3/uL 07/14/2023 12:55 PM CDT [facility] ABS. EOSINOPHILS 0.06 0.00 - 0.40 x10'3/uL 07/14/2023 12:55 PM CDT [facility] ABS. BASOPHILS 0.05 0.00 - 0.20 x10'3/uL 07/14/2023 12:55 PM CDT [facility] ABS. IMMATURE GRANULOCYTES 0.03 0.00 - 0.03 x10'3/uL 07/14/2023 12:55 PM CDT [facility] ABS. NUCLEATED RBC'S 0.00 0.00 x10'3/uL 07/14/2023 12:55 PM CDT [facility] 07/14/2023 12:4 6 PM CDT us Alexi Vergara DO LABORATORY Final Result Performing Organization Address City/[facility]/ZIP Co de Phone Number [place] [phone] [place] [address], * CULTURE, BACTERIA, BLOOD (07/14/2023 12:46 PM CDT) SPEC DESCRIPTION BLOOD 07/14/2023 12:52 PM CDT [facility] SPECIAL REQUESTS STERIPATH NOT USED 07/14/2023 12:52 PM CDT [facility] CULTURE RESULT NO GROWTH 5 DAYS 07/19/2023 12:58 PM CDT [facility] BLOOD SPECIMEN OBTAINED FOR BLOOD CULTURE / Unknown 07/14/2023 12:46 PM CDT 07/14/2023 12:51 PM CDT us Alexi Vergara DO MICROBIOLOGY - GENERAL ORDERABLE S Final Result Performing Organization Address [facility]/ZIP Co de Phone Number [facility] [address] [place] [address], * ECG 12 lead (07/14/2023 12:23 PM CDT) 07/14/2023 12:2 3 PM CDT Narrative [facility] - 07/14/2023 1:05 PM CDT ? [facility] ?[address] [place], [place] ??[address] ? Test Date: ?2023-07-14 Pat Name: ? TIM HDEZ ?Department: ?? 3 ? Room: ? EXAM 202 Gender: ? Male ? Recycling Attendant: ?? : ?1990 ? Requested By: ALEXI VERGARA Order Number: [id number] ? Reading MD: ?? Dean Love ? Measurements Intervals ?[place] ? Rate: ? 67 ? P: ?68 ME: ? 134 ?QRS: ?83 QRSD: ? 100 ?T: ?67 QT: ? 362 ? QTc: ?382 ? Interpretive Statements SINUS RHYTHM WITH SINUS ARRHYTHMIA INCOMPLETE RIGHT BUNDLE BRANCH BLOCK Procedure Note Dean Love MD - 07/14/[address] [place] [address] Test Date: 2023-07-14 Pat Name: TIM LEMUEL Department: 3 Room: EXAM 202 Gender: Male Recycling Attendant: : 1990 Requested By: ALEXI VERGARA Order Number: [id number] Reading MD: Dean Love Measurements Intervals [place] Rate: 67 P: 68 ME: 134 QRS: 83 QRSD: 100 T: 67 QT: 362 QTc: 382 Interpretive Statements SINUS RHYTHM WITH SINUS ARRHYTHMIA INCOMPLETE RIGHT BUNDLE BRANCH BLOCK us Alexi Vergara DO ECG ORDERABLES Final Result [facility] documented in this encounter Visit [...] documented as of this encounter Care Teams Data Processing Control Clerk Relationship Specialty Start Date End Date Hugo Robbins MD [address] [place] [phone] PCP - General FAMILY PRACTICE 12/23/21 07/14/23 Qing Rizzo MD [address] [place] [address] PCP - General INTERNAL MEDICINE 07/15/23 documented as of this encounter
--- OUTSIDE RECORDS SUMMARY | 2024-02-28 13:52 | XMS_ITS | Encounter Summary ---
Author Organization [facility] Address [facility] [place] [address] [place] [address] Care Team Providers Care Box Storage Worker Name Role Phone None, Provider MD Primary Care Provider Unavaila ble Reason for Visit * Reason Comments Leg Pain Pt to the ER with c/ o wound, pain and reddnesss to the left leg. Pt was seen at [facility] yesterday and started on Clindamycin. Pt believes the reddness is worsening Encounter Details Date Type Department Care Team (Late st Contact Info) Description 09/18/2020 1:59 AM CDT - 09/18/2020 2:58 AM CDT Emergency [facility] [address] [place] [address] Moo Ahumada MD [facility] [place] [address] Leg Pain (Pt to the ER with c/o wound, pain and reddnesss to the left leg. Pt was seen at [facility] yesterday and started on Clindamycin. Pt believes [...] * Cellulitis (Skin Infection) Discharge Instructions, Adult (Citizen Of [place]) documented in this encounter Medications at Time [...] the left leg. Pt was seen at [facility] yesterday and started on Clindamycin. Pt believes the reddness is worsening History of Present Illness 29-year-old male presents to the ED with a chief complaint of a wound to his left leg. The patient was seen in the ED yesterday [facility]. He was prescribed clindamycin. Because of increased [...] History: Diagnosis Date ??? Bipolar 1 disorder ([facility]) PAST SURGICAL HISTORY: History reviewed. [...] will be given primary care referral. Needs [id number] pain medication if needed. Patient expressed understanding. [...] SPEC DESCRIPTION LEG,LEFT 09/18/2020 2:38 AM CDT [facility] SPECIAL REQUESTS NO SPECIAL REQUEST 09/18/2020 2:38 AM CDT [facility] GRAM STAIN RESULT NO ORGANISMS SEEN 09/18/2020 4:16 AM CDT [facility] CULTURE RESULT MODERATE METHICILLIN RESISTANT STAPHYLOCOCCUS AUREUS 09/20/2020 2:25 PM CDT [facility] STRUCTURE OF LEFT LOWER LIMB / [...] MICROBIOLOGY - GENERAL GILDA BARRERA Final Result [facility] [address] [place] [address], [place] [phone] [id number] [facility] [address] [place] [address], documented in this encounter Visit Diagnoses Diagnosis [...] RN) documented in this encounter Care Teams Box Storage Worker Relationship Specialty Start Date End Date None, Provider, PCP - General 07/17/20 12/22/21 documented as of this encounter
--- OUTSIDE RECORDS SUMMARY | 2024-02-28 13:52 | XMS_ITS | Encounter Summary ---
Author Organization [facility] Address [address] [place] [address]. [place], [place] [id number] [place] [address] Care Team Providers Care Junior Network Administrator Name Role Phone Hugo Robbins MD Primary Care Provider [phone] Encounter Details Date Type Department Care Team (Latest Contact Info) Description 07/14/2023 Travel Social History Tobacco Use Types Packs/Day Years Used Date Smoking Tobacco: Every Day Cigarettes Smokeless Tobacco: Never Alcohol Use Standard Drinks/Week Comments Never 0 (1 standard drink = 0.6 oz pur e alcohol) [facility] Utilities Answer Date Recorded In the past 12 months has [employer], gas, oil, or water [employer] threatened to shut off services in your [...] any time in the past 12 [facility], were you homeless or living in a jail (including now)? No 07/14/2023 Sex and Gender [...] documented as of this encounter Care Teams Junior Network Administrator Relationship Specialty Start Date End Date Hugo Robbins MD [address] [place] [address] PCP - General FAMILY PRACTICE 12/23/21 07/14/23 documented as of this encounter
--- OUTSIDE RECORDS SUMMARY | 2024-02-28 13:52 | XMS_ITS | Encounter Summary ---
Author Organization [facility] Address [address] [place] [address]. [place] [address] [place] [address] Care Team Providers Care Information Management Officer Name Role Phone None, Provider Primary Care Provider Unavaila ble Reason for Visit * Reason Comments Vomiting Encounter Details Date Type Department Care Team (Late st Contact Info) Description 07/17/2020 5:19 PM CDT - 07/17/2020 5:50 PM CDT Emergency [facility] [address] [place] [address] [place] [address] Maico Vergara, DO [address] [place] [address] Vomiting Discharge Disposition: Home or Self Care [...] on filedocumented in this encounter Care Teams Information Management Officer Relationship Specialty Start Date End Date None, Provider, PCP - General 07/17/20 12/22/21 documented as of this encounter
--- OUTSIDE RECORDS SUMMARY | 2024-02-28 13:52 | XMS_ITS | Encounter Summary ---
Author Organization [facility] Address [address] [place] [address]. [place], [place] [id number] [place] [id number] Care Team Providers Care Options Trader Name Role Phone None, Provider Primary Care [...] on filedocumented in this encounter Care Teams Options Trader Relationship Specialty Start Date End Date None, Provider, PCP - General 07/17/20 12/22/21 documented as of this encounter
--- OUTSIDE RECORDS SUMMARY | 2024-02-28 13:52 | XMS_ITS | Encounter Summary ---
Author Organization [facility] Address [address] [place] [address]. [place], [place] [address] [place] [address] Care Team Providers Care Distributor Cleaner Name Role Phone None, Provider Primary Care [...] on filedocumented in this encounter Care Teams Distributor Cleaner Relationship Specialty Start Date End Date None, Provider, PCP - General 07/17/20 12/22/21 documented as of this encounter
--- OUTSIDE RECORDS SUMMARY | 2024-02-28 13:52 | XMS_ITS | Encounter Summary ---
Author Organization [facility] Address [address] [place] [address]. [place], [place] [address] [place] [address] Care Team Providers Care Control Systems Specialist Name Role Phone Hugo Robbins MD Primary Care Provider +- [phone] Reason for Referral * Imaging (Urgent) - Pending Review Specialty Diagnoses / Procedures Referred By Amrik aguirre Referred To Contact RADIOLOGY Procedures CT ABD+PEL W CON Best Álvarez MD [address] [place] [address] Phone: tel: fax: Referral ID Status Reason Start Date Expiration Date V isits Requested Visits Authorized [id number] Pending Review 04/08/2023 04/08/2024 1 1 STANT PROFESSOR OF ART Reason for Visit * Reason Comments Vomiting Encounter Details Date Type Department Care Team (Late st Contact Info) Description 04/08/2023 10:44 AM ASSISTANT PROFESSOR OF ART - 04/08/2023 1:36 PM ASSISTANT PROFESSOR OF ART [facility] [address] [place] [address] [place] [address] Best Álvarez MD [address] [place] [address] Vomiting Discharge Disposition: Home or Self [...] Comments Blood Pressure 110/78 04/08/2023 10:45 AM ASSISTANT PROFESSOR OF ART Pulse 77 04/08/2023 10:58 AM ASSISTANT PROFESSOR OF ART Temperature 37.7 ??C (99.8 ??F) 04/08/2023 1:28 PM CS T Respiratory Rate 18 04/08/2023 10:57 AM ASSISTANT PROFESSOR OF ART Oxygen Saturation 97% 04/08/2023 10:45 AM ASSISTANT PROFESSOR OF ART Inhaled Oxygen Concentration - - Weight 72.6 kg (160 lb) 04/08/2023 10:56 AM ASSISTANT PROFESSOR OF ART Height 180.3 cm (5' 11 ) 04/08/2023 10:56 AM ASSISTANT PROFESSOR OF ART Body Mass Index 22.32 04/08/2023 10:56 AM ASSISTANT PROFESSOR OF ART documented in this encounter Discharge Instructions * Discharge Instructions* Best Álvarez MD - 04/08/2023 11:10 AM ASSISTANT PROFESSOR OF ART Return if still vomiting at midnight or belly pain worse or pain in the genitalia STANT PROFESSOR OF ART STANT PROFESSOR OF ART * Attachments The following attachments cannot be sent through Care Everywhere. * Nausea and Vomiting Discharge Instructions, Adult (Bhutanese) * Viral Gastroenteritis Discharge Instructions, Adult (Bhutanese) documented in this encounter Medications at Time [...] Medical History: Diagnosis Date Bipolar 1 disorder ([facility]) [facility]) PAST SURGICAL HISTORY: History reviewed. [...] ABD+PEL W CON Final Result by User, [id number] (04/08 1240) Procedure(s): CT ABD+PEL W CON [...] Álvarez MD 04/09/23318 Best Álvarez MD 04/09/23319 STANT PROFESSOR OF ART STANT PROFESSOR OF ART * Camille Phillips RN - 04/08/2023 1:03 PM CST Pt given ice chips. STANT PROFESSOR OF ART * Raeann Daniel RN - 04/08/2023 10:49 AM CST Patient amb to ED with c/o vomiting and general body aches starting last night. No meds taken priorto arrival. Throat also sore. STANT PROFESSOR OF ART documented in this encounter Plan of Treatment Not on file documented as of this encounter Procedures Procedure Name Priority Date/Time Associated Diagnosis Comments CT ABD+PEL W CON STAT 04/08/2023 12:0 4 PM ASSISTANT PROFESSOR OF ART HC URINALYSIS AUTO W/MICRO STAT 04/08/2023 11:57 AM ASSISTANT PROFESSOR OF ART COMPREHENSIVE METABOLIC PANEL STAT 04/08/2023 11:20 AM ASSISTANT PROFESSOR OF ART CBC W/DIFF AUTOMATED STAT 04/08/2023 11:20 AM ASSISTANT PROFESSOR OF ART LIPASE STAT 04/08/2023 11:20 AM ASSISTANT PROFESSOR OF ART CORONAVIRUS (COVID-19) ANTIGEN DIRECT OPTICAL STAT 04/08/2023 11:19 AM ASSISTANT PROFESSOR OF ART RAPID STREP A STAT 04/08/2023 11:19 AM ASSISTANT PROFESSOR OF ART INFLUENZA A & B STAT 04/08/2023 11:19 AM ASSISTANT PROFESSOR OF ART DIRECT BILIRUBIN STAT 04/08/2023 11:1 9 AM ASSISTANT PROFESSOR OF ART documented in this encounter Results * CT ABD+PEL W CON (04/08/2023 12:04 PM ASSISTANT PROFESSOR OF ART) Anatomical Region Laterality Modality Abdomen Computed Tomogra phy 04/08/2023 12:3 4 PM ASSISTANT PROFESSOR OF ART Impressions 04/08/2023 12:39 PM ASSISTANT PROFESSOR OF ART IMPRESSION: There are a few dilated loops of small bowel are present in left upper quadrant. ??This could relate to changes of ileus or early obstructive changes. ??Clinical correlation recommended. Urinary bladder wall is thickened but the bladder is incompletely distended. ??Clinical correlation. Referred By: ?? Interpreted By: Michael Calderno MD, 04/08/2023 12:34 PM Narrative 04/08/2023 12:39 PM ASSISTANT PROFESSOR OF ART Procedure(s): CT ABD+PEL W CON Date of [...] Result * (ABNORMAL) URINALYSIS (04/08/2023 11:57 AM ASSISTANT PROFESSOR OF ART) COLOR (U) YELLOW 04/08/2023 12:17 PM [facility] TRANSPARENCY CLEAR 04/08/2023 12:17 PM [facility] SPECIFIC GRAVITY (U) 1.020 1.000 - 1.025 04/08/2023 12:17 PM [facility] U PH 6.5 5.0 - 8.0 04/08/2023 12:17 PM [facility] LEUKOCYTES (U) NEGATIVE NEGATIVE 04/08/2023 12:17 PM [facility] NITRITES NEGATIVE NEGATIVE 04/08/2023 12:17 PM [facility] PROTEIN RANDOM (U) NEGATIVE NEGATIVE 04/08/2023 12:17 PM [facility] GLUCOSE (U) NEGATIVE NEGATIVE 04/08/2023 12:17 PM [facility] KETONES MG/DL (U) TRACE(A) NEGATIVE 04/08/2023 12:17 PM ASSISTANT PROFESSOR OF ART [facility] UROBILINOGEN 1.0(H) <1.0 EU/DL 04/08/2023 12:17 PM ASSISTANT PROFESSOR OF ART [facility] BLOOD (U) NEGATIVE NEGATIVE 04/08/2023 12:17 PM ASSISTANT PROFESSOR OF ART [facility] WBC/HPF 0-5 0 - 5 /HPF 04/08/2023 12:17 PM ASSISTANT PROFESSOR OF ART [facility] BILIRUBIN CONF ICTO (U) [employer] SHORTAGE UNABLE TO PERFORM NEGATIVE 04/08/2023 12:17 PM ASSISTANT PROFESSOR OF ART [facility] URINE SPECIMEN OBTAINED BY CLEAN CATCH PROCEDURE / Unknown 04/08/2023 11:57 AM ASSISTANT PROFESSOR OF ART us Best Álvarez MD URINE ORDERABLES Final Result Performing Organization Address [facility]/ZIP Co de Phone Number [facility] [address] [place] [address], * LIPASE (04/08/2023 11:20 AM ASSISTANT PROFESSOR OF ART) LIPASE 16 16 - 77 UNITS/L 04/08/2023 11:51 AM ASSISTANT PROFESSOR OF ART [facility] 04/08/2023 11:2 0 AM ASSISTANT PROFESSOR OF ART us Best Álvarez MD LABORATORY Final Result Performing Organization Address [facility]/ZIP Co de Phone Number [facility] [address] [place] [address], * (ABNORMAL) COMPREHENSIVE METABOLIC PANEL (04/08/2023 11:20 AM ASSISTANT PROFESSOR OF ART) SODIUM S/P/B 138 136 - 145 MMOL/L 04/08/2023 11:51 AM ASSISTANT PROFESSOR OF ART [facility] POTASSIUM S/P/B 3.9 3.5 - 5.1 MMOL/L 04/08/2023 11:51 AM ASSISTANT PROFESSOR OF ART [facility] CHLORIDE S/P/B 101 98 - 107 MMOL/L 04/08/2023 11:51 AM [facility] CO2 28.6 21.0 - 32.0 MMOL/L 04/08/2023 11:51 AM [facility] GLUCOSE 99 70 - 99 MG/DL 04/08/2023 11:51 AM [facility] Comment: FASTING GLUCOSE 100 TO 125 MG/DL IS CONSISTENT WITH IMPAIRED FASTING GLUCOSE. FASTING GLUCOSE >125 MG/DL IS CONSISTENT WITH DIABETES. RANDOM GLUCOSE >200 MG/DL WITH HYPERGLYCEMIC SYMPTOMS IS CONSISTENT WITH DIABETES. PER ADA GUIDELINES BUN 24 6 - 24 MG/DL 04/08/2023 11:51 AM [facility] CREATININE S/P/B 1.06 0.70 - 1.30 MG/DL 04/08/2023 11:51 AM [facility] CALCIUM S/P/B 9.0 8.4 - 10.5 MG/DL 04/08/2023 11:51 AM [facility] BILIRUBIN TOTAL S/P/B 1.2(H) 0.2 - 1.0 MG/DL 04/08/2023 11:51 AM [facility] Comment: THIS ASSAY IS NOT RECOMMENDED FOR PATIENTS UNDERGOING TREATMENT WITH ELTROMBOPAG DUE TO THE POTENTIAL FOR FALSELY ELEVATED RESULTS. ALKALINE PHOSPHATASE S/P/B 82 45 - 115 U/L 04/08/2023 11:51 AM [facility] AST 17 15 - 37 U/L 04/08/2023 11:51 AM [facility] ALT 26 16 - 63 U/L 04/08/2023 11:51 AM [facility] TOTAL PROTEIN S/P/B 7.2 6.4 - 8.2 G/DL 04/08/2023 11:51 AM [facility] ALBUMIN S/P/B 3.9 3.4 - 5.0 G/DL 04/08/2023 11:51 AM [facility] ANION GAP 8.4 5.0 - 15.0 MMOL/L 04/08/2023 11:51 AM [facility] OSMOLALITY (CALC) 290 MOSM/KG 024 11:51 AM [facility] Comment:REFERENCE RANGE NOT ESTABLISHED GFR ESTIMATE >90 >89 ML/MIN/1. 73 M2 04/08/2023 11:51 AM [facility] GFR NOTES GFR REFERENCE S: 04/08/2023 11:51 AM [facility] Comment: THE ESTIMATED GFR IS [...] <15 ml/min/1.73 m2 04/08/2023 11:2 0 AM ASSISTANT PROFESSOR OF ART Best Álvarez MD LABORATORY Final Result [facility] [address] [place] [address], * (ABNORMAL) CBC W/DIFF AUTOMATED (04/08/2023 11:20 AM ASSISTANT PROFESSOR OF ART) WBC 14.87(H) 4.00 - 10.80 x10'3/uL 04/08/2023 11:36 AM [facility] RBC 5.62 4.50 - 6.10 x10'6/uL 04/08/2023 11:36 AM [facility] HGB 16.1 13.0 - 18.0 G/DL 04/08/2023 11:36 AM [facility] HCT 47.5 37.0 - 52.0 % 04/08/2023 11:36 AM [facility] MCV 84.5 78.0 - 100.0 FL 04/08/2023 11:36 AM [facility] MCH 28.6 27.0 - 31.0 PG 04/08/2023 11:36 AM [facility] MCHC 33.9 33.0 - 36.0 G/DL 04/08/2023 11:36 AM [facility] RDW 12.3 11.5 - 14.5 % 04/08/2023 11:36 AM [facility] PLT 213 150 - 350 x10'3/uL 04/08/2023 11:36 AM [facility] MPV 9.7 7.4 - 10.4 FL 04/08/2023 11:36 AM [facility] CBC COMMENT NORMAL REFERENCE RANGE NOT ESTABLISHED FOR THE PROPORTIONAL LEUKOCYTE DIFFERENTIAL. 04/08/2023 11:36 AM [facility] NEUTROPHILS % 89.7 % 04/08/2023 11:36 AM [facility] LYMPHOCYTES % 4.6 % 04/08/2023 11:36 AM [facility] MONOCYTES % 4.9 % 04/08/2023 11:36 AM [facility] EOSINOPHILS % 0.2 % 04/08/2023 11:36 AM [facility] BASOPHILS % 0.3 % 04/08/2023 11:36 AM [facility] IMMATURE GRANS % 0.3 % 04/08/19 11:36 AM [facility] NRBC 0.0 % 04/08/2023 11:36 AM [facility] ABS. NEUTROPHILS 13.32(H) 1.60 - 8.30 x10'3/uL 04/08/2023 11:36 AM [facility] ABS. LYMPHOCYTES 0.69(L) 0.80 - 4.70 x10'3/uL 04/08/2023 11:36 AM [facility] ABS. MONOCYTES 0.73 0.00 - 1.50 x10'3/uL 04/08/2023 11:36 AM [facility] ABS. EOSINOPHILS 0.03 0.00 - 0.40 x10'3/uL 04/08/2023 11:36 AM [facility] ABS. BASOPHILS 0.05 0.00 - 0.20 x10'3/uL 04/08/2023 11:36 AM ASSISTANT PROFESSOR OF ART [facility] ABS. IMMATURE GRANULOCYTES 0.05(H) 0.00 - 0.03 x10'3/uL 04/08/2023 11:36 AM ASSISTANT PROFESSOR OF ART [facility] ABS. NUCLEATED RBC'S 0.00 0.00 x10'3/uL 04/08/2023 11:36 AM ASSISTANT PROFESSOR OF ART [facility] 04/08/2023 11:2 0 AM ASSISTANT PROFESSOR OF ART us Best Álvarez MD LABORATORY Final Result [address] [address], * DIRECT BILIRUBIN (04/08/2023 11:19 AM ASSISTANT PROFESSOR OF ART) BILIRUBIN DIRECT S/P/B 0.2 0.0 - 0.2 MG/DL 04/08/2023 12:06 PM ASSISTANT PROFESSOR OF ART [facility] 04/08/2023 11:1 9 AM ASSISTANT PROFESSOR OF ART us Best Álvarez MD LABORATORY Final Result Performing Organization Address [facility]/ZIP Co de Phone Number [address] [address], [place] [phone] * RAPID STREP A (04/08/2023 11:19 AM ASSISTANT PROFESSOR OF ART) SPECIMEN SOURCE THROAT 04/08/2023 11:14 AM ASSISTANT PROFESSOR OF ART [facility] RAPID STREP TEST NEGATIVE NEGATIVE 04/08/2023 12:00 PM ASSISTANT PROFESSOR OF ART [facility] STRUCTURE OF ANTERIOR PORTION OF NECK / Unknown 04/08/2023 11:19 AM ASSISTANT PROFESSOR OF ART us Best Álvarez MD MICROBIOLOGY - GENERAL ORDERABLE S Final Result Performing Organization Address City/[facility]/ZIP Co de Phone Number [address] [place] [address], * CORONAVIRUS (COVID-19) ANTIGEN DIRECT OPTICAL (04/08/2023 11:19 AM ASSISTANT PROFESSOR OF ART) CORONAVIRUS ANTIGEN IA NEGATIVE NEGATIVE 04/08/2023 12:00 PM ASSISTANT PROFESSOR OF ART [facility] Comment: NEGATIVE RESULTS DO NOT [...] LABORATORIES. SPECIMEN TYPE NASAL 04/08/2023 11:14 AM ASSISTANT PROFESSOR OF ART [facility] NASAL NASAL STRUCTURE / Unknown 04/08/2023 11:19 AM ASSISTANT PROFESSOR OF ART us Best Álvarez MD MICROBIOLOGY - GENERAL ORDERABLE S Final Result [address] [address], * INFLUENZA A & B (04/08/2023 11:19 AM ASSISTANT PROFESSOR OF ART) Pathologist [facility] SPECIMEN TYPE (INFLUENZA) NASAL 04/08/2023 11:14 AM ASSISTANT PROFESSOR OF ART [facility] INFLUENZA A NEGATIVE NEGATIVE 04/08/2023 12:08 PM ASSISTANT PROFESSOR OF ART [facility] INFLUENZA B NEGATIVE NEGATIVE 04/08/2023 12:08 PM ASSISTANT PROFESSOR OF ART [facility] Comment: A NEGATIVE RESULT DOES NOT EXCLUDE INFLUENZA VIRUS INFECTION. ??IF INFLUENZA IS CIRCULATING IN YOUR COMMUNITY, A DIAGNOSIS OF INFLUENZA SHOULD BE CONSIDERED BASED ON A PATIENT'S CLINICAL PRESENTATION AND EMPIRIC ANTIVIRAL TREATMENT SHOULD BE CONSIDERED IF INDICATED. NASAL STRUCTURE / Unknown 04/08/2023 11:19 AM ASSISTANT PROFESSOR OF ART us Best Álvarez MD MICROBIOLOGY - GENERAL ORDERABLE S Final Result [facility] [address] [place] [address], documented in this encounter Visit Diagnoses Diagnosis [...] 04/08/23 at 1204 Given 04/08/2023 12:04 PM ASSISTANT PROFESSOR OF ART 100 mLs ondansetron (ZOFRAN) injection 4 mg 4 mg, Intravenous, Once, 1 dose, On 04/08/23 at 1115, IV push over 2-5 minutes. Given 04/08/2023 11:22 AM ASSISTANT PROFESSOR OF ART 4 mg sodium chloride 0.9% bolus infusion 1,000 mL 1,000 mL, Intravenous, Administer over 15 Minutes, Once, 1 dose, On 04/08/23 at 1115 New Bag 04/08/2023 11:22 AM ASSISTANT PROFESSOR OF ART 1,000 mLs documented in this encounter Active and Recently Administered Medications Times are shown in ASSISTANT PROFESSOR OF ART. Scheduled Medication Order 04/06/2023 04/07/2023 04/08/2023 ondansetron [...] Rule Out 04/08/2023 04/08/2023 04/08/2023 12:00 PM ASSISTANT PROFESSOR OF ART documented as of this encounter Care Teams Control Systems Specialist Relationship Specialty Start Date End Date Hugo Robbins MD [address] [place] [phone] PCP - General FAMILY PRACTICE 12/23/21 07/14/23 documented as of this encounter
--- OUTSIDE RECORDS SUMMARY | 2024-02-28 13:52 | XMS_ITS | Encounter Summary ---
Author Organization [facility] Address [address] [place] [address]. [place] [address] [place] [address] Care Team Providers Care Damascener Name Role Phone Hugo Robbins MD Primary Care Provider [phone] Reason for Visit * Reason Comments STD Screening Encounter Details Date Type Department Care Team (Late st Contact Info) Description 12/23/2021 4:27 PM CDT - 12/23/2021 7:26 PM CDT Emergency [facility] [address] July Rojo MD [address] [place] [address] STD Screening Discharge Disposition: Home or [...] Everywhere. * Screening for Sexually Transmitted Infections ([place] Sudanese) documented in this encounter Medications at Time [...] History: Diagnosis Date ??? Bipolar 1 disorder ([facility]) PAST SURGICAL HISTORY: No past surgical history [...] Range COLOR (U) YELLOW TRANSPARENCY CLEAR Specific [place] (U) 1.025 1.000 - 1.025 U PH [...] treatment. ED Course as of 12/24/21 075 [facility] Dec 23, 20211914 Patient was counseled [...] VE NON-REACTI VE 12/24/2021 12:51 PM CDT [facility] Comment:HIV 1 p24 Ag and HIV 1/ HIV 2 Ab not detected. 12/23/2021 5:50 PM CDT us July Rojo MD LABORATORY Final Res ult Performing Organization Address [facility]/ZIP Co de Phone Number [facility] [address] [place] [address], [place] [phone] * SYPHILIS/RPR/VDRL; QUAL (12/23/2021 5:50 PM CDT) RPR NON-REACTIV E NON-REACTI VE 12/27/2021 9:56 AM WELDING SPECIALIST [facility] 12/23/2021 5:50 PM CDT us July Rojo MD LABORATORY Final Res ult Performing Organization Address City/[facility]/ZIP Co de Phone Number [facility] [address] [place] [address], [place] [phone] * HEPATITIS PANEL,ACUTE (12/23/2021 5:50 PM CDT) HEPATITIS B SURFACE AG NON-REACT THAD NON-REACT THAD 12/24/2021 1:16 PM CDT [facility] Comment:HBsAg NOT DETECTED. HEP B CORE IGM NON-REACT THAD NON-REACT THAD 12/24/2021 1:16 PM CDT [facility] Comment: IgM ANTI HBc NOT DETECTED. DOES NOT EXCLUDE THE POSSIBILITY OF EXPOSURE TO OR INFECTION WITH HBV. NO RETEST REQUIRED. HIGH DOSES OF BIOTIN MAY INTERFERE WITH THIS TEST RESULT. CORRELATION TO CLINICAL HISTORY AND PRESENTATION RECOMMENDED. HAV IGM NON-REACT THAD NON-REACT THAD 12/24/2021 1:16 PM CDT [facility] Comment: IgM ANTI HAV NOT DETECTED. DOES NOT EXCLUDE THE POSSIBILITY OF EXPOSURE TO OR INFECTION WITH HAV. LEVELS OF IgM ANTI HAV MAY BE BELOW THE CUTOFF IN EARLY INFECTION. HEPATITIS C AB NON-REACT THAD NON-REACT THAD 12/24/2021 1:16 PM CDT [facility] Comment: ANTIBODIES TO HCV NOT DETECTED. DOES NOT EXCLUDE THE POSSIBILITY OF EXPOSURE TO HCV. 12/23/2021 5:50 PM CDT July Rojo MD LABORATORY Final Res ult [facility] [address] [place] [address], [id number] * CHLAM/GC/TRICHOMONAS PROFILE (12/23/2021 5:00 PM CDT) SPEC DESCRIPTION URINE 12/24/19 22 5:06 PM CDT [facility] CHLAMYDIA RNA TMA NEGATIVE NEGATIVE 022 2:05 AM CDT [facility] Comment:PERFORMED BY NUCLEIC ACID AMPLIFICATION N.GONORRHOEAE RNA TMA NEGATIVE NEGATIVE 12/25/2021 2:05 AM CDT [facility] Comment:PERFORMED BY NUCLEIC ACID AMPLIFICATION TRICHOMONAS NEGATIVE NEGATIVE 12/27/2021 12:00 PM WELDING SPECIALIST [facility] Comment:PERFORMED BY NUCLEIC ACID AMPLIFICATION URINE SPECIMEN / Unknown 12/23/2021 5:00 PM CDT us July Rojo MD MICROBIOLOGY - GENERAL OR DERABLES Final Result [facility] [address] [place] [address], [place] [phone] [facility] [address] [place] [address], [place] [phone] * (ABNORMAL) URINALYSIS (12/23/2021 5:00 PM CDT) COLOR (U) YELLOW 12/23/2021 6:39 PM CDT [facility] TRANSPARENCY CLEAR 12/23/2021 6:39 PM CDT [facility] SPECIFIC GRAVITY (U) 1.025 1.000 - 1.025 12/23/2021 6:39 PM CDT [facility] U PH 7.0 5.0 - 8.0 12/23/2021 6:39 PM CDT [facility] LEUKOCYTES (U) NEGATIVE NEGATIVE 12/23/2021 6:39 PM CDT [facility] NITRITES NEGATIVE NEGATIVE 12/23/2021 6:39 PM CDT [facility] PROTEIN (U) NEGATIVE NEGATIVE 12/23/2021 6:39 PM CDT [facility] URINE GLUCOSE NEGATIVE NEGATIVE 12/23/2021 6:39 PM CDT [facility] KETONES MG/DL (U) NEGATIVE NEGATIVE 12/23/2021 6:39 PM CDT [facility] UROBILINOGEN 1.0(H) <1.0 EU/DL 12/23/2021 6:39 PM CDT [facility] BILIRUBIN (U) NEGATIVE NEGATIVE 12/23/2021 6:39 PM CDT [facility] BLOOD (U) NEGATIVE NEGATIVE 12/23/2021 6:39 PM CDT [facility] WBC/HPF 0-5 0 - 5 /HPF 12/23/2021 6:39 PM CDT [facility] RBC/HPF 0-5 0 - 5 /HPF 12/23/2021 6:39 PM CDT [facility] EPI/LPF RARE /LPF 12/23/2021 6:39 PM CDT [facility] BACTERIA (U) TRACE /HPF 12/23/2021 6:39 PM CDT [facility] MUCUS PRESENT 12/23/2021 6:39 PM CDT [facility] URINE SPECIMEN OBTAINED BY CLEAN CATCH PROCEDURE / Unknown 12/23/2021 5:00 PM CDT us July Rojo MD URINE ORDERABLES Final Re sult [facility] [address] [place] [address], documented in this encounter Visit Diagnoses Diagnosis [...] documented as of this encounter Care Teams Damascener Relationship Specialty Start Date End Date Hugo Robbins MD [address] [place] [phone] PCP - General FAMILY PRACTICE 12/23/21 07/14/23 documented as of this encounter
--- OUTSIDE RECORDS SUMMARY | 2024-02-28 13:52 | XMS_ITS | Encounter Summary ---
Author Organization [facility] Address [address] [place] [address]. [place], [place] [address] [place] [address] Care Team Providers Care Scientific Laboratory Supervisor Name Role Phone Hugo Robbins MD Primary Care Provider [phone] Encounter Details Date Type Department Care Team [...] documented as of this encounter Care Teams Scientific Laboratory Supervisor Relationship Specialty Start Date End Date Hugo Robbins MD [address] [place] [phone] PCP - General FAMILY PRACTICE 12/23/21 07/14/23 documented as of this encounter
== END 2024-02-21 17:13 | disposition home or self-care (01) ==
PROVIDERS: Emergency Provider Emergency Medicine; PCP Nurse Practitioner Family
DX: J02.8 Acute pharyngitis due to other specified organisms (principal); F17.200 Nicotine dependence, unspecified, uncomplicated; Z20.822 Contact with and (suspected) exposure to COVID-19
CPT/HCPCS: 36415; 80048; 83605; 85025; 87637; 99283; A9270

== ENCOUNTER 2024-04-18 13:01 | Emergency (ER) | payer MEDICARE, SELFPAY ==
[2024-04-18 13:01] VITALS: BP 105/78; PULSE 96; RESP 18; TEMP 38.1; O2SAT 99
[2024-04-18 13:05] VITALS: O2SAT 100
[2024-04-18] MEDS: IBUPROFEN 400 MG TABLET PO (13:35)
--- NOTE | 2024-04-18 13:44 | ED.URI ---
HPI - URI/Sore Throat General Chief Complaint: Upper Respiratory Infection Stated Complaint: cough and vomiting Time Seen by Provider: 04/18/24 13:11 Source: patient Mode of arrival: ambulatory Limitations: no limitations History of Present Illness HPI Narrative: this is a 33-year-old male with no significant past medical history presents with history of headache with body aches fever with no shortness of breath does have some nausea with no vomiting with no abdominal pain no chest pain no diarrhea constipation. MD elicited complaint: fever, rhinorrhea and nasal congestion Onset (ago): day(s) Consistency: constant Severity: mild Able to tolerate fluids by mouth: Yes Related Data Allergies Allergy/AdvReac Type Severity Reaction Status Date / Time cat dander Allergy Difficulty Verified 04/18/24 13:07 Breathing divalproex sodium (From Allergy Abdominal Verified 04/18/24 13:07 Depakote) Pain methylphenidate (From Allergy Jittery Verified 04/18/24 13:07 Ritalin) olanzapine (From Zyprexa) Allergy Unknown Verified 04/18/24 13:07 Review of Systems Review of Systems: All systems reviewed & are unremarkable except as noted in HPI and below PMFSH Past Medical History Medical History Recurrent infection of skin Bronchitis Influenza Bipolar 1 disorder Social History Social History Smoking status: Current every day smoker Exam Const: General: healthy appearing and no acute distress Nutritional Appearance: well nourished Orientation/consciousness: patient oriented x3 Limitations: no limitations HENMT: Head: normal to inspection Other: Nasal congestion with clear nasal discharge Neck: Neck: normal visual inspection, no lymphadenopathy and no meningeal signs Chest: Chest palpation & inspection: normal inspection of the chest Resp: Effort & Inspection: normal respiratory effort Auscultation: clear to auscultation bilaterally Cardio: Rate: regular rate Rhythm: regular rhythm GI: GI Palp: Yes Soft to palpation Auscultation: normal bowel sounds Course Course Emergency Course: patient received a dose of p.o. Motrin 400mg, and COVID RSV influenza performed and reviewed with patient. 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 Supervision impression upper respiratory tract infection Vital Signs Vital signs: Vital Signs Temperature 38.1 C H 04/18/24 13:01 Pulse Rate 96 04/18/24 13:01 Respiratory Rate 18 04/18/24 13:01 Blood Pressure 105/78 04/18/24 13:01 Pulse Oximetry 99 04/18/24 13:01 Oxygen Delivery Room Air 04/18/24 13:01 Temperature 37.2 C 04/18/24 13:57 Pulse Rate 96 04/18/24 13:01 Respiratory Rate 18 04/18/24 13:01 Blood Pressure 105/78 04/18/24 13:01 Pulse Oximetry 100 04/18/24 13:05 Oxygen Delivery Room Air 04/18/24 13:05 MDM - URI/Sore Throat Lab Data Labs: Lab Results 04/18/24 Range/Units 13:11 Influenza A (RT-PCR) Negative (Negative) Influenza B (RT-PCR) Negative (Negative) RSV (RT-PCR) Negative (Negative) SARS-CoV-2 RNA (RT-PCR) Positive A (Negative) Critical Care Time Critical Care Time Critical Care Time: No Discharge Plan Discharge Clinical Impression: COVID-19 Patient Disposition: Home, Self-Care Condition: Stable Instructions: Antibiotic Form, COVID-19 (Coronavirus Disease 2019) (ED) Additional Instructions: advised take medication as prescribed and follow with primary care physician about 1 week for further evaluation and treatment. Patient Language: Nepalese Prescriptions: New Paxlovid 300 mg (150 mg x 2)-100 mg tablets,dose pack See Rx Instructions .ROUTE .COMPLEX Qty: 30 0RF Rx Instructions: take TWO 150 mg tablets of nirmatrelvir with ONE 100 mg tablet of ritonavir twice daily for 5 days ondansetron 4 mg tablet,disintegrating 4 mg PO Q6H PRN (Reason: nausea and vomiting) Qty: 14 0RF No Action ondansetron 8 mg tablet,disintegrating 8 mg PO Q12H PRN (Reason: nausea and vomiting) Qty: 20 0RF lamotrigine 150 mg tablet 150 mg PO DAILY 90 Days Qty: 90 1RF Follow-up/Referrals: Kj Griffin DO [Primary Care Provider] - Stand Alone Forms: Work/School Release IP Time of Disposition: 13:51
[2024-04-18 13:46] LABS: SARS-CoV-2 RNA PCR Positive (Negative)
[2024-04-18 13:47] LABS: Influenza A QL RT-PCR Negative (Negative); Influenza B QL RT-PCR Negative (Negative); RSV RNA, RT-PCR Negative (Negative)
[2024-04-18 13:57] VITALS: TEMP 37.2
--- OUTSIDE RECORDS SUMMARY | 2024-04-18 14:01 | XMS_ITS | Clinical Summary ---
Author Organization [facility] Address [facility] [place] [address] Care Team Providers Care Latrine Cleaner Name Role Phone Konstantin Licona MD Primary Care Provider [phone] Allergies Active Allergy Reactions Criticality Noted Date [...] = 0.6 oz pur e alcohol) [facility] Utilities Answer Date Recorded In the past 12 months has e [employer], gas, oil, or water [employer] threatened to shut off services in your [...] any time in the past 12 m [facility], were you homeless or living in a care home (including now)? No 07/14/2023 Sex and Gender Information Value Date Recorded Sex Assigned at Not on file Legal Sex Male 4:56 PM CDT Gender Identity Not on file Sexual Orientation Not on file Last Filed Vital Signs Vital Sign Reading Time Taken Comments Blood Pressure 110/51 07/15/2023 4:28 AM CDT Pulse 49 07/15/2023 4:28 AM CDT Temperature 35.3 C (95.5 F) 07/15/2023 4:28 AM CDT Respiratory Rate 16 07/15/2023 4:28 AM CDT [...] patient's age to complete this topic Meningococcal B Vaccine Aged Out No l onger eligible based on patient's age to complete [...] THAD NON-REACT THAD 12/24/2021 1:[address] [facility] Comment:HBsAg NOT DETECTED. HEP B CORE IGM NON-REACT THAD NON-REACT THAD 12/24/2021 1:[address] [facility] Comment: IgM ANTI HBc NOT DETECTED. DOES NOT EXCLUDE THE POSSIBILITY OF EXPOSURE TO OR INFECTION WITH HBV. NO RETEST REQUIRED. HIGH DOSES OF BIOTIN MAY INTERFERE WITH THIS TEST RESULT. CORRELATION TO CLINICAL HISTORY AND PRESENTATION RECOMMENDED. HAV IGM NON-REACT THAD NON-REACT THAD 12/24/2021 1:[address] [facility] Comment: IgM ANTI HAV NOT DETECTED. DOES NOT EXCLUDE THE POSSIBILITY OF EXPOSURE TO OR INFECTION WITH HAV. LEVELS OF IgM ANTI HAV MAY BE BELOW THE CUTOFF IN EARLY INFECTION. HEPATITIS C AB NON-REACT THAD NON-REACT THAD 12/24/2021 1:[address] [facility] Comment: ANTIBODIES TO HCV NOT DETECTED. DOES NOT EXCLUDE THE POSSIBILITY OF EXPOSURE TO HCV. 12/23/2021 5:50 PM CDT us July Rojo MD LABORATORY Final Res ult 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
--- OUTSIDE RECORDS SUMMARY | 2024-04-18 14:36 | XMS_ITS | Clinical Summary ---
Author Organization [facility] Address [facility] [place] [address] Care Team Providers Care Merchandise Shopper Name Role Phone Konstantin Licona MD Primary Care Provider [phone] Allergies Active Allergy Reactions Criticality Noted Date [...] drink = 0.6 oz pur e alcohol) [facility] Utilities Answer Date Recorded In the past 12 months has e [employer], gas, oil, or water [employer] threatened to shut off services in your [...] any time in the past 12 m [facility], were you homeless or living in a senior care (including now)? No 07/14/2023 Sex and Gender [...] THAD NON-REACT THAD 12/24/2021 1:16 PM CDT [facility] Comment:HBsAg NOT DETECTED. HEP B CORE IGM NON-REACT THAD NON-REACT THAD 12/24/2021 1:16 PM CDT [facility] Comment: IgM ANTI HBc NOT DETECTED. DOES NOT EXCLUDE THE POSSIBILITY OF EXPOSURE TO OR INFECTION WITH HBV. NO RETEST REQUIRED. HIGH DOSES OF BIOTIN MAY INTERFERE WITH THIS TEST RESULT. CORRELATION TO CLINICAL HISTORY AND PRESENTATION RECOMMENDED. HAV IGM NON-REACT THAD NON-REACT THAD 12/24/2021 1:16 PM CDT [facility] Comment: IgM ANTI HAV NOT DETECTED. DOES NOT EXCLUDE THE POSSIBILITY OF EXPOSURE TO OR INFECTION WITH HAV. LEVELS OF IgM ANTI HAV MAY BE BELOW THE CUTOFF IN EARLY INFECTION. HEPATITIS C AB NON-REACT THAD NON-REACT THAD 12/24/2021 1:16 PM CDT [facility] Comment: ANTIBODIES TO HCV NOT DETECTED. DOES NOT EXCLUDE THE POSSIBILITY OF EXPOSURE TO HCV. 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
== END 2024-04-18 13:57 | disposition home or self-care (01) ==
PROVIDERS: Emergency Provider Emergency Medicine; PCP Family Medicine
DX: U07.1 COVID-19 (principal); F17.200 Nicotine dependence, unspecified, uncomplicated
CPT/HCPCS: 87637; 99283; A9270